=== PATIENT | female | born 1975 | race African-American/Black ===

== ENCOUNTER 2017-11-04 17:26 | Observation (INO) | payer MEDICAID ==
[~2017-11-04] VITALS: Ht 172.7 cm; Wt 113.8 kg
--- NOTE | ~2017-11-04 | HP ---
PATIENT: MARCI DUENAS MEDICAL RECORD: [id number] ACCOUNT: [id number] LOCATION:[address] : 77 ADMISSION DATE: 11/04/17 HISTORY AND PHYSICAL EXAMINATION DATE OF ADMISSION: 11/04/2017 CHIEF COMPLAINT: Dizzy, lightheaded, chest pain, and elevated blood pressure. 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 In the ER, blood pressure was elevated. EKG looked okay. Her troponin has bumped up a little. She is admitted for further evaluation. PAST MEDICAL AND SURGICAL HISTORY: Diabetes, hypertension and she states she had a cardiac workup about a year ago and she does remember the word was congestive heart failure. This was done at [facility]. PAST SURGICAL HISTORY: section times 3. ALLERGIES: None. HOME MEDICATIONS: Lisinopril 20 mg once a day, metformin 500 mg twice a day. She was on a statin drug, but stopped due to side effects. HABITS: No smoking, alcohol or drugs. SOCIAL HISTORY: She is single, lives with her 3 children. 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 FAMILY HISTORY: Father is alive. He has had 2 heart attacks and has hypertension. Mother is alive; she has diabetes and hypertension. REVIEW OF SYSTEMS: GENERAL: No major weight changes. HEENT: No particular sinus or allergy problems. RESPIRATORY: She has had pneumonia once. No diagnosis of asthma or emphysema. CARDIAC: Again, she had a heart workup at [facility] over a year ago and it was reportedly normal. GASTROINTESTINAL: Denies diarrhea, constipation, or reflux. GENITOURINARY: No significant problems there. MUSCULOSKELETAL: She has some aches and pains in her hands. NEUROLOGIC: No headaches or seizures. PSYCHIATRIC: Denies depression or melancholia. PHYSICAL EXAMINATION: VITAL SIGNS: Temperature 98.4, pulse 85, respirations 16, blood pressure 162/82, O2 sat 99%. GENERAL: She is awake and alert, does not appear to be in acute distress. HEENT: Unremarkable. NECK: Supple. HEART: Regular rate and rhythm. LUNGS: Fairly clear. ABDOMEN: Soft, flat, and nontender. HISTORY AND PHYSICAL [id number] MARCI DUENAS EXTREMITIES: No edema. NEUROLOGIC: Intact. IMAGING: Chest x-ray shows no acute cardiopulmonary process. LABORATORY DATA: CBC showed a white count of 6200, hemoglobin 10.9, hematocrit 33.8. Chemistry, basic metabolic panel is all normal except glucose is 399, calcium is 8.8. Liver functions are normal. Troponin is elevated at 0.229. ProBNP is 69. Urinalysis; trace blood, positive nitrite, trace leukocyte esterase, 10 to 25 white blood cells, many bacteria, 1000 mg per deciliter of glucose. ASSESSMENT: 1. Chest pain with elevated troponin. 2. Diabetes. 3. Hypertension. PLAN: We will admit. Consult cardiology. Other tests and procedures as warranted. TRANSINT:[id number] Voice Confirmation ID: [id number] DOCUMENT ID: [id number] AURORA MORE MD at 1012 CC: [id number] DICTATION DATE: 11/05/17 180 PLC TECHNICIAN: 11/05/17 191 ADM IN [facility] [address] [id number]
[2017-11-04 18:22] LABS: BASOPHILS 0.3 % (0-2); EOSINOPHILS 1.6 % (0-7); HEMATOCRIT 33.8 % (36.0-48.0); HEMOGLOBIN 10.9 g/dL (12-16); IMMATURE GRANULOCYTES 0.2 % (0-5); LYMPHOCYTES 39.1 % (15-50); MCH 27.3 pg (26.0-34.0); MCHC 32.2 g/dL (31.0-37.0); MCV 84.7 fL (80.0-100.0); MEAN PLATELET VOLUME 9.2 fL (7.4-10.4); MONOCYTES 7.4 % (2-11); NEUTROPHILS 51.4 % (40-80); PLATELET COUNT 367 10x3/uL (130-400); RBC 3.99 10x6/uL (4.00-5.40); RDW 12.7 % (11.5-14.5); WBC 6.2 10x3/uL (4.8-10.8)
[2017-11-04 18:39] LABS: ALBUMIN 3.3 g/dL (3.4-5.0); ANION GAP 9.2 mmol/L (8-16); BILIRUBIN - TOTAL 0.21 mg/dL (0.2-1.3); CALCIUM 8.8 mg/dL (8.5-10.1); CARBON DIOXIDE 30.7 mmol/L (21.0-32.0); POTASSIUM - SERUM 3.9 mmol/L (3.5-5.1); PROTEIN - SERUM 7.1 g/dL (6.4-8.2)
[2017-11-04 18:45] LABS: TROPONIN-I 0.235 ng/mL (0.000-0.060)
[2017-11-04 19:39] LABS: APPEARANCE SLT CLOUDY (CLEAR); COLOR YELLOW (YELLOW); GLUCOSE 1000 mg/dL (NEGATIVE); NITRITE POSITIVE (NEGATIVE); PROTEIN NEGATIVE (NEGATIVE); SPECIFIC GRAVITY 1.015 (1.005-1.020)
[2017-11-04 19:40] LABS: BILIRUBIN NEGATIVE (NEGATIVE); KETONE NEGATIVE (NEGATIVE); UROBILINOGEN NORMAL (NORMAL)
[2017-11-04 19:42] LABS: BACTERIA MANY /hpf (NONE SEEN); EPITHELIAL CELLS 0-5 /hpf (0-5)
[2017-11-05] VITALS (7 sets, daily range): BP systolic 145–174; BP diastolic 80–98; Ht 172.7 cm; Wt 113.8 kg
[2017-11-05 00:06] LABS: CKMB 1.1 U/L (0.0-3.6); CREATINE KINASE 103 UL (21-215)
[2017-11-05 00:07] LABS: TROPONIN-I 0.229 ng/mL (0.000-0.060)
[2017-11-05] MEDS ORDERED: PRINIVIL20 MG PO (02:47)
[2017-11-05] MEDS ORDERED: GLUCOPHAGE500 MG PO (02:49)
[2017-11-05 04:36] LABS: CKMB 0.9 U/L (0.0-3.6); CREATINE KINASE 105 UL (21-215)
[2017-11-05 04:43] LABS: TROPONIN-I 0.246 ng/mL (0.000-0.060)
[2017-11-05 10:05] LABS: CKMB 0.8 U/L (0.0-3.6); CREATINE KINASE 101 UL (21-215)
[2017-11-05 10:06] LABS: TROPONIN-I 0.251 ng/mL (0.000-0.060)
[2017-11-06 06:11] VITALS: BP 151/87
[2017-11-06 08:36] VITALS: BP 151/80
[2017-11-06 11:50] VITALS: BP 139/80
[2017-11-06] MEDS ORDERED: LEVAQUIN250 MG PO (13:48)
[2017-11-06] MEDS ORDERED: GLUCOPHAGE1000 MG PO (13:49)
[2017-11-06 15:12] VITALS: BP 158/80
== END 2017-11-06 15:44 | disposition home or self-care (01) ==
LOC: D.ER 17:26 → D.M2 21:05 → OBSVTIME 21:05 → D.M2 11-06 15:44
PROVIDERS: Emergency Medicine; Family Medicine; Physician Assistant
DX: N39.0 Urinary tract infection, site not specified (principal); B96.20 Unspecified Escherichia coli [E. coli] as the cause of diseases classified elsewhere; E11.65 Type 2 diabetes mellitus with hyperglycemia; I10 Essential (primary) hypertension; I24.8 Other forms of acute ischemic heart disease

== ENCOUNTER 2018-01-04 17:37 | Observation (INO) | payer MEDICAID ==
[~2018-01-04] VITALS: Ht 172.7 cm; Wt 109.3 kg
--- NOTE | ~2018-01-04 | HP ---
PATIENT: MARCI DUENAS MEDICAL RECORD: [id number] ACCOUNT: [id number] LOCATION:[address] : 77 ADMISSION DATE: 01/04/18 HISTORY AND PHYSICAL EXAMINATION DIAGNOSES: 1. Acute coronary syndrome. 2. Diabetes. 3. Family history of coronary artery disease. HISTORY OF PRESENT ILLNESS: Mrs. Duenas has no history of ischemic heart disease. She began having chest tightness yesterday. Her troponin is mildly elevated. She has continued to have episodes of chest tightness. REVIEW OF SYSTEMS: The patient reports easy bruising but reports no swollen glands. The patient reports no fever, no night sweats, no significant weight gain, no significant weight loss. No significant exercise tolerance. The patient reports no dry eyes, no irritation, no vision change. Patient reports no difficulty hearing and no ear pain. Patient reports no frequent nose bleeds or nose and sinus problems. Patient reports on arm pain on exertion. No shortness of breath while lying down. No history of heart murmur. Patient reports no cough, no wheezing or coughing up blood. Patient reports no abdominal pain, no vomiting. Normal appetite. No diarrhea and not vomiting blood. No nausea and no constipation. Patient reports no incontinence. No difficulty urinating. No hematuria. No increased frequency. Patient reports no muscle aches. No weakness, no arthralgias, no back pain. No swelling of the extremities. Patient reports no abnormal mole, no jaundice, no rashes. Reports no loss of consciousness. No weakness and no numbness. No seizures, dizziness, or headaches. The patient reports no depression, no sleep disturbance, feeling safe in a relationship and no alcohol abuse. Patient reports on fatigue. Reports no runny nose or sinus pressure. No itching, no hives, and no frequent sneezing. PHYSICAL EXAMINATION: GENERAL APPEARANCE: Well-nourished, well-developed, appears stated age. Level of distress, comfortable. PSYCHIATRIC: Mental status, alert, normal affect. Orientation, oriented to time, place and person. EYES: Lids and conjunctiva, noninjected. No discharge, no pallor. ENT: Lips, teeth, gums, normal dentition. Oropharynx, no cyanosis, no pallor. NECK: Carotid arteries, bilateral normal upstroke, no bruits, no thrills. JUGULAR VEINS: No jugular venous pressure or distention. CERVICAL LYMPH NODES: Nontender, nonenlarged. THYROID: Not enlarged. Nontender. No nodules. LUNGS: Respiratory effort, unlabored. CHEST: Normal curvature. No thoracic deformity. No chest wall tenderness. Percussion, resonant. Auscultation, clear. No wheezes, no rales, no rhonchi. CARDIOVASCULAR: Precordial exam, nondisplaced. No heaves or pericardial thrills. Rate and rhythm, regular. Heart sounds, normal S1, normal S2. No S3, no gallop, no rub. Systolic murmur, not heard. Diastolic murmur, not heard. EXTREMITIES: No cyanosis, no edema. Peripheral pulses, full and equal in all extremities, except as noted. No bruits appreciated. ABDOMEN: Soft, nondistended. Normal aorta. No bruit. Nontender. No masses. Liver, nontender, no hepatomegaly. Spleen, nontender, no splenomegaly. MUSCULOSKELETAL: No joint tenderness. No joint swelling. No erythema. HISTORY AND PHYSICAL [id number] MARCI DUENAS NEUROLOGICAL: Normal gait, normal strength, normal tone. SKIN: Warm and dry. OVERALL IMPRESSION: Acute coronary syndrome with mildly elevated troponin with continued chest pain. We will proceed with coronary angiography. Further care depends upon the findings of the angiography. TRANSINT:[id number] Voice Confirmation ID: [id number] DOCUMENT ID: [id number] MIRIAM HARMON MD at 1202 CC: [id number] DICTATION DATE: 01/05/18839 NATIONAL SALES REPRESENTATIVE: 01/05/18922 DIS IN 01/05/18 [place] [address]
--- NOTE | ~2018-01-04 | OP ---
PATIENT NAME: MARCI DUENAS MEDICAL RECORD: [id number] :77 LOCATION:D[address]M2 [address].2121 ADMISSION DATE:01/04/18 SURGEON: MIRIAM HARMON MD DATE OF OPERATION: 01/05/2018 PROCEDURES: 1. Left heart catheterization. 2. Selective coronary angiography. 3. Left ventriculogram. INDICATION: Elevated troponin, acute coronary syndrome, angina. PROCEDURE IN DETAIL: After informed consent was obtained and after detailed explanation of risks, benefits as well as alternative therapies, the patient elected to proceed with angiogram and heart catheterization. The right femoral area was prepped and draped in normal sterile fashion. Right femoral artery was cannulated via modified Seldinger technique with placement of 5-Iranian sheath. All catheters exchanged through this sheath. FINDINGS: The left ventriculogram was performed in standard 30-degree GARCIA view, reveals good cardiac wall motion throughout all segments. Overall ejection fraction estimated 60%. SELECTIVE CORONARY ANGIOGRAPHY: Left main, left anterior descending, left circumflex, right coronary all have minimal irregularities, but no discrete flow-limiting stenosis. OVERALL IMPRESSION: Minimal coronary artery disease is present. No flow-limiting stenosis. Her elevated troponin and chest pain are secondary to demand ischemia. Standard medical management on treatment of the heart rate and blood pressure. TRANSINT:[id number] Voice Confirmation ID: [id number] DOCUMENT ID: [id number] MIRIAM HARMON MD at 1202 CC: [id number] DICTATION DATE: 01/05/18 0920 DONOR RELATIONS MANAGER: 01/05/18 1121 DIS IN 01/05/18 [address] [place] [address]
--- NOTE | ~2018-01-04 | HEMODYNAMI ---
PATIENT:MARCI DUENAS MEDICAL RECORD: [id number] : 77 LOCATION:[address] [place] [facility] [id number] ADMISSION DATE: 01/04/18 Generatedon:01/05/20189:20 Patient name: MARCI DUENAS Patient #: [id number] SSN: : 1975 Date of study: 01/05/2018 Page: Of Hemodynamic Procedure Report Patient Data Patient Demographics Procedure consent was obtained First Name: MARCI Gender: Female Last Name: HENRIQUE : 1975 Middle Initial: E Age: 42 year(s) Patient #: [id number] Race: Black Additional ID: [id number] Contact details Address: [address] [place] [address] State: [place] City: [place] Zip code: [address] Past Medical History Allergies: No known allergies Admission Admission Data Admission Date: 01/04/2018 Admission Time: 21:36 Room #: 2121 Procedure Procedure Types Cath Procedure Diagnostic Procedure LHC LHC w/Coronaries Procedure Description Procedure Date Procedure Date: 01/05/2018 Procedure Start Time: 9:11 Procedure End Time: 9:20 Procedure Staff Name Function Basim Avalos MD Performing Physician Naila Reid RT Monitor Lm Yi RN Nurse Irma Hahn RT Scrub Procedure Data Cath Procedure Fluoroscopy Diagnostic fluoroscopy Total fluoroscopy Time: 0.8 time: 0.8 min min Diagnostic fluoroscopy Total fluoroscopy dose: 423 dose: 423 mGy mGy Contrast Material Contrast Material Type Amount (ml) Isovue 300 50 Entry Location Entry Primary Successful Side Size Upsize Upsize Entry Closure Succes sful Closure Location (Fr) 1 (Fr) 2 (Fr) Remarks Device Remarks Femoral Right 5 Fr Exoseal artery Estimated blood loss: 5 ml Diagnostic catheters Device Type Used For End Catheter Placement MULTIPACK Pigtail 5 Fr LV Angiography catheter MULTIPACK JL 4.0 5Fr Left Coronary catheter Angiography MULTIPACK 3DRC 5Fr Right Coronary catheter Angiography Procedure Complications No complications Procedure Medications Medication Administration Route Dosage 0.9% NaCl I.V. 100 ml/hr Oxygen NC 2 l/min Heparin Flush Bag added to field 2 bags (1000units/500ml NS) Lidocaine 2% added to field 20 Versed I.V. 1 mg Fentanyl I.V. 50 mcg Versed I.V. 1 mg Fentanyl I.V. 50 mcg Hemodynamics Rest Heart Rate: 104 (bpm) Snapshots Pre Cath Intra NCS Post Cath Vital Signs Time Heart Resp SPO2 etCO2 NIBP (mmHg) Rhythm Pain Sedation Rate (ipm) (%) (mmHg) Status Level (bpm) 9:07:01 89 19 100 28.4 167/101(133) NSR 0 (11) 10(A) , No pain 9:12:00 88 21 100 40.3 187/106(143) NSR 0 (11) 10(A) , No pain 9:17:03 93 16 100 42.6 181/97(146) NSR 0 (11) 10(A) , No pain Medications Time Medication Route Dose Verified Delivered Reason Notes Effec tiveness by by 9:06:53 0.9% NaCl I.V. 100 Lm Lm Per ml/hr Lorigan Lorigan physician RN RN 9:07:03 Oxygen NC 2 Lm Lm Per l/min Lorigan Lorigan physician RN RN 9:07:14 Heparin Flush added 2 Lm Lm used for Bag to bags Lorigan Lorigan procedure (1000units/500ml field RN RN NS) 9:07:30 Lidocaine 2% added 20ml Lm Ml for local to vial Lorigan Lorigan anesthetic field RN RN 9:11:01 Versed I.V. 1 mg Lm Lm for Lorigan Lorigan sedation RN RN 9:11:10 Fentanyl I.V. 50 Lm Lm for mcg Lorigan Lorigan sedation RN RN 9:15:16 Versed I.V. 1 mg Lm Lm for Lorigan Lorigan sedation RN RN 9:15:26 Fentanyl I.V. 50 Lm Lm for mcg Lorigan Lorigan sedation RN metallurgical engineering technician Log Time Note 8:47:01 Naila Counts RT(R) sent for patient. Start room use. 8:57:48 Time tracking: Call back 8:57:52 Plan of Care:Hemodynamics will remain stable., Cardiac rhythm will remain stable., Comfort level will be maintained., Respiratory function will remain adequate., Patient/ family verbilizes understanding of procedure., Procedure tolerated without complication., Recovers from procedure without complications.. 8:57:56 Patient received from PCU to CCL 1 Alert and oriented. Tansferred to table in Supine position. 8:57:57 Warm blankets applied, and daniela hugger turned on for patient comfort. 8:57:58 Correct patient and procedure confirmed by team. 8:57:59 Signed procedure consent form obtained from patient. 8:58:00 ECG and BP/O2 sat monitors applied to patient. 8:58:01 Full Disclosure recording started 9:05:51 Vital chart was started 9:05:54 Rhythm: sinus rhythm 9:06:03 H&P Date Dictated: 01/05/2018 ER History on chart., New H&P dictated by physician.. 9:06:04 Pre-procedure instructions explained to patient. 9:06:04 Pre-op teaching completed and patient verbalized understanding. 9:06:06 Family in waiting room. 9:06:07 Patient NPO since Midnight. 9:06:14 Patient allergic to No known allergies 9:06:16 Is the patient allergic to Iodine/contrast media? No. 9:06:19 Is patient on blood thinner?No 9:06:20 Patient diabetic? Yes. 9:06:21 If diabetic: On Metformin? Yes 9:06:23 If on Metformin: Last Dose? 01/04/2018 9:06:27 Previous problem with sedation/anesthesia? No ? 9:06:28 Snore? Yes 9:06:29 Sleep apnea? No 9:06:30 Deviated septum? No 9:06:31 Opens mouth fully? Yes 9:06:31 Sticks out tongue? Yes 9:06:33 Airway obstruction? No ? 9:06:34 Dentures? No ? 9:06:37 Pre procedure: right dorsailis pedis pulse 2+ Normal; easily identifiable; not easily obliterated 9:06:41 Modified Lloyd's test Ulnar > 7 seconds. 9:06:43 Patient pain scale 0/10 ?. 9:06:47 IV patent on arrival in left forearm with 0.9% NaCl at O. 9:06:51 Lab results completed and on chart. 9:06:53 0.9% NaCl 100 ml/hr I.V. was administered by Lm Lorigan RN; Per physician; 9:06:53 Right groin area was prepped with chlora-prep and draped in sterile fashion 9:06:54 Alarms reviewed by R. N. 9:06:54 Sharps counted by scrub and verified by R.N. 9:06:59 Use device set Femoral Dx 9:07:00 ACIST Syringe (15592) opened to sterile field. 9:07:00 Bag Decanter (2002S) opened to sterile field. 9:07:00 Medline Cath Pack ([id number]) opened to sterile field. 9:07:01 SHEATH 5FR Nebo (IQB324) opened to sterile field. 9:07:01 DIAGNOSTIC WIRE .035 260cm J wire (037813) opened to sterile field. 9:07:03 Oxygen 2 l/min NC was administered by Lm Yi RN; Per physician; 9:07:05 ACIST Hand Control (37179) opened to sterile field. 9:07:06 ACIST Manifold (18892) opened to sterile field. 9:07:06 DIAGNOSTIC Multipack 5Fr catheter set ([id number]) opened to sterile field. 9:07:07 Tegaderm 4 x 4 (1626W) opened to sterile field. 9:07:07 PERCUTANEOUS ENTRY 19GA needle opened to sterile field. 9:07:14 Heparin Flush Bag (1000units/500ml NS) 2 bags added to field was administered by Lm Yi RN; used for procedure; 9:07:30 Lidocaine 2% 20ml vial added to field was administered by Lm Yi RN; for local anesthetic; 9:09:11 Final Timeout: patient, procedure, and site verified with staff and physician. All members of the team are in agreement. 9:09:13 Right groin site verified by team. 9:09:15 Physical assessment completed. ASA score P 2 - A patient with mild systemic disease as per Basim Avalos MD. 9:09:18 Sedation plan: IV Moderate Sedation Medication:Versed, Fentanyl 9:11:01 Versed 1 mg I.V. was administered by Lm Yi RN; for sedation; 9:11:10 Fentanyl 50 mcg I.V. was administered by Lm Yi RN; for sedation; 9:11:23 Zero performed for pressure channel P1 9:11:28 Procedure started. 9:11:30 Local anesthetic to right femoral artery with Lidocaine 2% by Basim Avalos MD.INITIAL ACCESS ONLY 9:11:38 A 5 Fr sheath was inserted into the Right Femoral artery 9:11:45 Baseline sample Acquired. 9:12:35 A MULTIPACK Pigtail 5 Fr catheter was advanced over the wire and used for LV Angiography. 9:12:38 Zero performed for pressure channel P1 9:12:41 Zero performed for pressure channel P1 9:12:43 Zero performed for pressure channel P1 9:12:46 Zero performed for pressure channel P1 9:13:14 LV gram done using GARCIA 9:: Injector settings: Ml/sec: 5, Volume: 15, 9:13: EF : 60 % 9::28 Catheter removed. 9:14:01 A MULTIPACK JL 4.0 5Fr catheter was advanced over the wire and used for Left Coronary Angiography. 9:14:57 Catheter removed. 9:15:05 A MULTIPACK 3DRC 5Fr catheter was advanced over the wire and used for Right Coronary Angiography. 9:15:16 Versed 1 mg I.V. was administered by Lm Yi RN; for sedation; 9:15:26 Fentanyl 50 mcg I.V. was administered by Lm Yi RN; for sedation; 9:15:39 Catheter removed. 9:15:44 EXOSEAL 5Fr (EX500) opened to sterile field. 9:15:52 Sheath removed intact; hemostasis achieved with Exoseal to the Right Femoral artery. 9:15:54 Procedure ended.(Physican Out) 9:16:03 Fluoroscopy time 00.80 minutes. 9:16:06 Flurop Dose total: 423 9:16:06 Fluoroscopy dose: 423 mGy 9:16:15 Contrast amount:Isovue 300 50ml. 9:16:17 Sharps counted by scrub and verified by R.N. 9:16:18 Insertion/operative site no bleeding no hematoma. 9:16:21 Post-op/insertion site Right Femoral artery dressed using a 4 x 4 and Tegaderm. 9:16:25 Post right femoral artery:stable, clean and dry 9:16:26 Post Procedure Pulses reassessed and unchanged 9:16:39 Post-procedure physical assessment completed. ASA score P 2 - A patient with mild systemic disease as per Basim Avalos MD. 9:16:47 Post procedure rhythm: unchanged. 9:16:50 Estimated blood loss: 5 ml 9:16:51 Post procedure instruction explained to patient.Patient verbalizes understanding. 9:16:56 Patient needs reinforcement of post procedure teaching. 9:17:05 Procedure Complication : No complications 9:17:07 See physician's report for complete and final results. 9:17:20 Procedure and supply charges have been captured, reviewed, submitted and are correct. 9:20:24 Vital chart was stopped 9:20:26 Report given to PCU. 9:20:28 Patient transfered to PCU with Bed. 9:20:30 Procedure ended. 9:20:30 Full Disclosure recording stopped 9:20:38 End room use (Document Last) Device Usage Item Name Manufacture Quantity Catalog Hospital Part Current Minimal Lot# / Number Charge Number Stock Stock Serial# Code ACIST Acist 1 40704 [id number] 299569 280224 20 Syringe Medical (82034) Systems Inc Bag Decanter Microtek 1 2001S 154624 98140 409846 5 () Medical Inc. Medline Cath Cardinal 1 [id number] 698940 07163 177379 5 Pack Health ([id number]) SHEATH 5FR Terumo 1 CLS584 676740 440199 689184 40 Nebo (LNA284) DIAGNOSTIC St Evangelist 1 447212 142753 718532 387700 30 WIRE .035 260cm J wire (165135) ACIST Hand Acist 1 01096 371825 593832 733226 5 Control Medical (87720) Systems Inc ACIST Acist 1 68289 193628 852461 931630 5 Manifold Medical (27873) Systems Inc DIAGNOSTIC Cardinal 1 GH5198 474159 32229 401868 30 Multipack Health 5Fr catheter set (RK0002) Tegaderm 4 x 3M 1 1626W 811667 681148 398753 5 4 (1626W) PERCUTANEOUS Cook Medical 1 V21050 476012 836990 5 ENTRY 19GA needle MULTIPACK Cardinal 1 905208 5 Pigtail 5 Fr Health catheter MULTIPACK JL Cardinal 1 536883 5 4.0 5Fr Health catheter MULTIPACK Cardinal 1 644275 5 3DRC 5Fr Health catheter EXOSEAL 5Fr Cardinal 1 EX500 013864 550815 071096 10 (EX500) Health Signature Audit [place] Stage Time Signature Unsigned Intra-Procedure 01/05/2018 Naila 9:20:49 AM Counts RT(R) Signatures Monitor : Naila Signature : Counts RT Date : Time : [address] [place] [address]
--- NOTE | ~2018-01-04 | DS ---
PATIENT:MARCI DUENAS :77 MEDICAL RECORD: [id number] DISCHARGE SUMMARY ADMISSION DATE: 01/04/18 DISCHARGE DATE: 01/05/18 DISCHARGE DIAGNOSES: 1. Acute coronary syndrome, elevated troponin. 2. Minimal coronary artery disease. 3. Hypertension. 4. Tachycardia. 5. Diabetes. HOSPITAL COURSE: Mrs. Duenas presents with chest pain and angina with a minimally elevated troponin; however, cardiac catheterization showed minimal coronary disease. This is secondary to demand ischemia. She was placed on Lopressor 50 mg b.i.d. as well as aspirin 81 mg every day. Will follow up with [facility] in 1 month. TRANSINT:[id number] Voice Confirmation ID: [id number] DOCUMENT ID: [id number] MIRIAM HARMON MD at 1202 CC: [id number] DICTATION DATE: 01/05/18920 CLINICAL TRIAL COORDINATOR: 01/05/18 1142 DIS IN 01/05/18 [address] [place] [address]
[~2018-01-04 17:37] MED LIST: GLUCOPHAGE1000 MG PO; GLUCOPHAGE500 MG PO; LEVAQUIN250 MG PO; PRINIVIL20 MG PO
[2018-01-04 18:53] LABS: BASOPHILS 0.2 % (0-2); EOSINOPHILS 0.8 % (0-7); HEMATOCRIT 32.7 % (36.0-48.0); HEMOGLOBIN 10.6 g/dL (12-16); IMMATURE GRANULOCYTES 0.2 % (0-5); LYMPHOCYTES 26.4 % (15-50); MCHC 32.4 g/dL (31.0-37.0); MCV 83.4 fL (80.0-100.0); MEAN PLATELET VOLUME 8.9 fL (7.4-10.4); MONOCYTES 5.3 % (2-11); NEUTROPHILS 67.1 % (40-80); PLATELET COUNT 404 10x3/uL (130-400); RBC 3.92 10x6/uL (4.00-5.40); RDW 12.9 % (11.5-14.5); WBC 13.4 10x3/uL (4.8-10.8)
[2018-01-04 19:22] LABS: ALBUMIN 3.6 g/dL (3.4-5.0); ALKALINE PHOSPHATASE 88 U/L (46-116); ALT (SGPT) 20 U/L (10-68); BILIRUBIN - TOTAL 0.21 mg/dL (0.2-1.3); CALCIUM 9.4 mg/dL (8.5-10.1); CARBON DIOXIDE 32.4 mmol/L (21.0-32.0); CHLORIDE - SERUM 99 mmol/L (98-107); CKMB 1.3 U/L (0.0-3.6); CREATINE KINASE 125 UL (21-215); PROTEIN - SERUM 7.8 g/dL (6.4-8.2); SODIUM 137 mmol/L (136-145); UREA NITROGEN 17 mg/dL (7-18); eGFR NON AFRICAN AMERICAN 65 mL/min (90-120)
[2018-01-04 19:30] LABS: CALC OSMOLALITY 284 mosm/kg (275-300); GLUCOSE 258 mg/dL (74-106)
[2018-01-04 19:38] LABS: POTASSIUM - SERUM 2.8 mmol/L (3.5-5.1); TROPONIN-I 0.075 ng/mL (0.000-0.060)
[2018-01-04 20:19] LABS: LIPASE 396 U/L (73-393); PRO BNP 43 pg/mL (0-125)
[2018-01-04 20:23] LABS: APPEARANCE CLEAR (CLEAR); BILIRUBIN NEGATIVE (NEGATIVE); COLOR YELLOW (YELLOW); GLUCOSE 50 mg/dL (NEGATIVE); NITRITE NEGATIVE (NEGATIVE); PROTEIN 1+ mg/dL (NEGATIVE); UROBILINOGEN NORMAL (NORMAL)
[2018-01-04 20:24] LABS: BACTERIA FEW /hpf (NONE SEEN); EPITHELIAL CELLS 0-5 /hpf (0-5); RED CELLS - URINE 0-5 /hpf (0-5); WHITE CELLS - URINE 0-5 /hpf (0-5)
[2018-01-04 20:51] LABS: KETONE NEGATIVE (NEGATIVE)
[2018-01-04 23:02] LABS: CKMB 1.2 U/L (0.0-3.6); CREATINE KINASE 107 UL (21-215)
[2018-01-04 23:04] LABS: TROPONIN-I 0.075 ng/mL (0.000-0.060)
[2018-01-04] MEDS ORDERED: CHLORTHALIDONE25 MG PO (23:47)
[2018-01-04] MEDS ORDERED: COREG6.25 MG PO (23:47)
[2018-01-05] VITALS: BP 140/76
[2018-01-05 03:53] LABS: BASOPHILS 0.2 % (0-2); EOSINOPHILS 0.7 % (0-7); HEMATOCRIT 30.2 % (36.0-48.0); HEMOGLOBIN 9.6 g/dL (12-16); IMMATURE GRANULOCYTES 0.1 % (0-5); LYMPHOCYTES 32.8 % (15-50); MCH 26.4 pg (26.0-34.0); MCHC 31.8 g/dL (31.0-37.0); MEAN PLATELET VOLUME 9.1 fL (7.4-10.4); NEUTROPHILS 61.2 % (40-80); PLATELET COUNT 358 10x3/uL (130-400); RBC 3.64 10x6/uL (4.00-5.40); RDW 12.9 % (11.5-14.5)
[2018-01-05 04:00] VITALS: BP 125/70
[2018-01-05 04:10] LABS: ANION GAP 11.3 mmol/L (8-16); BILIRUBIN - TOTAL 0.2 mg/dL (0.2-1.3); CALCIUM 8.8 mg/dL (8.5-10.1); CARBON DIOXIDE 30.2 mmol/L (21.0-32.0); CREATININE - SERUM 0.9 mg/dL (0.6-1.3); PROTEIN - SERUM 6.4 g/dL (6.4-8.2)
[2018-01-05 04:22] LABS: CKMB 1.2 U/L (0.0-3.6); CREATINE KINASE 93 UL (21-215)
[2018-01-05 04:23] LABS: POTASSIUM - SERUM 3.5 mmol/L (3.5-5.1); TROPONIN-I 0.079 ng/mL (0.000-0.060)
[2018-01-05 05:46] VITALS: BP 140/76; Ht 172.7 cm; Wt 109.3 kg
[2018-01-05 08:10] VITALS: BP 150/80
[2018-01-05 10:05] LABS: CKMB 2.8 U/L (0.0-3.6); CREATINE KINASE 41 UL (21-215); TROPONIN-I 0.056 ng/mL (0.000-0.060)
[2018-01-05] MEDS ORDERED: METOPROLOL TART50 MG PO (11:23)
[2018-01-05] MEDS ORDERED: ASPIRIN81 MG PO (11:25)
== END 2018-01-05 14:18 | disposition home or self-care (01) ==
LOC: D.ER 17:37 → D.M2 21:36 → OBSVTIME 21:37 → D.M2 01-05 00:30
PROVIDERS: Emergency Medicine; Family Medicine; Internal Medicine Interventional Cardiology; Nurse Practitioner Family
DX: I24.8 Other forms of acute ischemic heart disease (principal); I25.10 Atherosclerotic heart disease of native coronary artery without angina pectoris; E11.9 Type 2 diabetes mellitus without complications; I10 Essential (primary) hypertension

== ENCOUNTER 2018-10-07 19:37 | Emergency (ER) | payer MEDICAID ==
[~2018-10-07] VITALS: Ht 172.7 cm; Wt 109.1 kg
[~2018-10-07 19:37] MED LIST changes: +ASPIRIN81 MG PO; +CHLORTHALIDONE25 MG PO; +COREG6.25 MG PO; +METOPROLOL TART50 MG PO
[2018-10-07 19:39] VITALS: BP 145/81; Ht 172.7 cm; Wt 109.1 kg
== END 2018-10-07 20:35 | disposition home or self-care (01) ==
LOC: D.ER 19:37
DX: S80.01XA Contusion of right knee, initial encounter (principal); W13.3XXA Fall through floor, initial encounter; Y93.89 Activity, other specified; Y92.89 Other specified places as the place of occurrence of the external cause; R60.0 Localized edema; E11.9 Type 2 diabetes mellitus without complications; I10 Essential (primary) hypertension

== ENCOUNTER 2019-02-27 16:59 | Emergency (ER) | payer MEDICAID ==
[~2019-02-27] VITALS: Ht 172.7 cm; Wt 113.6 kg
[2019-02-27 17:28] VITALS: Ht 172.7 cm; Wt 113.6 kg
[2019-02-27 18:20] LABS: BASOPHILS 0.2 % (0-2); EOSINOPHILS 1.4 % (0-7); HEMATOCRIT 31.6 % (36.0-48.0); HEMOGLOBIN 10.2 g/dL (12-16); IMMATURE GRANULOCYTES 0.3 % (0-5); LYMPHOCYTES 26.4 % (15-50); MCH 25.7 pg (26.0-34.0); MCHC 32.3 g/dL (31.0-37.0); MCV 79.6 fL (80.0-100.0); MONOCYTES 6.7 % (2-11); PLATELET COUNT 335 10x3/uL (130-400); RBC 3.97 10x6/uL (4.00-5.40); RDW 14.4 % (11.5-14.5); WBC 11.8 10x3/uL (4.8-10.8)
[2019-02-27 18:41] LABS: ALBUMIN 3.2 g/dL (3.4-5.0); ALKALINE PHOSPHATASE 106 U/L (46-116); ALT (SGPT) 16 U/L (10-68); BILIRUBIN - TOTAL 0.21 mg/dL (0.2-1.3); CALC OSMOLALITY 279 mosm/kg (275-300); CALCIUM 8.6 mg/dL (8.5-10.1); CARBON DIOXIDE 25.1 mmol/L (21.0-32.0); CHLORIDE - SERUM 102 mmol/L (98-107); CREATININE - SERUM 0.9 mg/dL (0.6-1.3); GLUCOSE 269 mg/dL (74-106); PROTEIN - SERUM 7.4 g/dL (6.4-8.2); SODIUM 135 mmol/L (136-145); UREA NITROGEN 14 mg/dL (7-18); eGFR NON AFRICAN AMERICAN 73 mL/min (90-120)
[2019-02-27 19:00] LABS: CKMB 0.8 U/L (0.0-3.6); CREATINE KINASE 126 UL (21-215); MAGNESIUM - SERUM 1.7 mg/dL (1.8-2.4); THYROID STIMULATING HORMONE 1.16 uIU/mL (0.36-3.74)
[2019-02-27 19:06] LABS: TROPONIN-I 0.081 ng/mL (0.000-0.060)
[2019-02-27] MEDS ORDERED: PREDNISONE20 MG PO (19:14)
[2019-02-27 19:18] LABS: INR 0.99 (0.85-1.17)
[2019-02-27 20:10] VITALS: BP 178/83
[2019-02-27 20:30] LABS: APTT 20.6 SECONDS (22.8-39.4)
== END 2019-02-27 20:10 | disposition home or self-care (01) ==
LOC: D.ER 16:59
PROVIDERS: Family Medicine
DX: G51.0 Bell's palsy (principal)

== ENCOUNTER 2019-08-18 13:49 | Inpatient (IN) | payer MEDICAID ==
[~2019-08-18] VITALS: Ht 172.7 cm; Wt 118.4 kg
--- NOTE | ~2019-08-18 | HEMODYNAMI ---
PATIENT:MARCI DUENAS MEDICAL RECORD: [id number] : 77 [facility]# [id number] ADMISSION DATE: 08/18/19 Generatedon:08/19/201910:45 Patient name: MARCI DUENAS Patient #: [id number] SSN: [id number] : 1975 Date of study: 08/19/2019 Page: Of Hemodynamic Procedure Report Patient Data Patient Demographics Procedure consent was obtained First Name: MARCI Gender: Female Last Name: HENRIQUE : 1975 [facility] Initial: E Age: 43 year(s) Patient #: [id number] Race: Black SSN: [id number] Additional ID: [id number] Contact details Address: [address] [place] [address] State: [place] City: [place] Zip code: [address] Past Medical History Allergies: No known allergies Admission Admission Data Admission Date: 08/18/2019 Admission Time: 13:49 Arrival Date: 08/19/2019 Arrival Time: 0:00 Admit Source: Other Insurance Payor: Medicaid Room #: D.2116 [facility] #: [id number] Height (in.): 68.11 BSA: 2.27 (m2) Height (cm.): 173 BMI: 38.76 (kg/m2) Weight (lbs.): 255.74 Weight (kg.): 116 Lab Results Lab Result Date: 08/19/2019 Lab Result Time: 0:00 Biochemistry Name Units Result Min Max BUN mg/dl 12 --(-*--)-- 7 18 Creatinine mg/dl 0.9 --(-*--)-- 0.6 1.3 eGFR ml/min 88.41045 -*(----)-- 90 120 AM CBC Name Units Result Min Max Hematocrit % 34.5 *-(----)-- 42 54 Hemoglobin g/dl 10.7 *-(----)-- 13.5 17.5 Procedure Procedure Types Cath Procedure Diagnostic Procedure [facility] w/Coronaries Procedure Description Procedure Date Procedure Date: 08/19/2019 Procedure Start Time: 10:32 Procedure End Time: 10:43 Procedure Staff Name Function Basim Avalos MD Performing Physician Virgie Suarez RT Monitor Jennifer Ackerman RT Monitor Nancy Perez RT Scrub Lm Yi RN Nurse Procedure Data Cath Procedure Fluoroscopy Diagnostic fluoroscopy Total fluoroscopy Time: 2.2 time: 2.2 min min Diagnostic fluoroscopy Total fluoroscopy dose: 564 dose: 564 mGy mGy Contrast Material Contrast Material Type Amount (ml) Isovue 300 59 Entry Location Entry Primary Successful Side Size Upsize Upsize Entry Closure Levy ccessful Closure Location (Fr) 1 (Fr) 2 (Fr) Remarks Device Remarks Radial Right 6 Fr Mechanical artery Short Compression Estimated blood loss: 5 ml Diagnostic catheters Device Type Used For End Catheter Placement DIAGNOSTIC [place] 110cm 5 Procedure Fr catheter ([id number]) Procedure Complications No complications Procedure Medications Medication Administration Route Dosage 0.9% NaCl I.V. 100 ml/hr Oxygen etCO2 Nasal cannula 2 l/min Heparin Flush Bag added to field 2 bags (1000units/500ml NS) Lidocaine 2% added to field 20 Radial Cocktail added to field 1 syringe (Verapamil 2mg/Nitro 400mcg/Heparin 1500units) Versed I.V. 2 mg Fentanyl I.V. 100 mcg Radial Cocktail I.A. 1 syringe (Verapamil 2mg/Nitro 400mcg/Heparin 1500units) Hemodynamics Rest BSA: 2.27 (m2) HGB: 10.7 (g/dl) O2 Consumption: Estimated: 263.42 (ml/min) O2 Co nsumption indexed: Estimated:116.04 (ml/min/m) Heart Rate: 110 (bpm) Snapshots Pre Cath Intra NCS Post Cath Vital Signs Time Heart Resp SPO2 etCO2 NIBP (mmHg) Rhythm Pain Sedation Rate (ipm) (%) (mmHg) Status Level (bpm) 10:18:54 109 24 98 0 131/95(114) NSR 0 (11) 10(A) , No pain 10:23:14 107 27 97 29.3 135/74(93) NSR 0 (11) 10(A) , No pain 10:27:32 102 25 100 32.3 117/69(88) NSR 0 (11) 10(A) , No pain 10:31:48 101 23 99 32.3 118/72(91) NSR 0 (11) 10(A) , No pain 10:36:08 108 26 97 30 107/62(85) NSR 0 (11) 9(A) , No pain 10:40:22 106 23 98 32.3 114/66(87) NSR 0 (11) 9(A) , No pain Medications Time Medication Route Dose Verified Delivered Reason Notes Effectiveness by by 10:25:13 0.9% NaCl I.V. 100 Lm Lm Per ml/hr Kassidy Yi physician RN RN 10:25:23 Oxygen etCO2 2 l/min Ml Lm for low 02 Nasal Lorigan Kassidy sats cannula RN RN 10:25:35 Heparin Flush added 2 bags Lm Lm used for Bag to Kassidy Yi procedure (1000units/500ml field RN RN NS) 10:25:47 Lidocaine 2% added 20ml Lm Lm for local to vial Lorigan Kinseyigan anesthetic field HOWARD RN 10:25:58 Radial Cocktail added 1 Lm Lm used for (Verapamil to syringe Lorigan Kinseyigan procedure 2mg/Nitro field HOWARD RN 400mcg/Heparin 1500units) 10:32:09 Versed I.V. 2 mg Lm Lm for sedation Kassidy Yi RN RN 10:32:19 Fentanyl I.V. 100 mcg Lm Lm for sedation Kassidy Yi RN RN 10:33:48 Radial Cocktail I.A. 1 Lm Basim for (Verapamil syringe Kassidy Avalos MD vasodilation 2mg/Nitro RN 400mcg/Heparin 1500units) Procedure Log Time Note 9:57:05 Informed consent obtained and on chart 9:57:31 Lm Yi RN sent for patient. Start room use. 9:57:33 Procedure Status Urgent Heart Cath (IP). 9:57:34 Time tracking: Regular hours (M-F 7:00 - 5:00) 9:57:41 Plan of Care:Hemodynamics will remain stable., Cardiac rhythm will remain stable., Comfort level will be maintained., Respiratory function will remain adequate., Patient/ family verbilizes understanding of procedure., Procedure tolerated without complication., Recovers from procedure without complications.. 9:57:47 H&P Date Dictated: 08/19/2019 New H&P dictated by physician.. 9:57:54 Patient allergic to No known allergies 9:58:27 Lab Result : BUN 12 mg/dl 9:58: Lab Result : Creatinine 0.9 mg/dl 9:58: Lab Result : eGFR AM 88.62849 ml/min 9:58:27 Lab Result : Hemoglobin 10.7 g/dl 9:58: Lab Result : Hematocrit 34.5 % 10:02:52 Arrival Date: 08/19/2019 12:00:00 AM 10:03:33 Insurance Payor : Medicaid 10:03:41 Patient Height : 68.11 inches 10:03:47 Patient Weight : 255.74 lbs 10:03:51 Admit Source: Other 10:08:10 Risk of Mortality: 2.3 10:08:16 Risk of blood transfusion: 5.4 10:08:20 Risk of QUANG: 3.2 10:08:27 Lab results completed and on chart. 10:09:32 ACC Patient presents with Stable Angina CCS Anginal Class 2--Slight limitation of ordinary activity. 10:10:44 ACCPatient has been prescribed/administered the following anti-anginal medication within the last 2 weeks: Beta Susy 10:12:08 Patient received from Med II to CCL 1 Alert and oriented. Tansferred to table in Supine position. 10:12:09 Warm blankets applied, and daniela hugger turned on for patient comfort. 10:12:09 Correct patient and procedure confirmed by team. 10:12:10 ECG and BP/O2 sat monitors applied to patient. 10:17:36 Baseline sample Acquired. 10:17:38 Baseline sample Acquired. 10:17:40 Vital chart was started 10:17:49 Rhythm: sinus tachycardia 10:17:50 Full Disclosure recording started 10:17:51 Pre-procedure instructions explained to patient. 10:17:51 Pre-op teaching completed and patient verbalized understanding. 10:17:52 Family in patients room. 10:17:53 Patient NPO since Midnight. 10:17:55 Is the patient allergic to Iodine/contrast media? No. 10:17:58 Patient diabetic? Yes. 10:17:59 If diabetic: On Metformin? No 10:18:00 Patient not . Patient has had tubal. 10:18:29 Previous problem with sedation/anesthesia? No ? 10:18:31 Snore? Yes 10:18:32 Sleep apnea? No 10:18:33 Deviated septum? No 10:20:10 Opens mouth fully? Yes 10:20:11 Sticks out tongue? Yes 10:20:13 Airway obstruction? No ? 10:20:17 Dentures? Yes OUT 10:20:20 Pre procedure: right dorsailis pedis pulse 2+ Normal; easily identifiable; not easily obliterated 10:20:23 Patient pain scale 0/10 ?. 10:20:29 IV patent on arrival in left antecubital with 0.9% NaCl at [facility]. 10:20:40 Right Radial & Right Groin area was prepped with chlora-prep and draped in sterile fashion 10:20:41 Alarms reviewed by R. N. 10:20:41 Sharps counted by scrub and verified by R.N. 10:20:44 Use device set Radial Dx or PCI 10:20:46 ACIST Syringe (30349) opened to sterile field. 10:20:47 Bag Decanter (2002S) opened to sterile field. 10:20:48 ACIST Hand Control (97952) opened to sterile field. 10:20:48 ACIST Manifold (74916) opened to sterile field. 10:20:49 Tegaderm 4 x 4 (1626W) opened to sterile field. 10:20:51 Medline Cath Pack ([id number]) opened to sterile field. 10:20:51 MBrace Wrist Support (019184076) opened to sterile field. 10:20:53 EMERALD Guide Wire (748-198) opened to sterile field. 10:20:54 SHEATH 6FR RAIN (0131322) opened to sterile field. 10:24:28 PT WAS PRELOADED ON PLAVIX YESTERDAY 10:25:13 0.9% NaCl 100 ml/hr I.V. was administered by Lm Yi RN; Per physician; Verbal order read back and verified. 10:25:23 Oxygen 2 l/min etCO2 Nasal cannula was administered by Lm Yi RN; for low 02 sats; Verbal order read back and verified. 10:25:35 Heparin Flush Bag (1000units/500ml NS) 2 bags added to field was administered by Lm Lorigan RN; used for procedure; Verbal order read back and verified. 10:25:47 Lidocaine 2% 20ml vial added to field was administered by Lm Yi RN; for local anesthetic; Verbal order read back and verified. 10::58 Radial Cocktail (Verapamil 2mg/Nitro 400mcg/Heparin 1500units) 1 syringe added to field was administered by Lm Yi RN; used for procedure; Verbal order read back and verified. 10:29:20 Stress Test: no; N/A NSTEMI 10::24 Physician arrived :: --------ALL STOP TIME OUT------ 10:: Final Timeout: patient, procedure, and site verified with staff and physician. All members of the team are in agreement. 10::28 Right Radial & Right Groin site verified by team. 10:29:39 Fire Safety Assessment: A--An alcohol-based skin anteseptic being used preoperatively., C--Open oxygen or nitrous oxide is being used., D--An ESU, laser, or fiber-optic light is being used. 10:29:46 Physical assessment completed. ASA score P 2 - A patient with mild systemic disease as per Basim Avalos MD. 10:29:52 2) 60-89 Mildly reduced kidney function, and other findings (as for stage 1) point to kidney disease. 10::58 Maximum allowable contrast dose (3.7 X eGFR X 0.75)244 ml. 10:30:04 Sedation plan: IV Moderate Sedation Medication:Versed, Fentanyl 10:30:38 Zero performed for pressure channel P1 10:31:02 Zero performed for pressure channel P1 10:32:09 Versed 2 mg I.V. was administered by Lm Yi RN; for sedation; Verbal order read back and verified. 10:32:10 Procedure started. 10:32:19 Fentanyl 100 mcg I.V. was administered by Lm Yi RN; for sedation; Verbal order read back and verified. 10:32:25 Local anesthetic to right radial artery with Lidocaine 2% by Basim Avalos MD.INITIAL ACCESS ONLY 10:33:21 A 6 Fr Short sheath was inserted into the Right Radial artery 10:33:39 A DIAGNOSTIC [place] 110cm 5 Fr catheter ([id number]) was advanced over the wire and used for Procedure. 10:33:48 Radial Cocktail (Verapamil 2mg/Nitro 400mcg/Heparin 1500units) 1 syringe I.A. was administered by Basim Avalos MD; for vasodilation; Verbal order read back and verified. 10:34:30 LV gram done using GARCIA 10:35:12 EF : 60 % 10:35:21 Injector settings: Ml/sec: 5, Volume: 15, 10:35:45 RCA angiography performed. 10:36:23 Catheter removed. 10:36:34 GUIDE 6FR XBLAD 3.5 catheter ([id number]) opened to sterile field. 10:36:54 6 Fr XBLAD3.5 guide catheter was inserted over the wire 10:37:26 LCA angiography performed. 10:37:33 Injector settings: Ml/sec: 3, Volume: 5, 10:38:20 Catheter removed. 10:38:27 TR BAND Standard ([id number]) opened to sterile field. 10:38:50 Sheath removed intact; hemostasis achieved with Mechanical Compression to the Right Radial artery. 10:38:53 Procedure ended.(Physican Out) 10:39:22 Contrast amount:Isovue 300 59ml. 10:39:26 Maximum allowable dose exceeded? No. 10:39:38 Fluoroscopy time 02.20 minutes. 10:39:57 Fluoroscopy dose: 564 mGy 10:39:57 Flurop Dose total: 564 10:40:08 Dose Area Product 62753 mGy/cm. 10:40:12 Sharps counted by scrub and verified by R.N. 10:40:18 [place] band inflated with 5cc of air. 10:40:20 Insertion/operative site no bleeding no hematoma. 10:40:31 Post right radial artery:stable 10:40:35 Post Procedure Pulses reassessed and unchanged 10:40:41 Post-procedure physical assessment completed. ASA score P 2 - A patient with mild systemic disease as per Basim Avalos MD. 10:40:45 Post procedure rhythm: unchanged. 10:40:50 Estimated blood loss: 5 ml 10:40:52 Post procedure instruction explained to patient.Patient verbalizes understanding. 10:40:54 Patient needs reinforcement of post procedure teaching. 10:41:21 Procedure and supply charges have been captured, reviewed, submitted and are correct. 10:42:23 Procedure Complication : No complications 10:42:27 Vital chart was stopped 10:42:30 [facility] Findings: mild to moderate CAD (<70%) 10:42:35 Operative report dictated upon procedure completion. 10:42:36 See physician's report for complete and final results. 10:43:07 Report given to [facility] II. 10:43:13 Patient transfered to [facility] with Bed. 10:43:31 Procedure ended. 10:43:31 Full Disclosure recording stopped 10:43:34 End room use (Document Last) Device Usage Item Name Manufacture Quantity Catalog Hospital Part Current Minima l Lot# / Number Charge Number Stock Stock Serial# Code ACIST Acist 1 38105 344653 847455 205605 20 Syringe Medical (90336) Systems Inc Bag Microtek 1 2001S 945305 55490 895617 5 Decanter Medical Inc. (2001S) ACIST Hand Acist 1 17910 368267 503948 013049 5 Control Medical (22651) Systems Inc ACIST Acist 1 34337 226173 165855 500285 5 Manifold Medical (09328) Systems Inc Tegaderm 4 3M 1 1626W 356744 742176 033356 5 x 4 (1626W) Medline Medline 1 [id number] 362044 32300 754652 5 Cath Pack ([id number]) MBrace Advanced 1 140-0250-00 693918 89655 229070 5 Wrist Vascular Support Dynamics ([id number]) EMERALD Cardinal 1 502-455 219545 977811 051162 5 Guide Wire Health (502-455) SHEATH 6FR Cardinal 1 0616053 439780 2408809 853684 5 Invisible Connect (5943199) DIAGNOSTIC Terumo 1 40-5013 882845 963624 152507 5 [place] 110cm 5 Fr catheter (638035) GUIDE 6FR Cardinal 1 [id number] 675389 399104 079487 10 XBLAD 3.5 Health catheter (23056051) TR BAND Terumo 1 [id number] 783386 115547 482262 40 Standard ([id number]) Signature Audit [place] Stage Time Signature Unsigned Intra-Procedure 08/19/2019 Jennifer 10:43:56 AM Tyron RT(R) (CV) Intra-Procedure 08/19/2019 Lm 10:44:25 AM Kassidy HOWARD Intra-Procedure 08/19/2019 Basim Avalos 10:44:58 AM [facility] [address] [place] [address]
[~2019-08-18 13:49] MED LIST changes: +PREDNISONE20 MG PO
--- NOTE | 2019-08-18 14:26 | NUR ---
PT LEAVING ED VIA STRETCHER FOR ORDERED CT SCAN.
[2019-08-18 14:44] LABS: BASOPHILS 0.2 % (0-2); EOSINOPHILS 0.9 % (0-7); HEMATOCRIT 34.5 % (36.0-48.0); HEMOGLOBIN 10.7 g/dL (12-16); IMMATURE GRANULOCYTES 0.3 % (0-5); MCH 25.2 pg (26.0-34.0); MCV 81.4 fL (80.0-100.0); MEAN PLATELET VOLUME 8.4 fL (7.4-10.4); MONOCYTES 6.6 % (2-11); PLATELET COUNT 372 10x3/uL (130-400); RBC 4.24 10x6/uL (4.00-5.40); RDW 14.7 % (11.5-14.5); WBC 11.8 10x3/uL (4.8-10.8)
[2019-08-18 14:53] LABS: INR 1.01 (0.85-1.17); PROTIME 12.8 SECONDS (11.6-15.0)
[2019-08-18 14:54] LABS: CALC OSMOLALITY 282 mosm/kg (275-300); CALCIUM 9.1 mg/dL (8.5-10.1); CARBON DIOXIDE 26.4 mmol/L (21.0-32.0); CHLORIDE - SERUM 102 mmol/L (98-107); CREATININE - SERUM 0.9 mg/dL (0.6-1.3); GLUCOSE 298 mg/dL (74-106); POTASSIUM - SERUM 3.8 mmol/L (3.5-5.1); SODIUM 136 mmol/L (136-145); UREA NITROGEN 12 mg/dL (7-18); eGFR NON AFRICAN AMERICAN 73 mL/min (90-120)
[2019-08-18 15:14] LABS: ALBUMIN 3.3 g/dL (3.4-5.0); ALKALINE PHOSPHATASE 114 U/L (46-116); ALT (SGPT) 16 U/L (10-68); BILIRUBIN - TOTAL 0.22 mg/dL (0.2-1.3); CKMB 0.4 U/L (0.0-3.6); CREATINE KINASE 61 UL (21-215); MAGNESIUM - SERUM 1.9 mg/dL (1.8-2.4); PROTEIN - SERUM 7.9 g/dL (6.4-8.2); THYROID STIMULATING HORMONE 1.81 uIU/mL (0.36-3.74)
[2019-08-18 15:16] LABS: TROPONIN-I 0.078 ng/mL (0.000-0.060)
--- NOTE | 2019-08-18 15:18 | NUR ---
TROPONIN 0.078 AND JASBIR AWARE.
--- NOTE | 2019-08-18 15:35 | NUR ---
URINE SAMPLE SENT TO LAB AT THIS TIME.
[2019-08-18 15:39] VITALS: BP 149/88
[2019-08-18 15:51] LABS: APPEARANCE CLEAR (CLEAR); COLOR YELLOW (YELLOW); NITRITE POSITIVE (NEGATIVE)
[2019-08-18 15:52] LABS: BILIRUBIN NEGATIVE (NEGATIVE); GLUCOSE 500 mg/dL (NEGATIVE); KETONE NEGATIVE (NEGATIVE); PROTEIN NEGATIVE (NEGATIVE); UROBILINOGEN NORMAL (NORMAL)
[2019-08-18 15:53] LABS: BACTERIA MANY /hpf (NEGATIVE); EPITHELIAL CELLS 0-5 /hpf (0-5); RED CELLS - URINE OCC /hpf (0-5)
[2019-08-18 16:36] LABS: HCG SERUM NEGATIVE (NEGATIVE)
--- NOTE | 2019-08-18 16:57 | NUR ---
PT CONTINUES TO DENY ANY CP, RESPIRATIONS EVEN AND UNLABORED. DR. HARMON AT THE BEDSIDE APPROX. 45MIN AGO TO SPEAK WITH PT. PT AWARE THAT SHE IS BEING ADMITTED TO [facility], AWAITING BED ASSIGNMENT. PT GIVEN AHA MEAL TRAY AT THIS TIME, PERMITTED TO HAVE PO INTAKE PER TREATING PROVIDER. PT AWARE THAT SHE IS TO BE NPO AT MIDNIGHT.
--- NOTE | 2019-08-18 17:27 | NUR ---
ROOM [id number] ASSIGNED AT 1710. ATTEMPTED TO CALL REPORT, NURSE NOT AVAILABLE. WILL CALL AGAIN SHORTLY.
[2019-08-18 17:36] LABS: CKMB 0.2 U/L (0.0-3.6); CREATINE KINASE 76 UL (21-215)
[2019-08-18] MEDS ORDERED: GLIPIZIDE10 MG PO (18:30)
--- NOTE | 2019-08-18 19:29 | NUR ---
RECIEVED BEDSIDE SHIFT REPORT. ALERT AND ORIENTED X4. UP AD DILLAN TO B/R. IV TO LEFT FA WITH ROCEPHIN INFUSING AT 100CC/HR. NO REDNESS OR SWELLING TO SITE. TELEMETRY IN PLACE. EDUCATED ON NPO STATUS AT NM. WILL COMPLETE ASSESSMENT.
[2019-08-18 20:48] VITALS: BP 130/73
[2019-08-18 20:49] VITALS: BP 136/79
[2019-08-18 23:29] LABS: CKMB 0.1 U/L (0.0-3.6); CREATINE KINASE 65 UL (21-215)
[2019-08-18 23:36] LABS: TROPONIN-I 0.066 ng/mL (0.000-0.060)
[2019-08-19 00:02] VITALS: BP 130/85
[2019-08-19 04:30] VITALS: BP 135/78
[2019-08-19 06:53] LABS: CKMB 0.2 U/L (0.0-3.6); CREATINE KINASE 58 UL (21-215)
[2019-08-19 06:55] LABS: TROPONIN-I 0.083 ng/mL (0.000-0.060)
--- NOTE | 2019-08-19 07:20 | NUR ---
PT ASKING FOR PAIN MEDICATION, INFORMED PT THAT SHE DOES NOT HAVE ANYTHING ORDERED FOR PAIN AT THIS TIME. WILL CALL DOCTOR AND GET SOMETHING ORDERED FOR PAIN. CALL LIGHT IN REACH, NAD NOTED, WILL CONTINUE PLAN OF CARE.
[2019-08-19 08:00] VITALS: BP 150/84
--- NOTE | 2019-08-19 08:36 | NUR ---
PAGED DR. HARMON, WAITING JANITOR BACK.
--- NOTE | 2019-08-19 09:10 | NUR ---
4MG OF MORPHINE GIVEN FOR PAIN LEVEL OF 10/10, ALSO GAVE AM MEDS WITH A SIP OF WATER. PT NPO FOR HEART CATH TODAY. PT DENIES ANY OTHER NEEDS AT THIS TIME. CALL LIGHT IN REACH, FAMILY AT BEDSIDE, NAD NOTED, WILL CONITNUE PLAN OF CARE.
--- NOTE | 2019-08-19 09:28 | NUR ---
PRE-OP MEDICATIONS GIVEN AT THIS TIME.
--- NOTE | 2019-08-19 10:18 | NUR ---
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
--- NOTE | 2019-08-19 11:04 | NUR ---
RECEIVED PT BACK TO ROOM 2115. PT STILL DROWSY BUT EASILY AROUSES TO VOICE. VITAL SIGNS STABLE, PLACED PT ON FREQUENT VITAL SIGNS. ZEPHYR BAND NOTED TO RT WRIST, NO SIGNS OF BLEEDING OR HEMATOMA. PT DENIES ANY NEEDS AT THIS TIME. STILL NPO FOR CTA. CALL LIGHT IN REACH, NAD NOTED, WILL CONTINUE TO MONITOR.
--- NOTE | 2019-08-19 11:22 | NUR ---
NO CHANGES TO RT WRIST FROM PREVIOUS ASSESSMENT. PT RESTING COMFORTABLY, ASKING ABOUT LUNCH, INFORMED PT THAT DR. HARMON HAS ORDERED A CTA OF CHEST AND SHE WILL HAVE TO REMAIN NPO UNTIL CTA IS DONE.
--- NOTE | 2019-08-19 11:41 | HP ---
PATIENT: MARCI DUENAS MEDICAL RECORD: [id number] ACCOUNT: [id number] LOCATION:[facility] D.2116 : 77 ADMISSION DATE: 08/18/19 PCP: JORDIN Jara HISTORY AND PHYSICAL EXAMINATION DIAGNOSES: 1. Non-Q-wave myocardial infarction. 2. Diabetes. 3. Family history of coronary artery disease. 4. Shortness of breath, dyspnea on exertion. 5. Hypertension. 6. Tachycardia. HISTORY OF PRESENT ILLNESS: Mrs. Duenas had the onset of chest pain last night. It radiates to her jaw down her arm associated with shortness of breath. She continues to have episodes of chest pain today. Her troponin is elevated. Her EKG is with nonspecific ST-T abnormalities. She is tachycardic with heart rates over 100. She is hypertensive with systolic blood pressures in the 140-180 range. She is on a blood pressure medication. She does not know the name of this. She has not had a history of ischemic heart disease or workup. She has a very strong family history for heart disease. PHYSICAL EXAMINATION: CONSTITUTIONAL/GENERAL APPEARANCE: Well nourished, well developed, appears stated age. EYES: Lids and conjunctivae noninjected. No discharge. No pallor. ENT: Lips within normal limit. No cyanosis. No pallor. NECK: Carotid arteries, bilateral normal upstroke. No bruits. No thrills. No jugular venous pressure or distention. CERVICAL LYMPH NODES: Nontender. Nonenlarged. THYROID: Not enlarged. No nodules. CARDIOVASCULAR: Precordial exam, nondisplaced. No heaves or pericardial thrills. Rate and rhythm, regular. Heart sounds, normal S1, normal S2. No S3, no gallop, no rub. Systolic murmur, not heard. Diastolic murmur, not heard. RESPIRATORY: Respiratory effort, unlabored. Normal curvature. No thoracic deformity. No chest wall tenderness. Percussion, resonant. Auscultation, clear. No wheezes, no rales, no rhonchi. ABDOMEN: Soft, nondistended, nontender. No abdominal pain, no vomiting and normal appetite. MUSCULOSKELETAL: No joint tenderness, normal gait, normal tone. SKIN: Warm and dry. OVERALL IMPRESSION: Non-Q-wave myocardial infarction. At this time, we will start her on a beta-anjelica, calcium channel anjelica, antiplatelet medications and proceed with coronary angiography in the a.m. if she still has symptomatology. TRANSINT:[id number] Voice Confirmation ID: [id number] DOCUMENT ID: [id number] HISTORY AND PHYSICAL [id number] MARCI DUENAS JEFFREY MD at 1141 CC: [id number] DICTATION DATE: 08/18/19 1601 SWATCH CHECKER: 08/18/19 [address] [place] [address]
--- NOTE | 2019-08-19 11:41 | OP ---
PATIENT NAME: MARCI DUENAS MEDICAL RECORD: [id number] :77 LOCATION:D.M2 D.2116 ADMISSION DATE: SURGEON: MIRIAM HARMON MD DATE OF OPERATION: 08/19/2019 PROCEDURES: 1. Left heart catheterization. 2. Selective coronary angiography. 3. Left ventriculogram. INDICATION: Elevated troponin, non-Q-wave myocardial infarction. DESCRIPTION OF PROCEDURE: After informed consent was obtained and after a detailed description of the risks, benefits as well as alternative therapies, the patient elected to proceed with angiogram and heart catheterization. The right radial area was prepped and draped in normal sterile fashion. Right radial artery was cannulated via modified Seldinger technique with placement of 6-[place] sheath. All catheters exchanged through this sheath. FINDINGS: Left ventriculogram was performed in standard 30-degree GARCIA view, reveals good cardiac wall motion, ejection fraction is 60%. SELECTIVE CORONARY ANGIOGRAPHY: Left main, less anterior descending, left circumflex, right coronary artery are all smooth-walled vessels with no angiographic evidence of coronary artery disease. OVERALL IMPRESSION: No angiographic evidence of coronary artery disease, normal left heart pressures, normal left ventricular systolic function. Elevated troponin is not secondary to myocardial infarction. Evaluate for possible pulmonary embolus. TRANSINT:[id number] Voice Confirmation ID: [id number] DOCUMENT ID: [id number] MIRIAM HARMON MD at 1141 CC: [id number] DICTATION DATE: 08/19/19 1041 SENIOR SECURITY ENGINEER: 08/19/19 [id number] [place] [address]
--- NOTE | 2019-08-19 11:41 | NUR ---
PT TO CT AT THIS TIME. VIA WHEELCHAIR.
[2019-08-19 12:00] VITALS: BP 121/72
[2019-08-19 14:05] VITALS: Ht 172.7 cm; Wt 118.4 kg
--- NOTE | 2019-08-19 14:43 | NUR ---
WENT TO GIVE PT SOME TYLENOL FOR HEADACHE, PT RESTING COMFORTABLY IN BED WITH EYES CLOSED, WILL CHECK BACK WITH PT.
[2019-08-19 16:00] VITALS: BP 124/62
--- NOTE | 2019-08-19 17:36 | NUR ---
ZEPHYR BAND COMPLETELY REMOVED, NO SIGNS OF BLEEDING OR HEMATOMA. PLACED 2X2 AND BANDADE OVER SITE. PT DENIES ANY NEEDS AT THIS TIME. CALL LIGHT IN REACH, NAD NOTED.
--- NOTE | 2019-08-19 19:13 | NUR ---
RECEIVED BEDSIDE REPORT. PATIENT IS ALERT AND ORIENTED, RESTING COMFORTABLY IN BED. RESPIRATIONS ARE EVEN AND UNLABORED. NO S/S OF DISTRESS. NO C/O PAIN. NEEDS MET. CALL LIGHT WITHIN REACH. WILL CPOC.
[2019-08-19 21:04] VITALS: BP 133/56
[2019-08-20 00:24] VITALS: BP 118/71
[2019-08-20 04:30] VITALS: BP 128/60
--- NOTE | 2019-08-20 08:33 | NUR ---
AM MEDS GIVEN AT THIS TIME. PT RESTING COMFORTABLY IN BED, DENIES ANY NEEDS AT THIS TIME. CALL LIGHT IN REACH, NAD NOTED, WILL CONTINUE TO MONITOR.
[2019-08-20] MEDS ORDERED: METOPROLOL TART50 MG PO (09:27)
--- NOTE | 2019-08-20 09:36 | NUR ---
UPON ADMIT, PATIENT HAS NOT HAD A FLU SHOT THIS YEAR. WHEN QUESTIONED, SHE STATES,"I DON'T TAKE THEM THEY MAKE ME SICK".
--- NOTE | 2019-08-20 09:42 | NUR ---
PATIENT REQUESTING NOTE TO RETURN TO WORK. I TALKED TO LEVON ELY APN AND SHE CAN RETURN ON SUNDAY TO WORK. COPY OF NOTE PLACED IN CHART.
--- NOTE | 2019-08-20 10:04 | NUR ---
PROVIDED VERBAL AND WRITTEN DISCHARGE TEACHING TO PT WHO VERBALIZED UNDERSTANDING REGARDING TEACHING. D/C RT FA IV WITH CATHETER TIP INTACT. HEART MONITOR REMOVED AND TAKEN TO [employer] BI ARCHITECT. PT WILL NOTIFY NURSE WHEN READY FOR WHEELCHAIR.
--- NOTE | 2019-08-20 10:58 | NUR ---
PT LEFT UNIT VIA WHEELCHAIR, WITH ALL BELONGINGS, NAD NOTED.
--- NOTE | 2019-08-20 11:43 | MORECARE ---
CASE MANAGEMENT DISCHARGE SUMMARY PATIENT: MARCI DUENAS UNIT: [id number] ADM DATE: 08/19/19 AGE: 43 : [birth year] SEX: F ROOM/BED: D.2116 AUTHOR: MARYAM EDUARDO PHYSICIAN: REFERRING PHYSICIAN: MIRIAM HARMON MD DATE OF SERVICE: 08/20/19 Discharge Plan Patient Name: MARCI DUENAS Facility: [facility]:[place] : 1975 Planned Disposition: Home Anticipated Discharge Date: 08/20/19 Discharge Date: 08/20/2019 Expected LOS: 1 Initial Reviewer: [email or web address] Initial Review Date: 08/20/2019 Generated: 08/20/19 12:43 pm Patient Name: MARCI DUENAS Page [phone] at 1143 All edits/amendments must be made on the electronic document DICTATION DATE: 08/20/19 1143 SACK REPAIRER: JARRET 08/20/19 1143 RPT#: [id number] DC DATE:08/20/19 STATUS: DIS IN [facility] [address] [place] [address] END OF REPORT
--- NOTE | 2019-08-20 11:51 | MORECARE ---
CASE MANAGEMENT DISCHARGE SUMMARY PATIENT: MARCI DUENAS UNIT: [id number] ADM DATE: 08/19/19 AGE: 43 : 77 SEX: F ROOM/BED: D.[facility] AUTHOR: MARYAM EDUARDO PHYSICIAN: REFERRING PHYSICIAN: MIRIAM HARMON MD DATE OF SERVICE: 08/20/19 Discharge Plan Patient Name: MARCI DUENAS Facility: [facility]:[place] : 1975 Planned Disposition: Home Anticipated Discharge Date: 08/20/19 Discharge Date: 08/20/2019 Expected LOS: 1 Initial Reviewer: [email or web address] Initial Review Date: 08/20/2019 Generated: 08/20/19 12:50 pm DCPIA - Discharge Planning Initial Assessment Updated by [email or web address]: Alfonso Landry on 08/20/19 11:46 am * Is the patient Alert and Oriented? Yes * How many steps to enter\exit or inside your home? * PCP [facility]ER, [facility] * Pharmacy [facility] IN [place] * Preadmission Environment Home with Family * ADLs Independent * Equipment None * Other Equipment NO MEDICAL EQUIPMENT PROVIDER PREFERENCE * List name and contact numbers for known caregivers / representatives who currently or will assist patient after discharge: DIANE ROBLEDO, FRIEND, * Verbal permission to speak to the caregivers and representatives has been obtained from the patient. N/A * Community resources currently utilized None * Please name any agencies selected above. NONE * Additional services required to return to the preadmission environment? No * Can the patient safely return to the preadmission environment? Yes * Has this patient been hospitalized within the prior 30 days at any hospital? No Last DP export: 08/20/19 10:43 Patient Name: MARCI DUENAS Page [id number] at 1151 All edits/amendments must be made on the electronic document DICTATION DATE: 08/20/19 1150 MARKETING PROJECT LEAD: JARRET 08/20/19 1150 RPT#: [id number] DC DATE:08/20/19 STATUS: DIS IN [address] [place] [address] END OF REPORT
--- NOTE | 2019-08-20 11:57 | MORECARE ---
CASE MANAGEMENT DISCHARGE SUMMARY PATIENT: MARCI DUENAS UNIT: [id number] ADM DATE: 08/19/19 AGE: 43 : 77 SEX: F ROOM/BED: D.0376 AUTHOR: ALESHA,DOC PHYSICIAN: REFERRING PHYSICIAN: MIRIAM HARMON MD DATE OF SERVICE: 08/20/19 Discharge Plan Patient Name: MARCI DUENAS Facility: [facility]:[place] : 1975 Planned Disposition: Home Anticipated Discharge Date: 08/20/19 Discharge Date: 08/20/2019 Expected LOS: 1 Initial Reviewer: [email or web address] Initial Review Date: 08/20/2019 Generated: 08/20/19 12:57 pm Comments DCP- Discharge Planning Updated by [email or web address]: Alfonso Landry on 08/20/19 10:[address] Patient Name: MARCI DUENAS Admission Status: ER Accout number: [id number] Admission Date: 08-19-2019 : 1975 Admission Diagnosis: Attending: EMPERATRIZ HARMON Current LOS: 1 Anticipated DC Date: 08-20-2019 Planned Disposition: Home Primary Insurance: MEDICAID [place] Discharge Planning Comments: CM MET WITH PT IN ROOM TO DISCUSS DISCHARGE PLANNING AND NEEDS. PT REPORTS LIVING AT HOME INDEPENDENTLY WITH HER THREE JUVENILE DAUGHTERS. PT HAS NO MEDICAL EQUIPMENT AND NO OUTSIDE SERVICES ASSISTING IN THE HOME. CM DISCUSSED AVAILABILITY OF HOME HEALTH, REHAB SERVICES AND MEDICAL EQUIPMENT. PT DENIES DISCHARGE NEEDS, REPORTS HER FRIEND DIANE WILL PICK HER UP FOR DISCHARGE HOME. MUSIC ORCHESTRATOR NURSE NOTIFIED. Warehouse Technician: Alfonso Landry DCPIA - Discharge Planning Initial Assessment Updated by [email or web address]: Alfonso Landry on 08/20/19 11:46 am * Is the patient Alert and Oriented? Yes * How many steps to enter\exit or inside your home? * PCP [facility] GREER, [facility] * Pharmacy [facility] IN [place] * Preadmission Environment Home with Family * ADLs Independent * Equipment None * Other Equipment NO MEDICAL EQUIPMENT PROVIDER PREFERENCE * List name and contact numbers for known caregivers / representatives who currently or will assist patient after discharge: DIANE ROBLEDO, FRIEND, * Verbal permission to speak to the caregivers and representatives has been obtained from the patient. N/A * Community resources currently utilized None * Please name any agencies selected above. NONE * Additional services required to return to the preadmission environment? No * Can the patient safely return to the preadmission environment? Yes * Has this patient been hospitalized within the prior 30 days at any hospital? No Last DP export: 08/20/19 10:51 Patient Name: MARCI DUENAS Page 75248 at 1157 All edits/amendments must be made on the electronic document DICTATION DATE: 08/20/19 1157 SWEET PICKLED FRUIT MAKER: JARRET 08/20/197 RPT#: [id number] DC DATE:08/20/19 STATUS: DIS IN [facility] [address] [place] [address] END OF REPORT
--- NOTE | 2019-08-27 14:07 | DS ---
PATIENT:MARCI DUENAS :[birth year] MEDICAL RECORD: [id number] DISCHARGE SUMMARY ADMISSION DATE: 08/19/19 DISCHARGE DATE: 08/20/19 DIAGNOSES: 1. Non-Q-wave myocardial infarction due to hypertension and tachycardia from demand ischemia. 2. Hypertension. HOSPITAL COURSE: Mrs. Duenas presents with chest pain, chest discomfort, rules in for a non-Q-wave myocardial infarction; however, cardiac catheterization reveals no significant coronary artery disease. CTA reveals no pulmonary embolus. This is all from her uncontrolled hypertension and tachycardia. She was started on Lopressor 100 mg b.i.d. symptomatology resolved. We will follow up with [facility] in 1 month. TRANSINT:[id number] Voice Confirmation ID: [id number] DOCUMENT ID: [id number] MIRIAM HARMON MD at 1407 CC: [id number] DICTATION DATE: 08/20/19 0846 ELECTRIC METER INSTALLER: 08/21/19 0109 DIS IN 08/20/19 [facility] [address] [place] [address]
== END 2019-08-20 11:12 | disposition home or self-care (01) | DRG 282 ==
LOC: D.M2 13:49 → D.ER 13:49 → D.M2 17:13 → D.ER 17:13 → EDSTATUS 17:34 → D.M2 08-19 15:36
PROVIDERS: Family Medicine; ADMIT Internal Medicine Interventional Cardiology; ATTEND Internal Medicine Interventional Cardiology
PROC: B2151ZZ Fluoroscopy of Left Heart using Low Osmolar Contrast (ICD-10-PCS; 2019-08-19)
PROC: 4A023N7 Measurement of Cardiac Sampling and Pressure, Left Heart, Percutaneous Approach (ICD-10-PCS; 2019-08-19)
PROC: B2111ZZ Fluoroscopy of Multiple Coronary Arteries using Low Osmolar Contrast (ICD-10-PCS; principal; 2019-08-19 12:00)
DX: I21.A1 Myocardial infarction type 2 (principal); E11.9 Type 2 diabetes mellitus without complications; I10 Essential (primary) hypertension; R00.0 Tachycardia, unspecified

== ENCOUNTER 2019-08-22 03:17 | Inpatient (IN) | payer MEDICAID ==
[~2019-08-22] VITALS: Ht 172.7 cm; Wt 116.1 kg
[~2019-08-22 03:17] MED LIST changes: +GLIPIZIDE10 MG PO
[2019-08-22 03:30] VITALS: BP 136/85
[2019-08-22] MEDS ORDERED: CYCLOBENZAPRINE10 MG PO (03:31)
[2019-08-22 04:03] LABS: APPEARANCE CLEAR (CLEAR); BILIRUBIN NEGATIVE (NEGATIVE); COLOR YELLOW (YELLOW); GLUCOSE 1000 mg/dL (NEGATIVE); KETONE NEGATIVE (NEGATIVE); NITRITE NEGATIVE (NEGATIVE); PROTEIN 2+ mg/dL (NEGATIVE); UROBILINOGEN NORMAL (NORMAL)
--- NOTE | 2019-08-22 04:10 | NUR ---
PT OBSERVED AMBULATING IN ROOM, NO ABNORMALITY IN GAIT NOTED. PT TOLERATED WELL. PT DENIES DIZZINESS AT THIS TIME. RESPIRATIONS APPEAR EVEN AND UNLABORED AT 16/MIN WITH NO SIGNS DISTRESS. DENIES FURTHER NEEDS AT THIS TIME. WILL CONTINUE TO MONITOR.
[2019-08-22 04:31] LABS: BASOPHILS 0.2 % (0-2); EOSINOPHILS 1.1 % (0-7); HEMATOCRIT 34.5 % (36.0-48.0); HEMOGLOBIN 10.8 g/dL (12-16); IMMATURE GRANULOCYTES 0.4 % (0-5); LYMPHOCYTES 20.3 % (15-50); MCH 25.5 pg (26.0-34.0); MCHC 31.3 g/dL (31.0-37.0); MCV 81.6 fL (80.0-100.0); MEAN PLATELET VOLUME 8.6 fL (7.4-10.4); MONOCYTES 5.6 % (2-11); NEUTROPHILS 72.4 % (40-80); PLATELET COUNT 404 10x3/uL (130-400); RBC 4.23 10x6/uL (4.00-5.40); RDW 14.9 % (11.5-14.5); WBC 13.3 10x3/uL (4.8-10.8)
[2019-08-22 04:46] LABS: CALC OSMOLALITY 281 mosm/kg (275-300); CARBON DIOXIDE 26.7 mmol/L (21.0-32.0); CHLORIDE - SERUM 97 mmol/L (98-107); GLUCOSE 342 mg/dL (74-106); POTASSIUM - SERUM 4.2 mmol/L (3.5-5.1); SODIUM 134 mmol/L (136-145); UREA NITROGEN 13 mg/dL (7-18); eGFR NON AFRICAN AMERICAN 64 mL/min (90-120)
[2019-08-22 04:56] LABS: KETONE - SERUM NEGATIVE (NEGATIVE)
[2019-08-22 05:07] LABS: ALBUMIN 3.4 g/dL (3.4-5.0); ALKALINE PHOSPHATASE 115 U/L (46-116); ALT (SGPT) 19 U/L (10-68); CKMB 0.6 U/L (0.0-3.6); CREATINE KINASE 78 UL (21-215); PROTEIN - SERUM 8.4 g/dL (6.4-8.2); THYROID STIMULATING HORMONE 1.47 uIU/mL (0.36-3.74)
[2019-08-22 05:11] LABS: TROPONIN-I 0.088 ng/mL (0.000-0.060)
--- NOTE | 2019-08-22 05:40 | NUR ---
PT RESTING WITH EYES CLOSED. EASY TO ARROUSE. SUPERVISOR ELECTRON TUBE PROCESSING AT BEDSIDE. NO SIGNS DISTRESS NOTED. PT DENIES NEEDS. WILL CONTINUE TO MONITOR.
[2019-08-22 06:36] VITALS: BP 143/80; BMI 39.0
[2019-08-22 08:47] VITALS: BP 156/77
[2019-08-22 09:24] LABS: ERYTHROCYTE SEDIMENTATION RATE 41 mm/hr (0-20)
[2019-08-22 12:06] VITALS: BP 139/80
--- NOTE | 2019-08-22 14:18 | NUR ---
I have reviewed this patient and I concur with the Shift Assessment completed by the Licensed Practical Nurse today this shift.
[2019-08-22 14:43] VITALS: Ht 172.7 cm; Wt 116.1 kg
--- NOTE | 2019-08-22 15:32 | NUR ---
DECLINES USE OF SCDS
[2019-08-22 16:05] VITALS: BP 129/72
[2019-08-22 18:55] LABS: INR 1.02 (0.85-1.17); PROTIME 12.9 SECONDS (11.6-15.0)
[2019-08-22 18:56] LABS: D-DIMER-QUANTITATIVE 0.65 ug/mLFEU (0.20-0.54)
--- NOTE | 2019-08-22 19:00 | NUR ---
REPORT RECEIVED, WILL CONTINUE POC. PATIENT IS AAOX4, UP AD DILLAN. FAMILY AT BEDSIDE. NO S/S OF DISTRESS OBSERVED, RR EVEN AND UNLABORED ON ROOM AIR. PATIENT DENIES NEEDS AT THIS TIME. CL IN REACH, BED LOCKED AND LOWERED. WILL CTM.
[2019-08-22 20:00] VITALS: BP 158/78
[2019-08-23] VITALS (7 sets, daily range): BP systolic 101–168; BP diastolic 52–92
--- NOTE | 2019-08-23 03:08 | NUR ---
I have reviewed this patient and I concur with the Shift Assessment completed by the Licensed Practical Nurse today this shift.
[2019-08-23 04:48] LABS: BASOPHILS 0.2 % (0-2); EOSINOPHILS 1.5 % (0-7); HEMATOCRIT 33.6 % (36.0-48.0); HEMOGLOBIN 10.4 g/dL (12-16); IMMATURE GRANULOCYTES 0.3 % (0-5); MCH 25.5 pg (26.0-34.0); MCV 82.4 fL (80.0-100.0); MEAN PLATELET VOLUME 8.5 fL (7.4-10.4); PLATELET COUNT 408 10x3/uL (130-400); RBC 4.08 10x6/uL (4.00-5.40); RDW 15.1 % (11.5-14.5); WBC 15.1 10x3/uL (4.8-10.8)
[2019-08-23 05:07] LABS: ANION GAP 12.7 mmol/L (8-16); BILIRUBIN - TOTAL 0.17 mg/dL (0.2-1.3); CALCIUM 8.8 mg/dL (8.5-10.1); CARBON DIOXIDE 26.3 mmol/L (21.0-32.0); CHOL - HDL RATIO 4.6 ratio (2.3-4.1); CREATININE - SERUM 0.9 mg/dL (0.6-1.3); LDL-HDL RATIO 3.2 ratio (1.5-3.5); MAGNESIUM - SERUM 1.8 mg/dL (1.8-2.4); PROTEIN - SERUM 7.2 g/dL (6.4-8.2)
--- NOTE | 2019-08-23 06:48 | NUR ---
REPORT RECEIVED. SHE IS ALERT AND AWAKE. IV OF NS AT 75CC/HR WITH SITE CLEAR. RESP EVEN WITHOUT LABOR. SHE DENIES ANY CURRENT NEEDS OR PAIN. CL IN REACH BED IN LOWEST POSITION AND LOCKED. SHE IS ENCOURAGED TO CALL FOR ASSIST BEFORE GETTING OUT OF BED. CAREPLAN REVIEW DONE WITH SAFETY PRECAUTIONS IN PLACE.
[2019-08-24 04:00] VITALS: BP 98/49
[2019-08-24 06:10] LABS: BASOPHILS 0.1 % (0-2); EOSINOPHILS 1.6 % (0-7); HEMATOCRIT 32.3 % (36.0-48.0); HEMOGLOBIN 9.8 g/dL (12-16); IMMATURE GRANULOCYTES 0.3 % (0-5); LYMPHOCYTES 25.2 % (15-50); MCH 25.2 pg (26.0-34.0); MCHC 30.3 g/dL (31.0-37.0); MEAN PLATELET VOLUME 8.9 fL (7.4-10.4); MONOCYTES 5.4 % (2-11); NEUTROPHILS 67.4 % (40-80); RBC 3.89 10x6/uL (4.00-5.40); RDW 15.4 % (11.5-14.5); WBC 13.5 10x3/uL (4.8-10.8)
[2019-08-24 06:11] LABS: PLATELET COUNT 497 10x3/uL (130-400)
[2019-08-24 06:17] LABS: ALBUMIN 2.9 g/dL (3.4-5.0); ANION GAP 14.7 mmol/L (8-16); BILIRUBIN - TOTAL 0.25 mg/dL (0.2-1.3); CALCIUM 9.1 mg/dL (8.5-10.1); CARBON DIOXIDE 23.7 mmol/L (21.0-32.0); CREATININE - SERUM 1.1 mg/dL (0.6-1.3); MAGNESIUM - SERUM 1.7 mg/dL (1.8-2.4); POTASSIUM - SERUM 4.4 mmol/L (3.5-5.1); PROTEIN - SERUM 7.2 g/dL (6.4-8.2)
[2019-08-24 08:00] VITALS: BP 88/52
[2019-08-24 12:00] VITALS: BP 119/75
[2019-08-24 13:08] LABS: ACLA - IGG AB <9 GPL U/mL (0-14); ACLA - IGM AB <9 MPL U/mL (0-12)
--- NOTE | 2019-08-24 14:38 | MORECARE ---
CASE MANAGEMENT DISCHARGE SUMMARY PATIENT: MARCI DUENAS UNIT: [id number] ADM DATE: 08/22/19 AGE: 43 : 77 SEX: F ROOM/BED: D.2134 AUTHOR: MARYAM EDUARDO PHYSICIAN: REFERRING PHYSICIAN: JUNE BEDOLLA MD DATE OF SERVICE: 08/24/19 Discharge Plan Patient Name: MARCI DUENAS Facility: [facility]:[place] : 1975 Planned Disposition: Home Anticipated Discharge Date: Discharge Date: Expected LOS: Initial Reviewer: [email or web address] Initial Review Date: 08/24/2019 Generated: 08/24/19 3:38 pm DCPIA - Discharge Planning Initial Assessment Updated by [email or web address]: Tamica Umana on 08/24/19 2:36 pm * Is the patient Alert and Oriented? Yes * PCP [facility] * Pharmacy [facility] IN [place] * Preadmission Environment Home with Family * ADLs Independent * Equipment None * List name and contact numbers for known caregivers / representatives who currently or will assist patient after discharge: SUSAN ZAPATA, * Community resources currently utilized None * Additional services required to return to the preadmission environment? No * Can the patient safely return to the preadmission environment? Yes * Has this patient been hospitalized within the prior 30 days at any hospital? Yes Patient Name: MARCI DUENAS Page 33426 at 1438 All edits/amendments must be made on the electronic document DICTATION DATE: 08/24/191437 AIRCRAFT MANAGER: JARRET 08/24/191437 RPT#: [id number] DC DATE: STATUS: ADM IN [place] [address] [place] [address] END OF REPORT
--- NOTE | 2019-08-24 14:49 | MORECARE ---
CASE MANAGEMENT DISCHARGE SUMMARY PATIENT: MARCI DUENAS UNIT: [id number] ADM DATE: 08/22/19 AGE: 43 : 77 SEX: F ROOM/BED: D.1756 AUTHOR: ALESHADOC PHYSICIAN: REFERRING PHYSICIAN: JUNE BEDOLLA MD DATE OF SERVICE: 08/24/19 Discharge Plan Patient Name: MARCI DUENAS Facility: [facility]:[place] : 1975 Planned Disposition: Home Anticipated Discharge Date: Discharge Date: Expected LOS: Initial Reviewer: [email or web address] Initial Review Date: 08/24/2019 Generated: 08/24/19 3:49 pm Comments DCP- Discharge Planning Updated by [id number]: Tamica Umana on 08/24/19 1:[address] Patient Name: MARCI DUENAS Admission Status: ER Accout number: [id number] Admission Date: 08-22-2019 : 1975 Admission Diagnosis: Attending: GRAEME, Current LOS: 2 Anticipated DC Date: Planned Disposition: Home Primary Insurance: MEDICAID [place] Discharge Planning Comments: CM met with patient at bedside after explaining CM role and obtaining verbal consent. CM discussed availability / needs of home health, REHAB and medical equipment. STATES IF QUALIFIES FOR HH WOULD LIKE [facility] FOR DIABETIC TEACHING. JENNIFER SIGNED. STATES NEEDS ANOTHER GLUCOMETER. CM WILL FOLLOW AND ASSIST. Accountant Systems: Tamica Umana DCPIA - Discharge Planning Initial Assessment Updated by [id number]: Tamica Umana on 08/24/19 2:36 pm * Is the patient Alert and Oriented? Yes * [facility] * Pharmacy [facility] IN [place] * Preadmission Environment Home with Family * ADLs Independent * Equipment None * List name and contact numbers for known caregivers / representatives who currently or will assist patient after discharge: BENNY, SUSAN, * Community resources currently utilized None * Additional services required to return to the preadmission environment? No * Can the patient safely return to the preadmission environment? Yes * Has this patient been hospitalized within the prior 30 days at any hospital? Yes Coverage Notice Reviewer: [id number] - Tamica Umana Notice Issued Date-Time: 08/24/2019 14:40 Notice Type: Patient Choice Letter Notice Delivered To: Patient Relationship to Patient: Machine Puller And Laster Name: Delivery Method: HAND - Hand Delivered Pao Days: Prior Verbal Notification: Recipient Understood Notice: Yes Recipient Signature: Yes Med Rec Note Co-signed by Attending: Coverage Notice Comment: JENNIFER ALANIZ Last DP export: 08/24/19 1:38 p Patient Name: MARCI DUENAS Page 34140 at 1449 All edits/amendments must be made on the electronic document DICTATION DATE: 08/24/19 144 CHART COMPUTER: JARRET 08/24/19 1449 RPT#: [id number] DC DATE: STATUS: ADM IN [facility] [address] [place] [address] END OF REPORT
[2019-08-24 16:00] VITALS: BP 123/74
[2019-08-24 20:00] VITALS: BP 146/89
[2019-08-25 00:23] VITALS: BP 126/77
[2019-08-25 04:00] VITALS: BP 104/64
[2019-08-25 06:34] LABS: BASOPHILS 0.3 % (0-2); EOSINOPHILS 1.5 % (0-7); HEMATOCRIT 32.8 % (36.0-48.0); HEMOGLOBIN 9.9 g/dL (12-16); IMMATURE GRANULOCYTES 0.3 % (0-5); LYMPHOCYTES 28.1 % (15-50); MCH 24.9 pg (26.0-34.0); MCHC 30.2 g/dL (31.0-37.0); MCV 82.6 fL (80.0-100.0); MEAN PLATELET VOLUME 8.7 fL (7.4-10.4); MONOCYTES 5.6 % (2-11); NEUTROPHILS 64.2 % (40-80); PLATELET COUNT 419 10x3/uL (130-400); RBC 3.97 10x6/uL (4.00-5.40); WBC 11.8 10x3/uL (4.8-10.8)
[2019-08-25 06:45] LABS: ALBUMIN 2.9 g/dL (3.4-5.0); ANION GAP 10.9 mmol/L (8-16); BILIRUBIN - TOTAL 0.24 mg/dL (0.2-1.3); CALCIUM 8.8 mg/dL (8.5-10.1); CARBON DIOXIDE 28.4 mmol/L (21.0-32.0); CREATININE - SERUM 0.9 mg/dL (0.6-1.3); MAGNESIUM - SERUM 1.7 mg/dL (1.8-2.4); POTASSIUM - SERUM 4.3 mmol/L (3.5-5.1); PROTEIN - SERUM 7.4 g/dL (6.4-8.2)
--- NOTE | 2019-08-25 07:00 | NUR ---
PT AWAKE, AXO. RR EVEN AND UNLABORED. REQUESTED SHOWER. WILL RECIEVE. DENIES FURTHER NEEDS OR PAIN AT THIS TIME. BED IN LOWEST POSITION. CALL LIGHT WITHIN REACH. WILL CONTINUE TO MONITOR.
[2019-08-25 09:32] VITALS: BP 128/73
[2019-08-25 13:09] VITALS: BP 121/76
--- NOTE | 2019-08-25 13:24 | NUR ---
I have reviewed this patient and I concur with the Shift Assessment completed by the Licensed Practical Nurse today this shift.
[2019-08-25 16:45] VITALS: BP 127/67
[2019-08-25 20:00] VITALS: BP 97/55
[2019-08-26] VITALS: BP 102/60
[2019-08-26 04:00] VITALS: BP 102/57
[2019-08-26 07:03] LABS: BASOPHILS 0.1 % (0-2); EOSINOPHILS 2.5 % (0-7); HEMOGLOBIN 9.6 g/dL (12-16); IMMATURE GRANULOCYTES 0.5 % (0-5); MCH 24.7 pg (26.0-34.0); MCV 82.3 fL (80.0-100.0); MEAN PLATELET VOLUME 8.8 fL (7.4-10.4); MONOCYTES 6.1 % (2-11); NEUTROPHILS 71.8 % (40-80); PLATELET COUNT 431 10x3/uL (130-400); RBC 3.89 10x6/uL (4.00-5.40); RDW 14.9 % (11.5-14.5); WBC 13.9 10x3/uL (4.8-10.8)
[2019-08-26 07:20] LABS: ANION GAP 13.6 mmol/L (8-16); BILIRUBIN - TOTAL 0.24 mg/dL (0.2-1.3); CALCIUM 8.9 mg/dL (8.5-10.1); CARBON DIOXIDE 25.6 mmol/L (21.0-32.0); CREATININE - SERUM 1.1 mg/dL (0.6-1.3); MAGNESIUM - SERUM 1.7 mg/dL (1.8-2.4); POTASSIUM - SERUM 4.2 mmol/L (3.5-5.1); PROTEIN - SERUM 7.5 g/dL (6.4-8.2)
--- NOTE | 2019-08-26 07:36 | NUR ---
PT RESTING. EYES CLOSED. RR EVEN AND UNLBAORED. NO DISTRESS NOTED. BED IN LOWEST POSITION. CALL LIGHT WITHIN REACH. WILL CONTINUE TO MONITOR.
[2019-08-26 08:41] VITALS: BP 101/60
--- NOTE | 2019-08-26 09:25 | NUR ---
PT C/O IV SITE HURTING. SITE TENDER AND SWOLLEN. IV D/C WITH CATHETER TIP INTACT. 20G IV RESITED TO RIGHT AC. DRESSING, CDI.
[2019-08-26 10:10] LABS: ANA REFLEX - DIRECT Negative (Negative)
[2019-08-26] MEDS ORDERED: ELIQUIS5 MG PO ×2 (11:02→11:03)
[2019-08-26] MEDS ORDERED: PROTONIX40 MG PO (11:03)
[2019-08-26] MEDS ORDERED: LIPITOR20 MG PO (11:04)
[2019-08-26] MEDS ORDERED: LISINOPRIL10 MG PO (11:04)
--- NOTE | 2019-08-26 11:05 | NUR ---
I have reviewed this patient and I concur with the Shift Assessment completed by the Licensed Practical Nurse today this shift.
[2019-08-26] MEDS ORDERED: LEVOFLOXACIN500 MG PO (11:06)
[2019-08-26 12:09] LABS: PROTEIN S - FREE 110 % (57-157); PROTEIN S - FUNCTIONAL 79 % (63-140); PROTEIN S - TOTAL 120 % (60-150)
[2019-08-26 13:00] VITALS: BP 106/60
--- NOTE | 2019-08-26 13:01 | NUR ---
UPON ADMIT PATIENT HAS NOT HAD A FLU SHOT. SHE IS GOING HOME ON [place], NO FLU SHOT GIVEN AT THIS TIME.
--- NOTE | 2019-08-26 13:03 | NUR ---
SCRIPT FOR GLUCOMETER MACHINE IS GIVEN TO PATIENT AND COPY PLACED IN CHART.
--- NOTE | 2019-08-26 13:40 | NUR ---
D/C INSTRUCTIONS REVIEWED WITH PT. VERBALIZED UNDERSTANDING AND NO FURTHER QUESTIONS AT THIS TIME. MONITOR REMOVED AND RETURNED TO CLINICAL STAFF ANESTHESIOLOGIST. IV D/C WITH CATHETER TIP INTACT. DRESSING PLACED OVER SITE, CDI.
--- NOTE | 2019-08-26 13:51 | MORECARE ---
CASE MANAGEMENT DISCHARGE SUMMARY PATIENT: MARCI DUENAS UNIT: [id number] ADM DATE: 08/22/19 AGE: 43 : 77 SEX: F ROOM/BED: D.5946 AUTHOR: ALESHADOC PHYSICIAN: REFERRING PHYSICIAN: JUNE BEDOLLA MD DATE OF SERVICE: 08/26/19 Discharge Plan Patient Name: MARCI DUENAS Facility: [facility]:[place] : 1975 Planned Disposition: Home Anticipated Discharge Date: 08/26/19 Discharge Date: Expected LOS: 4 Initial Reviewer: [email or web address] Initial Review Date: 08/24/2019 Generated: 08/26/19 2:51 pm Comments DCP- Discharge Planning Updated by [id number]: Tamica Umana on 08/24/19 1:[address] Patient Name: MARCI DUENAS Admission Status: ER Accout number: [id number] Admission Date: 08-22-2019 : 1975 Admission Diagnosis: Attending: GRAEME, Current LOS: 2 Anticipated DC Date: Planned Disposition: Home Primary Insurance: MEDICAID [place] Discharge Planning Comments: CM met with patient at bedside after explaining CM role and obtaining verbal consent. CM discussed availability / needs of home health, REHAB and medical equipment. STATES IF QUALIFIES FOR HH WOULD LIKE [facility] FOR DIABETIC TEACHING. JENNIFER SIGNED. STATES NEEDS ANOTHER GLUCOMETER. CM WILL FOLLOW AND ASSIST. Furnace Installer: Tamica Umana DCPIA - Discharge Planning Initial Assessment Updated by [id number]: Tamica Umana on 08/24/19 2:36 pm * Is the patient Alert and Oriented? Yes * PCP [facility] * Pharmacy [facility] IN [place] * Preadmission Environment Home with Family * ADLs Independent * Equipment None * List name and contact numbers for known caregivers / representatives who currently or will assist patient after discharge: SUSAN ZAPATA, * Community resources currently utilized None * Additional services required to return to the preadmission environment? No * Can the patient safely return to the preadmission environment? Yes * Has this patient been hospitalized within the prior 30 days at any hospital? Yes Coverage Notice Reviewer: [id number] - Tamica Umana Notice Issued Date-Time: 08/24/2019 14:40 Notice Type: Patient Choice Letter Notice Delivered To: Patient Relationship to Patient: Jewel Bearing Maker Name: Delivery Method: HAND - Hand Delivered Pao Days: Prior Verbal Notification: Recipient Understood Notice: Yes Recipient Signature: Yes Med Rec Note Co-signed by Attending: Coverage Notice Comment: JENNIFER ALANIZ Last DP export: 08/24/19 1:49 p Patient Name: MARCI DUENAS Page 02770 at 1351 All edits/amendments must be made on the electronic document DICTATION DATE: 08/26/19 1351 CRAFT MANAGER: JARRET 08/26/19 1351 RPT#: [id number] DC DATE: STATUS: ADM IN [facility] [address] [place] [address] END OF REPORT
--- NOTE | 2019-08-26 13:59 | MORECARE ---
CASE MANAGEMENT DISCHARGE SUMMARY PATIENT: MARCI DUENAS UNIT: [id number] ADM DATE: 08/22/19 AGE: 43 : 77 SEX: F ROOM/BED: D.1234 AUTHOR: ALESHADOC PHYSICIAN: REFERRING PHYSICIAN: JUNE BEDOLLA MD DATE OF SERVICE: 08/26/19 Discharge Plan Patient Name: MARCI DUENAS Facility: [facility]:[place] : 1975 Planned Disposition: Home Anticipated Discharge Date: 08/26/19 Discharge Date: Expected LOS: 4 Initial Reviewer: [email or web address] Initial Review Date: 08/24/2019 Generated: 08/26/19 2:58 pm Comments DCP- Discharge Planning Updated by [email or web address]: Alfonso Landry on 08/26/19 12:[address] Patient Name: MARCI DUENAS Encounter No: [id number] : 1975 Primary Insurance: MEDICAID [place] Anticipated DC Date: 08-26-2019 Planned Disposition: Home DCP follow-up note: CM MET WITH PT IN ROOM TO DISCUSS DISCHARGE NEEDS AND PLANNING. CM DISCUSSED AVAILABILITY OF HOME HEALTH, REHAB SERVICES AND MEDICAL EQUIPMENT. PT DENIES DISCHARGE NEEDS. PT STATES SHE WILL TALK TO HER PRIMARY CARE DOCTOR AT FOLLOW UP APPOINTMENT AND IF HER PRIMARY CARE THINKS SHE NEEDS HOME HEALTH FOR DIABETIC TEACHING, SHE WILL ARRANGE THEN. PT DENIES NEEDS FOR DISCHARGE HOME TODAY. NEW PRESCRIPTION FOR GLUCOMETER ON CHART TO PROVIDE TO PT FOR DISCHARGE HOME. FAMILY TO TRANSPORT HOME AT DISCHARGE. DOUGIE Mota DCP- Discharge Planning Updated by [id number]: Tamica Umana on 08/24/19 1:[address] Patient Name: MARCI DUENAS Admission Status: ER Accout number: [id number] Admission Date: 08-22-2019 : 1975 Admission Diagnosis: Attending: GRAEME, Current LOS: 2 Anticipated DC Date: Planned Disposition: Home Primary Insurance: MEDICAID [place] Discharge Planning Comments: CM met with patient at bedside after explaining CM role and obtaining verbal consent. CM discussed availability / needs of home health, REHAB and medical equipment. STATES IF QUALIFIES FOR HH WOULD LIKE [facility] FOR DIABETIC TEACHING. JENNIFER SIGNED. STATES NEEDS ANOTHER GLUCOMETER. CM WILL FOLLOW AND ASSIST. Solid Waste Analyst: Tamica Umana DCPIA - Discharge Planning Initial Assessment Updated by [id number]: Tamica Umana on 08/24/19 2:36 pm * Is the patient Alert and Oriented? Yes * [facility]CP [facility] * Pharmacy [facility] IN [place] * Preadmission Environment Home with Family * ADLs Independent * Equipment None * List name and contact numbers for known caregivers / representatives who currently or will assist patient after discharge: SUSAN ZAPATA, * Community resources currently utilized None * Additional services required to return to the preadmission environment? No * Can the patient safely return to the preadmission environment? Yes * Has this patient been hospitalized within the prior 30 days at any hospital? Yes Coverage Notice Reviewer: [id number] - Tamica Umana Notice Issued Date-Time: 08/24/2019 14:40 Notice Type: Patient Choice Letter Notice Delivered To: Patient Relationship to Patient: Shaft Tender Name: Delivery Method: HAND - Hand Delivered Pao Days: Prior Verbal Notification: Recipient Understood Notice: Yes Recipient Signature: Yes Med Rec Note Co-signed by Attending: Coverage Notice Comment: JENNIFER ALANIZ HH Last DP export: 08/26/19 12:51 p Patient Name: MARCI DUENAS Page 74694 at 1359 All edits/amendments must be made on the electronic document DICTATION DATE: 08/26/19 1358 DIGITAL RECRUITER: DM 08/26/19 1358 RPT#: [id number] DC DATE: STATUS: ADM IN [facility] [address] [place] [address] END OF REPORT
--- NOTE | 2019-08-26 14:38 | NUR ---
PT LEFT VIA WHEELCHAIR TO PERSONAL VEHICLE WITH ALL BELONGINGS.
--- NOTE | 2019-08-27 14:07 | EC ---
PATIENT:MARCI DUENAS DATE OF SERVICE: 08/22/19 SEX: F MEDICAL RECORD: [id number] DATE OF : [birth year] LOCATION:D.M2 D.213 AGE OF PATIENT: 43 ADMISSION DATE: 08/22/19 REFERRING PHYSICIAN: INTERPRETING PHYSICIAN: MIRIAM AVALOS MD ECHOCARDIOGRAM REPORT ECHO CHARGES 4 ECHO COMPLETE Date: 08/23/19 CLINICAL DIAGNOSIS: CVA/IA ECHOCARDIOGRAPHIC MEASUREMENTS (adult normal given) AC root (d.<3.7cm) 3.3 cm LV Septum d (<1.2 cm> 1.8 cm Valve Excursion 1.6 cm LV Septum (systole) 2.0 cm Left Atria (s.<4.0cm> 4.4 cm LVPW d(<1.2cm) 2.0 cm RV (d.<2.3cm) 3.2 cm LVPW (sytole) 2.2 cm LV diastole(<5.6CM) 3.8 cm MV E-F(>70mm/sec) cm LV systole 2.5 cm LVOT Diameter 2.1 cm MV exc.(>10mm) 2.0 cm Est.ejection fraction (50-75%) % DOPPLER: LVIT cm/sec A 53.0 cm/sec E 60.0 cm/sec LA cm/sec RVSP 27 mmHg LVOT 86 cm/sec AOP1/2T m/s Asc. Ao 102 cm/sec RVOT 74 cm/sec RA cm/sec PA 96 cm/sec AV Gradient Peak 4.13 mmHg AV Mean 2.08 mmHg AV Area 2.7 cm MV Gradient Peak 2.99 mmHg MV Mean 1.61 mmHg MV Area cm COMMENTS: Food Preparer: Koffi CALHOUN Lining Stitcher: 1 Dr. Avalos TAPE# PACS Pericardial Effusion N DATE OF SERVICE: 08/23/2019 Echocardiogram FINDINGS: 1. Left ventricular chamber size is within normal limits. Left ventricular systolic function is normal. Overall ejection fraction estimated 60%. Left ventricular hypertrophy is present, concentric with no evidence of outflow tract hypertrophy, but there is diastolic dysfunction from this degree of left ventricular hypertrophy. ECHOCARDIOGRAM REPORT [id number] MARCI DUENAS 2. Left atrium is enlarged at 4.4 cm. Right atrium and right ventricular chamber sizes are within normal limits. 3. Valvular structures have normal structure and motion. 4. Doppler interrogation reveals no significant valvular insufficiency or stenosis. Pulmonary systolic pressure is normal at 27 mmHg. 5. No evidence of pericardial effusion or left ventricular thrombus. TRANSINT:[id number] Voice Confirmation ID: [id number] DOCUMENT ID: [id number] MIRIAM AVALOS MD at 1407 CC: [id number] DICTATION DATE: 08/23/191749 WOOL BUYER: 08/23/192111 DIS IN 08/26/19 [place] [id number] [place] [id number]
--- NOTE | 2019-08-27 14:07 | CN ---
PATIENT NAME:MARCI DUENAS MEDICAL RECORD: [id number] : [birth year] LOCATION:D. D.2134 ADMIT DATE: 08/22/19 ACCOUNT: [id number] CONSULTING PHYSICIAN: MIRIAM HARMON MD REFERRING PHYSICIAN: JUNE BEDOLLA MD DATE OF CONSULTATION: 08/23/2019 CARDIOLOGY CONSULTATION DIAGNOSES: 1. Elevated troponin. 2. Chest pain. 3. Hypertension. 4. Tachycardia. 5. Cerebrovascular accident. HISTORY OF PRESENT ILLNESS: Mrs. Duenas was recently in the hospital with chest pain with a mildly elevated troponin. Cardiac catheterization was normal. CTA was normal. She was markedly hypertensive and tachycardic. She was started on Lopressor 100 mg b.i.d. She has had no further episodes of chest pain. Her tachycardia has resolved. Her blood pressure is under decent control. She presents after a fall, was found to have a mild CVA on MRI. Troponin has continued to be elevated. EKG is with no ST-T changes. PHYSICAL EXAMINATION: CONSTITUTIONAL/GENERAL APPEARANCE: Well nourished, well developed, appears stated age. EYES: Lids and conjunctivae noninjected. No discharge. No pallor. ENT: Lips within normal limit. No cyanosis. No pallor. NECK: Carotid arteries, bilateral normal upstroke. No bruits. No thrills. No jugular venous pressure or distention. CERVICAL LYMPH NODES: Nontender. Nonenlarged. THYROID: Not enlarged. No nodules. CARDIOVASCULAR: Precordial exam, nondisplaced. No heaves or pericardial thrills. Rate and rhythm, regular. Heart sounds, normal S1, normal S2. No S3, no gallop, no rub. Systolic murmur, not heard. Diastolic murmur, not heard. RESPIRATORY: Respiratory effort, unlabored. Normal curvature. No thoracic deformity. No chest wall tenderness. Percussion, resonant. Auscultation, clear. No wheezes, no rales, no rhonchi. ABDOMEN: Soft, nondistended, nontender. No abdominal pain, no vomiting and normal appetite. MUSCULOSKELETAL: No joint tenderness, normal gait, normal tone. SKIN: Warm and dry. OVERALL IMPRESSION: Elevated troponin despite good heart rate and blood pressure control. The troponin can be elevated in acute cerebrovascular accident, this is most likely the etiology of the continued elevation of troponin. At this time, no other cardiac workup or treatment is necessary. TRANSINT:[id number] Voice Confirmation ID: [id number] DOCUMENT ID: [id number] CONSULT REPORT [id number] MARCI DUENAS JEFFREY MD at 1407 CC: [id number] DICTATION DATE: 08/23/19900 DUST COLLECTOR ATTENDANT: 08/23/19928 DIS IN 08/26/19 [place] [id number]
--- NOTE | 2019-08-27 14:08 | EC ---
PATIENT:MARCI DUENAS DATE OF SERVICE: 08/22/19 SEX: F MEDICAL RECORD: [id number] DATE OF : [birth year] LOCATION:D.M2 D.213 AGE OF PATIENT: 43 ADMISSION DATE: 08/22/19 REFERRING PHYSICIAN: INTERPRETING PHYSICIAN: MIRIAM AVALOS MD ECHOCARDIOGRAM REPORT ECHO CHARGES 5 ECHO LIMITED Date: 08/25/19 CLINICAL DIAGNOSIS: EMBOLIC CVA ECHOCARDIOGRAPHIC MEASUREMENTS (adult normal given) AC root (d.<3.7cm) 0 cm LV Septum d (<1.2 cm> 0 cm Valve Excursion 0 cm LV Septum (systole) 0 cm Left Atria (s.<4.0cm> 0 cm LVPW d(<1.2cm) 0 cm RV (d.<2.3cm) 0 cm LVPW (sytole) 0 cm LV diastole(<5.6CM) 0 cm MV E-F(>70mm/sec) 0 cm LV systole 0 cm LVOT Diameter 0 cm MV exc.(>10mm) 0 cm Est.ejection fraction (50-75%) 0 % DOPPLER: LVIT 0 cm/sec A 0 cm/sec E 0 cm/sec LA 0 cm/sec RVSP 0 mmHg LVOT 0 cm/sec AOP1/2T 0 m/s Asc. Ao 0 cm/sec RVOT 0 cm/sec RA 0 cm/sec PA 0 cm/sec AV Gradient Peak 0 mmHg AV Mean 0 mmHg AV Area 0 cm MV Gradient Peak 0 mmHg MV Mean 0 mmHg MV Area 0 cm COMMENTS: LIMITED STUDY (2-D ONLY) WITH BUBBLE STUDY COMPLETE ECHO DONE ON 08/23/19 Hot Blast Worker: 1 PHIL KNOWLESOE Mill Beam Fitter: 1 Dr. Avalos TAPE# PACS Pericardial Effusion N DATE OF SERVICE: PROCEDURE: Limited echo with bubble study. FINDINGS: Left ventricular chamber size is within normal limits. Left ventricular systolic function is normal. Overall ejection fraction estimated at 55%. There is no evidence of ASD, VSD. Bubble study was normal with no wyos-bx-nfdoj or djumd-wz-xjgm shunt. ECHOCARDIOGRAM REPORT [id number] MARCI DUENAS TRANSINT:[id number] Voice Confirmation ID: [id number] DOCUMENT ID: [id number] MIRIAM AVALOS MD at 1408 CC: [id number] DICTATION DATE: 08/25/19 1523 COLORER: 08/26/19 0031 DIS IN 08/26/19 [facility] [address] [facility] [place] [address]
[2019-08-27 15:10] LABS: MITOCHONDRIAL ANTIBODY <20.0 Units (0.0-20.0)
[2019-08-28 03:07] LABS: ANTITHROMBIN III ACTIVITY 97 % (75-135); PLASMINOGEN ACTIVITY 127 % (70-150)
[2019-09-02 03:07] LABS: FACTOR II DNA ANALYSIS Negative (())
== END 2019-08-26 14:40 | disposition home or self-care (01) | DRG 64 ==
LOC: D.ER 03:17 → D.M2 05:51
PROVIDERS: Emergency Medicine; Internal Medicine Hematology & Oncology; ADMIT Family Medicine; ATTEND Family Medicine
DX: I63.40 Cerebral infarction due to embolism of unspecified cerebral artery (principal); I21.4 Non-ST elevation (NSTEMI) myocardial infarction; E11.65 Type 2 diabetes mellitus with hyperglycemia; W19.XXXA Unspecified fall, initial encounter; I11.0 Hypertensive heart disease with heart failure; I50.9 Heart failure, unspecified; D50.9 Iron deficiency anemia, unspecified; S00.83XA Contusion of other part of head, initial encounter; E66.01 Morbid (severe) obesity due to excess calories; Z68.39 Body mass index [BMI] 39.0-39.9, adult; S80.01XA Contusion of right knee, initial encounter; E78.5 Hyperlipidemia, unspecified

== ENCOUNTER 2019-08-28 00:28 | Observation (INO) | payer MEDICAID ==
[~2019-08-28] VITALS: Ht 172.7 cm; Wt 116.4 kg
[~2019-08-28 00:28] MED LIST changes: +CYCLOBENZAPRINE10 MG PO; +ELIQUIS5 MG PO; +LEVOFLOXACIN500 MG PO; +LIPITOR20 MG PO; +LISINOPRIL10 MG PO; +PROTONIX40 MG PO
[2019-08-28 01:08] LABS: BASOPHILS 0.2 % (0-2); EOSINOPHILS 1.8 % (0-7); HEMATOCRIT 30.8 % (36.0-48.0); HEMOGLOBIN 9.5 g/dL (12-16); IMMATURE GRANULOCYTES 0.4 % (0-5); LYMPHOCYTES 26.6 % (15-50); MCH 25.1 pg (26.0-34.0); MCHC 30.8 g/dL (31.0-37.0); MCV 81.5 fL (80.0-100.0); MEAN PLATELET VOLUME 8.7 fL (7.4-10.4); MONOCYTES 6.2 % (2-11); NEUTROPHILS 64.8 % (40-80); PLATELET COUNT 479 10x3/uL (130-400); RBC 3.78 10x6/uL (4.00-5.40); RDW 14.4 % (11.5-14.5); WBC 13.4 10x3/uL (4.8-10.8)
[2019-08-28 01:11] LABS: APTT 25.6 SECONDS (22.8-39.4); INR 1.33 (0.85-1.17); PROTIME 15.9 SECONDS (11.6-15.0)
[2019-08-28 01:14] LABS: CALC OSMOLALITY 275 mosm/kg (275-300); CALCIUM 8.5 mg/dL (8.5-10.1); CARBON DIOXIDE 29.2 mmol/L (21.0-32.0); CHLORIDE - SERUM 97 mmol/L (98-107); CREATININE - SERUM 1.1 mg/dL (0.6-1.3); GLUCOSE 265 mg/dL (74-106); POTASSIUM - SERUM 3.8 mmol/L (3.5-5.1); SODIUM 132 mmol/L (136-145); UREA NITROGEN 18 mg/dL (7-18); eGFR NON AFRICAN AMERICAN 58 mL/min (90-120)
[2019-08-28 01:20] VITALS: BP 84/55
[2019-08-28 01:34] LABS: ALBUMIN 3.1 g/dL (3.4-5.0); ALKALINE PHOSPHATASE 111 U/L (46-116); ALT (SGPT) 19 U/L (10-68); BILIRUBIN - TOTAL 0.16 mg/dL (0.2-1.3); CKMB 0.2 U/L (0.0-3.6); CREATINE KINASE 75 UL (21-215); MAGNESIUM - SERUM 1.7 mg/dL (1.8-2.4); PROTEIN - SERUM 7.9 g/dL (6.4-8.2); TROPONIN-I 0.041 ng/mL (0.000-0.060)
[2019-08-28 02:20] VITALS: BP 102/57
[2019-08-28 03:10] VITALS: BP 104/57; BMI 39.0
--- NOTE | 2019-08-28 03:27 | NUR ---
PT ARRIVED BY WHEELCHAIR TO FLOOR. NO SIGNS OF DISTRESS. ASSESSMENT COMPLETE. PT DENIES ANY PAIN OR NEEDS AT THIS TIME. CL IN REACH, BED IN LOWEST POSITION. FAMILY AT BEDSIDE.
--- NOTE | 2019-08-28 05:31 | NUR ---
I have reviewed this patient and I concur with the Shift Assessment completed by the Licensed Practical Nurse today this shift.
--- NOTE | 2019-08-28 07:12 | NUR ---
ALERT AND ORIENTED. TELEMERTY SHOWS SR. RIGHT AC SL, PATENT.UP AB DILLAN. DENIES ANY NEEDS.WEAKNESS TO LEFT SIDE. RIGHT AC SL. WILL MONITOR. CALL LIGHT IN REACH WITH SR UP
[2019-08-28 08:00] VITALS: BP 112/64
[2019-08-28 08:29] VITALS: Ht 172.7 cm; Wt 116.4 kg
[2019-08-28] MEDS ORDERED: METOPROLOL TART50 MG PO ×2 (08:43→08:44)
--- NOTE | 2019-08-28 08:51 | NUR ---
UPON ADMIT PATIENT HAS NOT HAD A FLU SHOT. WHEN ASKED, SHE REFUSED. STATES,"IT MAKES ME SICK".
--- NOTE | 2019-08-28 09:26 | NUR ---
I have reviewed this patient and I concur with the Shift Assessment completed by the Licensed Practical Nurse today this shift.
[2019-08-28 10:17] LABS: APPEARANCE SL CLDY (CLEAR); BILIRUBIN NEGATIVE (NEGATIVE); COLOR YELLOW (YELLOW); GLUCOSE 250 mg/dL (NEGATIVE); KETONE NEGATIVE (NEGATIVE); NITRITE NEGATIVE (NEGATIVE); PROTEIN 1+ mg/dL (NEGATIVE); SPECIFIC GRAVITY 1.025 (1.005-1.020); UROBILINOGEN NORMAL (NORMAL)
[2019-08-28 10:19] LABS: BACTERIA FEW /hpf (NEGATIVE); EPITHELIAL CELLS 0-5 /hpf (0-5); RED CELLS - URINE 25-50 /hpf (0-5); WHITE CELLS - URINE 0-5 /hpf (NEGATIVE); YEAST <1+ /hpf (NONE SEEN)
--- NOTE | 2019-08-28 11:17 | NUR ---
D DIMER IS WNL 0.47. PAGE INTO CLAIRE THOMAS APN TO LET HER KNOW. AWAITING NEW ORDERS.
--- NOTE | 2019-08-28 11:18 | NUR ---
CLAIRE THOMAS APN TO STATE SHE WILL DISCHARGE PATIENT SOON.
[2019-08-28 12:00] VITALS: BP 99/54
--- NOTE | 2019-08-28 12:49 | CN ---
PATIENT NAME:MARCI MCKINLEY MEDICAL RECORD: [id number] : 77 LOCATION:D. D.2121 ADMIT DATE: 08/28/19 ACCOUNT: [id number] CONSULTING PHYSICIAN: MIRIAM HARMON MD REFERRING PHYSICIAN: PEEWEE WILDE MD DATE OF CONSULTATION: 08/28/2019 DIAGNOSES: 1. Chest pain. 2. Anxiety. 3. Hypertension. 4. Hyperlipidemia. 5. Obesity. 6. Tachycardia. 7. Palpitations. 8. GERD. 9. Noninsulin-dependent diabetes. HISTORY OF PRESENT ILLNESS: Mrs. Mckinley presents with chest pain. She had a recent presentation with chest pain where she had an increased troponin. Cardiac catheterization was absolutely normal with smooth-walled vessels. She had a CT angio of her chest. This was as well normal. She then was discharged. Treatment of her high blood pressure with metoprolol and lisinopril. She continued to have tachycardia with heart rates over 100. She does feel palpitations. She has a history of GERD. She is not sure if her chest pain that she is having is from her acid reflux and anxiety disorder or from a cardiac nature. She was admitted a second time after the initial admission with the cardiac catheterization. At that time, she was told she had a CVA. This was after a fall. CVA was diagnosed on MRI and she was placed on Eliquis. She is quite anxious about her medical condition and thinks that her chest pain last night was in relation to a panic/anxiety attack she had. Her troponin is normal. Her EKG is with no changes. She is still quite tachycardic with heart rates in the 100 range and over, systolic blood pressures in the 120 range. PHYSICAL EXAMINATION: CONSTITUTIONAL/GENERAL APPEARANCE: Well nourished, well developed, appears stated age. EYES: Lids and conjunctivae noninjected. No discharge. No pallor. ENT: Lips within normal limit. No cyanosis. No pallor. NECK: Carotid arteries, bilateral normal upstroke. No bruits. No thrills. No jugular venous pressure or distention. CERVICAL LYMPH NODES: Nontender. Nonenlarged. THYROID: Not enlarged. No nodules. CARDIOVASCULAR: Precordial exam, nondisplaced. No heaves or pericardial thrills. Rate and rhythm, regular. Heart sounds, normal S1, normal S2. No S3, no gallop, no rub. Systolic murmur, not heard. Diastolic murmur, not heard. RESPIRATORY: Respiratory effort, unlabored. Normal curvature. No thoracic deformity. No chest wall tenderness. Percussion, resonant. Auscultation, clear. No wheezes, no rales, no rhonchi. ABDOMEN: Soft, nondistended, nontender. No abdominal pain, no vomiting and normal appetite. MUSCULOSKELETAL: No joint tenderness, normal gait, normal tone. SKIN: Warm and dry. OVERALL IMPRESSION: Chest pain. At this time with a normal cardiac CONSULT REPORT [id number] MARCI MCKINLEY catheterization, normal troponin, and normal echocardiogram. No other cardiac workup or treatment is necessary. I would like to control her tachycardia and palpitations more. We will discontinue the lisinopril. Increase the Lopressor to 150 mg b.i.d. Hopefully, this will give better heart rate and blood pressure control. At this time, no other cardiac workup or treatment will be necessary. TRANSINT:[id number] Voice Confirmation ID: [id number] DOCUMENT ID: [id number] MIRIAM HARMON MD at 1249 CC: [id number] DICTATION DATE: 08/28/19 0843 SAW SETTER: 08/28/19 1014 ADM IN [place] [address] [place] [address]
--- NOTE | 2019-08-28 14:13 | NUR ---
TO PRIVATE CAR PER WHEELCHAIR.
--- NOTE | 2019-08-29 08:13 | MORECARE ---
CASE MANAGEMENT DISCHARGE SUMMARY PATIENT: MARCI DUENAS UNIT: [id number] ADM DATE: 08/28/19 AGE: 43 : [birth year] SEX: F ROOM/BED: D.[facility] [place] AUTHOR: MARYAM EDUARDO PHYSICIAN: REFERRING PHYSICIAN: PEEWEE WILDE MD DATE OF SERVICE: 08/29/19 Discharge Plan Patient Name: MARCI DUENAS Facility: [facility]:[place] : 1975 Planned Disposition: Home Anticipated Discharge Date: 08/28/19 Discharge Date: 08/28/2019 Expected LOS: 1 Initial Reviewer: [email or web address] Initial Review Date: 08/29/2019 Generated: 08/29/19 9:12 am Patient Name: MARCI DUENAS Page [phone] at 0813 All edits/amendments must be made on the electronic document DICTATION DATE: 08/29/19811 GAMING MANAGER: JARRET 08/29/19811 RPT#: [id number] DC DATE:08/28/19 STATUS: DIS IN [facility] [address] [place] [address] END OF REPORT
[2019-08-31 11:10] LABS: LUPUS - INTERPRETATION Comment: (()); LUPUS - THROMBIN TIME 15.7 sec (0.0-23.0); LUPUS - dRVVT 51.5 sec (0.0-47.0); PTT-LA 28.7 sec (0.0-51.9)
== END 2019-08-28 14:14 | disposition home or self-care (01) ==
LOC: D.ER 00:28 → D.M2 01:51 → OBSVTIME 01:51 → D.M2 01:51
PROVIDERS: Family Medicine; ADMIT Internal Medicine Nephrology; ATTEND Internal Medicine Nephrology
DX: F41.9 Anxiety disorder, unspecified (principal); D50.9 Iron deficiency anemia, unspecified; E87.1 Hypo-osmolality and hyponatremia; E11.9 Type 2 diabetes mellitus without complications; I10 Essential (primary) hypertension

== ENCOUNTER 2019-10-05 21:53 | Inpatient (IN) | payer MEDICAID ==
[~2019-10-05] VITALS: Ht 172.7 cm; Wt 116.1 kg
[2019-10-05 22:40] LABS: BASOPHILS 0.2 % (0-2); EOSINOPHILS 0.5 % (0-7); HEMATOCRIT 35.7 % (36.0-48.0); HEMOGLOBIN 11.1 g/dL (12-16); IMMATURE GRANULOCYTES 0.3 % (0-5); LYMPHOCYTES 34.4 % (15-50); MCH 24.3 pg (26.0-34.0); MCHC 31.1 g/dL (31.0-37.0); MCV 78.3 fL (80.0-100.0); MEAN PLATELET VOLUME 8.7 fL (7.4-10.4); MONOCYTES 5.3 % (2-11); NEUTROPHILS 59.3 % (40-80); PLATELET COUNT 569 10x3/uL (130-400); RBC 4.56 10x6/uL (4.00-5.40); RDW 14.4 % (11.5-14.5); WBC 10.5 10x3/uL (4.8-10.8)
[2019-10-05 22:46] LABS: CALC OSMOLALITY 282 mosm/kg (275-300); CALCIUM 9.3 mg/dL (8.5-10.1); CARBON DIOXIDE 25.9 mmol/L (21.0-32.0); CHLORIDE - SERUM 100 mmol/L (98-107); CREATININE - SERUM 1.1 mg/dL (0.6-1.3); GLUCOSE 350 mg/dL (74-106); POTASSIUM - SERUM 3.8 mmol/L (3.5-5.1); SODIUM 135 mmol/L (136-145); UREA NITROGEN 9 mg/dL (7-18); eGFR NON AFRICAN AMERICAN 58 mL/min (90-120)
[2019-10-05 22:50] LABS: INR 1.09 (0.85-1.17); PROTIME 13.6 SECONDS (11.6-15.0)
[2019-10-05 23:08] LABS: ALBUMIN 3.5 g/dL (3.4-5.0); ALKALINE PHOSPHATASE 147 U/L (46-116); ALT (SGPT) 29 U/L (10-68); BILIRUBIN - TOTAL 0.36 mg/dL (0.2-1.3); CKMB 0.6 U/L (0.0-3.6); CREATINE KINASE 96 UL (21-215); PRO BNP 121 pg/mL (0-125); PROTEIN - SERUM 8.4 g/dL (6.4-8.2)
[2019-10-05 23:10] LABS: TROPONIN-I 0.103 ng/mL (0.000-0.060)
[2019-10-05] MEDS ORDERED: CYCLOBENZAPRINE10 MG PO (23:49)
[2019-10-05] MEDS ORDERED: ELIQUIS5 MG PO (23:51)
--- NOTE | 2019-10-05 23:55 | NUR ---
RECEIVED FROM ER, PT IS A&O X4, HISTORY AND MEDS COMPLETE, 20G.IV-LAC-NS@125, DENIES ANY NEEDS, BED IS LOW, SRX2, CALL LIGHT IN REACH, WILL CONTINUE PLAN OF CARE
[2019-10-06 01:24] VITALS: BMI 39.0
--- NOTE | 2019-10-06 01:35 | NUR ---
ADMISSION ASSESSMENT AND HISTORY COMPLETED. HOME MEDS REVIEWED. TELEMETRY IN PLACE. PLAN OF CARE INITIATED. WILL BE NPO UNTIL SEEN BY RADIOLOGIC TECH IN AM.
[2019-10-06 04:30] VITALS: BP 134/70
[2019-10-06 05:35] LABS: BASOPHILS 0.2 % (0-2); EOSINOPHILS 0.9 % (0-7); HEMATOCRIT 33.2 % (36.0-48.0); HEMOGLOBIN 10.5 g/dL (12-16); IMMATURE GRANULOCYTES 0.2 % (0-5); LYMPHOCYTES 31.3 % (15-50); MCH 24.6 pg (26.0-34.0); MCHC 31.6 g/dL (31.0-37.0); MCV 77.9 fL (80.0-100.0); MEAN PLATELET VOLUME 8.8 fL (7.4-10.4); MONOCYTES 4.4 % (2-11); PLATELET COUNT 532 10x3/uL (130-400); RBC 4.26 10x6/uL (4.00-5.40); RDW 14.4 % (11.5-14.5); WBC 12.8 10x3/uL (4.8-10.8)
[2019-10-06 06:31] LABS: ALKALINE PHOSPHATASE 128 U/L (46-116); ALT (SGPT) 24 U/L (10-68); BILIRUBIN - TOTAL 0.29 mg/dL (0.2-1.3); CALC OSMOLALITY 284 mosm/kg (275-300); CALCIUM 8.9 mg/dL (8.5-10.1); CARBON DIOXIDE 26.8 mmol/L (21.0-32.0); CHLORIDE - SERUM 102 mmol/L (98-107); CKMB 0.4 U/L (0.0-3.6); CREATINE KINASE 71 UL (21-215); CREATININE - SERUM 0.9 mg/dL (0.6-1.3); GLUCOSE 314 mg/dL (74-106); POTASSIUM - SERUM 3.6 mmol/L (3.5-5.1); PROTEIN - SERUM 7.2 g/dL (6.4-8.2); SODIUM 137 mmol/L (136-145); UREA NITROGEN 11 mg/dL (7-18); eGFR NON AFRICAN AMERICAN 73 mL/min (90-120)
[2019-10-06 06:45] LABS: TROPONIN-I 0.106 ng/mL (0.000-0.060)
[2019-10-06 09:20] VITALS: BP 154/76
--- NOTE | 2019-10-06 10:00 | NUR ---
URINE SPECIMEN COLLECTED AND TAKEN TO LAB. WILL MONITOR.
[2019-10-06 10:39] LABS: UDS - AMPHET NEGATIVE QUAL (NEGATIVE); UDS - BARB NEGATIVE QUAL (NEGATIVE); UDS - BENZO NEGATIVE QUAL (NEGATIVE); UDS - COCAINE NEGATIVE QUAL (NEGATIVE); UDS - OPIATE NEGATIVE QUAL (NEGATIVE); UDS - PCP NEGATIVE QUAL (NEGATIVE); UDS - THC NEGATIVE QUAL (NEGATIVE)
[2019-10-06 10:51] LABS: APPEARANCE TURBID (CLEAR); BILIRUBIN NEGATIVE (NEGATIVE); COLOR RED (YELLOW); GLUCOSE 1000 mg/dL (NEGATIVE); KETONE NEGATIVE (NEGATIVE); NITRITE NEGATIVE (NEGATIVE); PROTEIN 2+ mg/dL (NEGATIVE); RED CELLS - URINE >50 /hpf (0-5); UROBILINOGEN NORMAL (NORMAL); WHITE CELLS - URINE OCC /hpf (NEGATIVE)
[2019-10-06 10:52] LABS: BACTERIA MANY /hpf (NEGATIVE); EPITHELIAL CELLS 0-5 /hpf (0-5); MUCUS <1+ /lpf (NONE SEEN)
[2019-10-06 11:29] LABS: CKMB 0.4 U/L (0.0-3.6); CREATINE KINASE 69 UL (21-215)
[2019-10-06 11:30] LABS: GLUCOSE 364 mg/dL (74-106)
[2019-10-06 11:31] LABS: TROPONIN-I 0.107 ng/mL (0.000-0.060)
[2019-10-06 13:01] VITALS: BP 171/101
[2019-10-06 13:41] VITALS: BP 171/101
[2019-10-06 15:02] LABS: % SATURATION 9 % (15-55); IRON 30 ug/dl (35-150); TOTAL IRON BIND CAPACITY 330 ug/dl (260-445); UNSAT IRON BIND CAPACITY 300 ug/dl (150-375)
[2019-10-06 15:11] VITALS: Ht 172.7 cm; Wt 116.1 kg
[2019-10-06 16:46] LABS: CKMB 0.4 U/L (0.0-3.6); CREATINE KINASE 76 UL (21-215)
[2019-10-06 16:47] LABS: TROPONIN-I 0.105 ng/mL (0.000-0.060)
[2019-10-06 17:20] VITALS: BP 147/76
--- NOTE | 2019-10-06 20:00 | NUR ---
RECEIVED BEDSIDE REPORT. PATIENT IS ALERT AND ORIENTED, TALKING ON PHONE. RESPIRATIONS ARE EVEN AND UNLABORED. NO S/S OF DISTRESS. NO C/OPAION. CALL LIGHT WITHIN REACH. DENIES NEEDS. WILL CPOC.
[2019-10-06 20:30] VITALS: BP 157/91
[2019-10-07] VITALS: BP 137/82
[2019-10-07 06:13] LABS: BASOPHILS 0.2 % (0-2); HEMATOCRIT 31.8 % (36.0-48.0); HEMOGLOBIN 9.6 g/dL (12-16); IMMATURE GRANULOCYTES 0.3 % (0-5); LYMPHOCYTES 32.7 % (15-50); MCH 23.7 pg (26.0-34.0); MCHC 30.2 g/dL (31.0-37.0); MCV 78.5 fL (80.0-100.0); MEAN PLATELET VOLUME 8.6 fL (7.4-10.4); MONOCYTES 6.4 % (2-11); NEUTROPHILS 59.4 % (40-80); PLATELET COUNT 512 10x3/uL (130-400); RBC 4.05 10x6/uL (4.00-5.40); RDW 14.5 % (11.5-14.5); WBC 13.3 10x3/uL (4.8-10.8)
[2019-10-07 06:29] LABS: CALCIUM 9.1 mg/dL (8.5-10.1); CARBON DIOXIDE 25.2 mmol/L (21.0-32.0); CREATININE - SERUM 0.9 mg/dL (0.6-1.3)
[2019-10-07 06:45] LABS: POTASSIUM - SERUM 4.2 mmol/L (3.5-5.1)
[2019-10-07] MEDS ORDERED: PLAVIX75 MG PO (09:43)
[2019-10-07 10:09] VITALS: BP 174/81
--- NOTE | 2019-10-07 11:44 | NUR ---
IV AND TELEMETRY DCD. DC PLANS GIVEN.. UNDERSTANDING VOICED. ESCORTED TO CAR BY W/C.
--- NOTE | 2019-10-07 13:07 | CN ---
PATIENT NAME:MARCI DUENAS MEDICAL RECORD: [id number] : [birth year] LOCATION:[facility] D.2118 ADMIT DATE: 10/06/19 ACCOUNT: [id number] CONSULTING PHYSICIAN: EDMAR BUTLER MD REFERRING PHYSICIAN: PEEWEE WILDE MD DATE OF CONSULTATION: 10/06/2019 HISTORY OF PRESENT ILLNESS: A 43-year-old female with a history of coronary artery disease. She underwent angiography after a non-ST elevation myocardial infarction and found to have normal coronaries. In the interim, had a cerebrovascular accident confirmed via MRI, admitted with chest pain and pressure, subsequently had elevated cardiac enzymes. I reviewed films from previous, these are entirely normal. From a atherosclerotic standpoint, we are asked to see her concerning her cardiovascular status. PAST MEDICAL HISTORY: Includes: 1. History of hypertension. 2. Hyperlipidemia. 3. Diabetes mellitus. 4. Cerebrovascular disease. ALLERGIES: None known. MEDICATIONS: Flexeril 10 p.o. t.i.d., Eliquis 5 mg p.o. b.i.d., Lipitor 20 every day, metoprolol 100 b.i.d., aspirin 81 every day, Protonix 40 every day, Glucotrol 10 b.i.d. SOCIAL HISTORY: Nonsmoker, nondrinker. No set exercise program. Easily able to take care of her ADLs. REVIEW OF SYSTEMS: The patient reports easy bruising but reports no swollen glands. The patient reports no fever, no night sweats, no significant weight gain, no significant weight loss. No significant exercise tolerance. The patient reports no dry eyes, no irritation, no vision change. Patient reports no difficulty hearing and no ear pain. Patient reports no frequent nose bleeds or nose and sinus problems. Patient reports on arm pain on exertion. No shortness of breath while lying down. No history of heart murmur. Patient reports no cough, no wheezing or coughing up blood. Patient reports no abdominal pain, no vomiting. Normal appetite. No diarrhea and not vomiting blood. No nausea and no constipation. Patient reports no incontinence. No difficulty urinating. No hematuria. No increased frequency. Patient reports no muscle aches. No weakness, no arthralgias, no back pain. No swelling of the extremities. Patient reports no abnormal mole, no jaundice, no rashes. Reports no loss of consciousness. No weakness and no numbness. No seizures, dizziness, or headaches. The patient reports no depression, no sleep disturbance, feeling safe in a relationship and no alcohol abuse. Patient reports on fatigue. Reports no runny nose or sinus pressure. No itching, no hives, and no frequent sneezing. PHYSICAL EXAMINATION: GENERAL: No acute distress, appears stated age. VITAL SIGNS: Blood pressure 134/76, pulse 86 and regular. HEENT: Normocephalic, atraumatic. NECK: No bruits noted. HEART: Regular, S4 gallop is noted. I-II/ systolic ejection murmur. CONSULT REPORT [id number] MARCI DUENAS LUNGS: Good air excursion. ABDOMEN: Soft, nontender. EXTREMITIES: Pulses 2+ with no edema. NEUROLOGIC: Grossly intact. DIAGNOSTIC DATA: EKG is normal. IMPRESSION: At this point, given a history of nausea, myocardial infarction, and CVA at this point in time, we will plan on dual antiplatelet as well as DOAC. Add Plavix to her medical regime. Further recommendations based on clinical course. TRANSINT:[id number] Voice Confirmation ID: [id number] DOCUMENT ID: [id number] EDMAR BUTLER MD at 1307 CC: [id number] DICTATION DATE: 10/06/19932 INSTALLER TECHNICIAN: 10/06/19 1244 DIS IN 10/07/19 [place] [address] [place] [address]
--- NOTE | 2019-10-07 16:57 | MORECARE ---
CASE MANAGEMENT DISCHARGE SUMMARY PATIENT: MARCI DUENAS UNIT: [id number] ADM DATE: 10/06/19 AGE: 43 : 77 SEX: F ROOM/BED: D.1756 AUTHOR: ALESHA,DOC PHYSICIAN: REFERRING PHYSICIAN: PEEWEE WILDE MD DATE OF SERVICE: 10/07/19 Discharge Plan Patient Name: MARCI DUENAS Facility: [facility]:[place] : 1975 Planned Disposition: Home Anticipated Discharge Date: 10/07/19 Discharge Date: 10/07/2019 Expected LOS: 1 Initial Reviewer: [email or web address] Initial Review Date: 10/07/2019 Generated: 10/07/19 5:56 pm Comments DCP- Discharge Planning Updated by [email or web address]: Alfonso Landry on 10/07/19 3:[address] Patient Name: MARCI DUENAS Admission Status: ER Accout number: [id number] Admission Date: 10-06-2019 : 1975 Admission Diagnosis: Attending: PEEWEE WILDE Current LOS: 1 Anticipated DC Date: 10-07-2019 Planned Disposition: Home Primary Insurance: MEDICAID [place] Discharge Planning Comments: CM MET WITH PT IN ROOM TO DISCUSS DISCHARGE PLANNING AND NEEDS. PT REPORTS LIVING AT HOME INDEPENDENTLY WITH HER FAMILY. PT HAS GLUCOMETER WITH NO MEDICAL EQUIPMENT PROVIDER PREFERENCE AND NO OUTSIDE SERVICES ASSISTING IN THE HOME. CM DISCUSSED AVAILABILITY OF HOME HEALTH, REHAB SERVICES AND MEDICAL EQUIPMENT. PT DENIES DISCHARGE NEEDS, REPORTS FAMILY WILL PICK HER UP FOR DISCHARGE HOME. FINAL ARMATURE TESTER NURSE NOTIFIED. Garment Turner: Alfonso Landry DCPIA - Discharge Planning Initial Assessment Updated by [email or web address]: Alfonso Landry on 10/07/19 4:53 pm * Is the patient Alert and Oriented? Yes * How many steps to enter\exit or inside your home? NONE * PCP [facility] [place] * Pharmacy [facility] IN [place] * Preadmission Environment Home with Family * ADLs Independent * Equipment None * Other Equipment NO MEDICAL EQUIPMENT PROVIDER PREFERENCE * List name and contact numbers for known caregivers / representatives who currently or will assist patient after discharge: BENNY, SUSAN, [phone] * Verbal permission to speak to the caregivers and representatives has been obtained from the patient. N/A * Community resources currently utilized None * Please name any agencies selected above. NONE * Additional services required to return to the preadmission environment? No * Can the patient safely return to the preadmission environment? Yes * Has this patient been hospitalized within the prior 30 days at any hospital? No Patient Name: MARCI DUENAS Page [phone] at 1657 All edits/amendments must be made on the electronic document DICTATION DATE: 10/07/191655 MENTAL HEALTH PROFESSIONAL: JARRET 10/07/191655 RPT#: [id number] DC DATE:10/07/19 STATUS: DIS IN [facility] [address] [place] [address] END OF REPORT
== END 2019-10-07 11:44 | disposition home or self-care (01) | DRG 313 ==
LOC: D.ER 21:53 → OBSVTIME 22:38 → D.M2 22:38
PROVIDERS: Family Medicine; ADMIT Internal Medicine Nephrology; ATTEND Internal Medicine Nephrology
DX: R07.9 Chest pain, unspecified (principal); E11.9 Type 2 diabetes mellitus without complications; I10 Essential (primary) hypertension; F41.9 Anxiety disorder, unspecified; E66.9 Obesity, unspecified; I20.9 Angina pectoris, unspecified; Z68.39 Body mass index [BMI] 39.0-39.9, adult; I25.2 Old myocardial infarction; Z86.73 Personal history of transient ischemic attack (TIA), and cerebral infarction without residual deficits

== ENCOUNTER 2019-11-20 12:42 | Inpatient (IN) | payer MEDICAID ==
[~2019-11-20] VITALS: Ht 172.7 cm; Wt 118.7 kg
--- NOTE | ~2019-11-20 | CN ---
PATIENT NAME:MARCI MCKINLEY MEDICAL RECORD: [id number] : 77 LOCATION:D.M2 D.2117 ADMIT DATE: 11/20/19 ACCOUNT: [id number] CONSULTING PHYSICIAN: MIRIAM HARMON MD REFERRING PHYSICIAN: PEEWEE WILDE MD DATE OF CONSULTATION: 11/20/2019 DIAGNOSES: 1. Non-Q-wave myocardial infarction. 2. Hypertension. 3. Family history of coronary artery disease. 4. Diabetes. 5. Obesity. 6. Anemia. HISTORY OF PRESENT ILLNESS: Mrs. Mckinley presents with chest pressure, shortness of breath and generalized fatigue, found to have a hemoglobin of 6.6, unknown etiology of the anemia. Troponin is also elevated. She has been having episodes of chest pain, chest pressure, chest tightness for the past 2 weeks as well as significant shortness of breath. She has no history of ischemic heart disease. She is a longstanding diabetic as well has hypertension and a family history of coronary artery disease. She is a nonsmoker. PHYSICAL EXAMINATION: CONSTITUTIONAL/GENERAL APPEARANCE: Well nourished, well developed, appears stated age. EYES: Lids and conjunctivae noninjected. No discharge. No pallor. ENT: Lips within normal limit. No cyanosis. No pallor. NECK: Carotid arteries, bilateral normal upstroke. No bruits. No thrills. No jugular venous pressure or distention. CERVICAL LYMPH NODES: Nontender. Nonenlarged. THYROID: Not enlarged. No nodules. CARDIOVASCULAR: Precordial exam, nondisplaced. No heaves or pericardial thrills. Rate and rhythm, regular. Heart sounds, normal S1, normal S2. No S3, no gallop, no rub. Systolic murmur, not heard. Diastolic murmur, not heard. RESPIRATORY: Respiratory effort, unlabored. Normal curvature. No thoracic deformity. No chest wall tenderness. Percussion, resonant. Auscultation, clear. No wheezes, no rales, no rhonchi. ABDOMEN: Soft, nondistended, nontender. No abdominal pain, no vomiting and normal appetite. MUSCULOSKELETAL: No joint tenderness, normal gait, normal tone. SKIN: Warm and dry. OVERALL IMPRESSION: Non-Q-wave myocardial infarction. Her EKG is with no acute ST-T abnormalities. We will get an echocardiogram, transfused 2 units of blood, proceed with coronary angiography. Further care depends upon the findings of the angiography. TRANSINT:[id number] Voice Confirmation ID: [id number] DOCUMENT ID: [id number] CONSULT REPORT [id number] MARCI MCKINLEY JEFFREY MD CC: [id number] DICTATION DATE: 11/21/19835 AUDIO VISUAL MANAGER: 11/21/19 1146 ADM IN [facility] [address] [place] [address]
--- NOTE | ~2019-11-20 | OP ---
PATIENT NAME: MARCI DUENAS MEDICAL RECORD: [id number] :77 LOCATION:D.M2 D.2116 ADMISSION DATE:11/20/19 SURGEON: MIRIAM HARMON MD DATE OF OPERATION: 11/21/2019 DESCRIPTION OF THE PROCEDURE: After informed consent was obtained and after detailed explanation of risks, benefits as well as alternative therapies, the patient elected to proceed with angiogram and heart catheterization. The right radial area was prepped and draped in normal sterile fashion. Right radial artery was cannulated via modified Seldinger technique with placement of 5-Martiniquais sheath. All catheters exchanged through this sheath. FINDINGS: The left ventriculogram was performed in standard 30-degree GARCIA view, reveals good cardiac wall motion, ejection fraction estimated 60%. SELECTIVE CORONARY ANGIOGRAPHY: Left main, left anterior descending, left circumflex, right coronary are all smooth-walled vessels with no angiographic evidence of coronary artery disease. OVERALL IMPRESSION: 1. No angiographic evidence of coronary artery disease. 2. Normal left heart pressures. 3. Normal left ventricular systolic function. Myocardial infarction is secondary to the anemia. Treat underlying cause of anemia. TRANSINT:[id number] Voice Confirmation ID: [id number] DOCUMENT ID: [id number] MIRIAM HARMON MD CC: [id number] DICTATION DATE: 11/21/19 1441 COMMUNICATIONS ASSISTANT: 11/21/192156 ADM IN [place] [address] [place] [address]
--- NOTE | ~2019-11-20 | HEMODYNAMI ---
PATIENT:MARCI DUENAS MEDICAL RECORD: [id number] : 77 [facility]# [id number] ADMISSION DATE: 11/20/19 Generatedon:11/21/201914:43 Patient name: MARCI DUENAS Patient #: [id number] SSN: [id number] : 1975 Date of study: 11/21/2019 Page: Of Hemodynamic Procedure Report Patient Data Patient Demographics Procedure consent was obtained First Name: MARCI Gender: Female Last Name: HENRIQUE : 1975 [facility] Initial: E Age: 43 year(s) Patient #: [id number] Race: Black SSN: [id number] Additional ID: [id number] Contact details [address]: [address] [place] [address] State: [place] [facility] Zip code: [address] Past Medical History Allergies: No known allergies Admission Admission Data Admission Date: 11/20/2019 Admission Time: 16:12 Arrival Date: 11/21/2019 Arrival Time: 0:00 Admit Source: Other Insurance Payor: Medicaid Room #: D.2117 Height (in.): 68 BSA: 2.22 (m2) Height (cm.): 172.72 BMI: 37.02 (kg/m2) Weight (lbs.): 243.5 Weight (kg.): 110.45 Lab Results Lab Result Date: 11/21/2019 Lab Result Time: 0:00 Biochemistry Name Units Result Min Max BUN mg/dl 12 --(-*--)-- 7 18 Creatinine mg/dl 1 --(--*-)-- 0.6 1.3 eGFR ml/min 64.04267 *-(----)-- 90 120 NONAFRICAN CBC Name Units Result Min Max Hematocrit % 24.4 *-(----)-- 42 54 Hemoglobin g/dl 7.3 *-(----)-- 13.5 17.5 Procedure Procedure Types Cath Procedure Diagnostic Procedure [facility] w/Coronaries Procedure Description Procedure Date Procedure Date: 11/21/2019 Procedure Start Time: 14:32 Procedure End Time: 14:39 Procedure Staff Name Function Basim Avalos MD Performing Physician Lázaro Moise RT Monitor Nancy Perez RT Scrub Lm Yi RN Nurse Procedure Data Cath Procedure Fluoroscopy Diagnostic fluoroscopy Total fluoroscopy Time: 1 time: 1 min min Diagnostic fluoroscopy Total fluoroscopy dose: dose: 162.88 mGy 162.88 mGy Contrast Material Contrast Material Type Amount (ml) Isovue 370 0 Isovue 300 45 Entry Location Entry Primary Successful Side Size Upsize Upsize Entry Closure Succes sful Closure Location (Fr) 1 (Fr) 2 (Fr) Remarks Device Remarks Femoral Right 5 Fr Exoseal artery Diagnostic catheters Device Type Used For End Catheter Placement MULTIPACK Pigtail 5 Fr LV Angiography catheter MULTIPACK JL 4.0 5Fr Left Coronary catheter Angiography MULTIPACK 3DRC 5Fr Right Coronary catheter Angiography Procedure Complications No complications Procedure Medications Medication Administration Route Dosage 0.9% NaCl I.V. 100 ml/hr Oxygen etCO2 Nasal cannula 2 l/min Heparin Flush Bag added to field 2 bags (1000units/500ml NS) Lidocaine 2% added to field 20 Versed I.V. 2 mg Fentanyl I.V. 100 mcg Versed I.V. 2 mg Hemodynamics Rest BSA: 2.22 (m2) HGB: 7.3 (g/dl) O2 Consumption: Estimated: 231.72 (ml/min) O2 Con sumption indexed: Estimated:104.38 (ml/min/m) Heart Rate: 79 (bpm) Snapshots Pre Cath Intra NCS Post Cath Vital Signs Time Heart Resp SPO2 etCO2 NIBP (mmHg) Rhythm Pain Sedation Rate (ipm) (%) (mmHg) Status Level (bpm) 14:18:01 76 17 100 34.5 152/92(111) NSR 0 (11) 10(A) , No pain 14:22:15 79 21 100 30.8 141/91(117) NSR 0 (11) 10(A) , No pain 14:27:26 80 24 100 36 150/88(115) NSR 0 (11) 10(A) , No pain 14:31:46 79 16 100 34.6 158/86(124) NSR 0 (11) 10(A) , No pain 14:36:00 84 21 98 36 149/85(104) NSR 0 (11) 9(A) , No pain 14:40:23 86 24 99 35.3 147/83(106) NSR 0 (11) 9(A) , No pain Medications Time Medication Route Dose Verified Delivered Reason Notes Eff ectiveness by by 14:16:15 0.9% NaCl I.V. 100 Lm Lm Per ml/hr Kassidy Yi physician RN RN 14:16:25 Oxygen etCO2 2 Lm Lm for low 02 Nasal l/min Lorigan Lorigan sats cannula RN RN 14:16:36 Heparin Flush added 2 Lm Lm used for Bag to bags Lorigan Lorigan procedure (1000units/500ml field RN RN NS) 14:16:51 Lidocaine 2% added 20ml Lm Lm for local to vial Lorigan Lorigan anesthetic field RN RN 14:31:11 Versed I.V. 2 mg Lm Lm for Lorigan Lorigan sedation RN RN 14:32:14 Fentanyl I.V. 100 Lm Lm for mcg Lorigan Lorigan sedation RN RN 14:33:16 Versed I.V. 2 mg Lm Lm for Lorigan Lorigan sedation RN photograph finisher Log Time Note 13:51:05 Diagnostic Cath Status : Urgent 13:51:11 Procedure Status Urgent Heart Cath (IP). 13:51:14 Lázaro Levyit RT(R) sent for patient. Start room use. 13:51:15 Time tracking: Regular hours (M-F 7:00 - 5:00) 13:51:20 Plan of Care:Hemodynamics will remain stable., Cardiac rhythm will remain stable., Comfort level will be maintained., Respiratory function will remain adequate., Patient/ family verbilizes understanding of procedure., Procedure tolerated without complication., Recovers from procedure without complications.. 13:51:30 Lab results completed and on chart. 13:52:04 Lab Result : BUN 12 mg/dl 13:52:04 Lab Result : eGFR NONAFRICAN 64.74338 ml/min 13:52:04 Lab Result : Creatinine 1 mg/dl 13:52:04 Lab Result : Hemoglobin 7.3 g/dl 13:52:04 Lab Result : Hematocrit 24.4 % 13:52:48 2) 60-89 Mildly reduced kidney function, and other findings (as for stage 1) point to kidney disease. 13:52:51 Maximum allowable contrast dose (3.7 X eGFR X 0.75)178 ml. 13:52:59 Admit Source: Other 13:53:42 Informed consent obtained and on chart 13:53:59 Arrival Date: 11/21/2019 12:00:00 AM 13:54:03 Patient Height : 68 inches 13:54:07 Patient Weight : 243.5 lbs 13:54:16 Insurance Payor : Medicaid 13:56:39 H&P Date Dictated: 11/20/2019 Within 30 days and on chart.. 13:56:40 Pre-procedure instructions explained to patient. 13:56:41 Pre-op teaching completed and patient verbalized understanding. 13:56:47 ----Pre-sedation anethsthesia assessment.---- 13:56:52 Previous problem with sedation/anesthesia? No ? 13:56:54 Snore? Yes 13:57:36 Sleep apnea? No 13:57:38 Deviated septum? No 13:57:39 Opens mouth fully? Yes 13:57:41 Sticks out tongue? Yes 13:57:58 Airway obstruction? No ? 13:58:03 Patient not . Patient has had tubal. 13:58:07 If diabetic: On Metformin? Yes 13:58:12 If diabetic: On Metformin? No 13:58:14 Patient diabetic? Yes. 13:58:17 Is the patient allergic to Iodine/contrast media? No. 13:58:19 Was the patient premedicated? Yes 13:58:45 Patient allergic to No known allergies 14:02:12 Risk of Mortality: 0.5 14:02:16 Risk of blood transfusion: 43.3 14:02:20 Risk of QUANG: 5.0 14:02:22 Alarms reviewed by R. N. 14:02:22 Sharps counted by scrub and verified by R.N. 14:16:15 0.9% NaCl 100 ml/hr I.V. was administered by Lm Yi RN; Per physician; Verbal order read back and verified. 14:16:25 Oxygen 2 l/min etCO2 Nasal cannula was administered by Lm Yi RN; for low 02 sats; Verbal order read back and verified. 14:16:36 Heparin Flush Bag (1000units/500ml NS) 2 bags added to field was administered by Lm Yi RN; used for procedure; Verbal order read back and verified. 14:16:51 Lidocaine 2% 20ml vial added to field was administered by Lm Yi RN; for local anesthetic; Verbal order read back and verified. 14:16:55 Vital chart was started 14:17:52 Patient received from PCU to CCL 3 Alert and oriented. Tansferred to table in Supine position. 14:17:54 Warm blankets applied, and daniela hugger turned on for patient comfort. 14:17:54 Correct patient and procedure confirmed by team. 14:17:54 ECG and BP/O2 sat monitors applied to patient. 14:17:55 Baseline sample Acquired. 14:17:57 Rhythm: sinus rhythm 14:17:59 Full Disclosure recording started 14:18:02 Family unavailable. 14:18:12 Pre procedure: right dorsailis pedis pulse 1+ Palpable, but thready & weak; easily obliterated 14:18:19 Modified Lloyd's test Ulnar > 7 seconds. 14:18:22 Patient pain scale 0/10 ?. 14:18:31 IV patent on arrival in left forearm with 0.9% NaCl at [facility]. 14:18:40 Right groin area was prepped with chlora-prep and draped in sterile fashion 14:30:56 Physician arrived 14:30:57 --------ALL STOP TIME OUT------ 14:30:57 Final Timeout: patient, procedure, and site verified with staff and physician. All members of the team are in agreement. 14:30:59 Right groin site verified by team. 14:31:04 Fire Safety Assessment: A--An alcohol-based skin anteseptic being used preoperatively., C--Open oxygen or nitrous oxide is being used., D--An ESU, laser, or fiber-optic light is being used. 14:31:07 Physical assessment completed. ASA score P 2 - A patient with mild systemic disease as per Basim Avalos MD. 14:31:10 Sedation plan: IV Moderate Sedation Medication:Versed, Fentanyl 14:31:11 Versed 2 mg I.V. was administered by Lm Yi RN; for sedation; Verbal order read back and verified. 14:31:17 Use device set Femoral Dx 14:31:18 ACIST Syringe (72936) opened to sterile field. 14:31:18 Bag Decanter (2002S) opened to sterile field. 14:31:19 Medline Cath Pack ([id number]) opened to sterile field. 14:31:20 ACIST Hand Control (08677) opened to sterile field. 14:31:21 ACIST Manifold (82258) opened to sterile field. 14:31:21 DIAGNOSTIC Multipack 5Fr catheter set (VY7022) opened to sterile field. 14:31:22 Tegaderm 4 x 4 (1626W) opened to sterile field. 14:31:23 SHEATH 5FR Neon (HNV225) opened to sterile field. 14:31:24 EMERV2contact Guide Wire (471-309) opened to sterile field. 14:31:27 Procedure started. 14:32:07 Local anesthetic to right femoral artery with Lidocaine 2% by Basim Avalos MD.INITIAL ACCESS ONLY 14:32:14 Fentanyl 100 mcg I.V. was administered by Lm Yi RN; for sedation; Verbal order read back and verified. 14:33:16 Versed 2 mg I.V. was administered by Lm Yi RN; for sedation; Verbal order read back and verified. 14:33:40 A 5 Fr sheath was inserted into the Right Femoral artery 14:34:28 A MULTIPACK Pigtail 5 Fr catheter was advanced over the wire and used for LV Angiography. 14:34:32 Zero performed for pressure channel P1 14:34:38 Zero performed for pressure channel P1 14:34:45 Zero performed for pressure channel P1 14:35:02 LV gram done using GARCIA 14:35:07 Injector settings: Ml/sec: 10, Volume: 20, 14:35:10 LV angiography performed. 14:35:25 EF : 60 % 14:35:27 Catheter removed. 14:35:33 A MULTIPACK JL 4.0 5Fr catheter was advanced over the wire and used for Left Coronary Angiography. 14:36:43 LCA angiography performed. 14:36:44 Catheter removed. 14:36:50 A MULTIPACK 3DRC 5Fr catheter was advanced over the wire and used for Right Coronary Angiography. 14:36:54 RCA angiography performed. 14:36:55 Catheter removed. 14:37:48 EXOSEAL 5Fr (EX500) opened to sterile field. 14:37:58 Sheath removed intact; hemostasis achieved with Exoseal to the Right Femoral artery. 14:38:00 Procedure ended.(Physican Out) 14:38:03 Fluoroscopy time 01.00 minutes. 14:38:10 Flurop Dose total: 162.88 14:38:10 Fluoroscopy dose: 162.88 mGy 14:38:17 Dose Area Product 1133.85 mGy/cm. 14:38:23 Contrast amount:Isovue 370 0ml. 14:38:25 Contrast amount:Isovue 300 45ml. 14:38:28 Maximum allowable dose exceeded? No. 14:38:33 Sharps counted by scrub and verified by R.N. 14:38:35 Insertion/operative site no bleeding no hematoma. 14:38:37 Post-op/insertion site Right Femoral artery dressed using a 4 x 4 and Tegaderm. 14:38:40 Post right femoral artery:stable 14:38:41 Post Procedure Pulses reassessed and unchanged 14:38:44 Post procedure: right dorsailis pedis pulse 2+ Normal; easily identifiable; not easily obliterated. 14:38:47 Post-procedure physical assessment completed. ASA score P 2 - A patient with mild systemic disease as per Basim Avalos MD. 14:38:49 Post procedure rhythm: unchanged. 14:38:50 Post procedure instruction explained to patient.Patient verbalizes understanding. 14:38:52 Procedure and supply charges have been captured, reviewed, submitted and are correct. 14:39:27 Procedure Complication : No complications 14:39:29 Vital chart was stopped 14:39:32 Operative report dictated upon procedure completion. 14:39:33 See physician's report for complete and final results. 14:39:35 Report given to PCU. 14:39:39 Patient transfered to PCU with Bed. 14:39:40 Procedure ended. 14:39:40 Full Disclosure recording stopped 14:39:43 End room use (Document Last) 14:43:00 End room use (Document Last) 14:43:23 End room use (Document Last) Device Usage Item Name Manufacture Quantity Catalog Hospital Part Current Minimal L ot# / Number Charge Number Stock Stock Serial# Code [place] [address] 05253 322847 026913 332263 20 Syringe Medical (92462) Systems Inc Bag Microtek 1 2001S 559774 85742 583053 5 Decanter Medical Inc. (2001S) Medline Medline 1 [id number] 235364 41713 429272 5 Cath Pack ([id number]) ACIST Hand Acist 1 45690 041932 701083 291238 5 Control Medical (62190) Systems Inc ACIST Acist 1 62927 497100 272444 142325 5 Manifold Medical (32376) Systems Inc DIAGNOSTIC Cardinal 1 YE6665 059893 83130 232820 30 Multipack PaperV 5Fr catheter set (IB3308) Tegaderm 4 3M 1 1626W 874961 193290 569932 5 x 4 (1626W) SHEATH 5FR Terumo 1 CUU599 971421 580349 929407 5 Neon (XYL458) EMERALD Cardinal 1 502455 783100 882871 102003 5 Guide Wire [facility] (502-719) MULTIPACK Cardinal 1 932699 5 Pigtail 5 Health Fr catheter MULTIPACK Cardinal 1 728625 5 JL 4.0 5Fr Health catheter MULTIPACK Cardinal 1 693864 5 3DRC 5Fr Health catheter EXOSEAL 5Fr Cardinal 1 EX500 606665 411245 374922 10 (EX500) Health Signature Audit Jerome Stage Time Signature Unsigned Intra-Procedure 11/21/2019 Lm 2:43:00 PM Kassidy HOWARD Intra-Procedure 11/21/2019 Lázaro Moise RT(R) 2:43:23 PM Intra-Procedure 11/21/2019 Basim Avalos 2:43:47 PM [place] [id number] [place] [address]
--- NOTE | ~2019-11-20 | EC ---
PATIENT:MARCI DUENAS DATE OF SERVICE: 11/20/19 SEX: F MEDICAL RECORD: [id number] DATE OF : [birth year] LOCATION:D. D.211 AGE OF PATIENT: 43 ADMISSION DATE: 11/20/19 REFERRING PHYSICIAN: INTERPRETING PHYSICIAN: MIRIAM AVALOS MD ECHOCARDIOGRAM REPORT ECHO CHARGES 5 ECHO LIMITED Date: 11/21/19 CLINICAL DIAGNOSIS: NV ECHOCARDIOGRAPHIC MEASUREMENTS (adult normal given) AC root (d.<3.7cm) 0 cm LV Septum d (<1.2 cm> 0 cm Valve Excursion 0 cm LV Septum (systole) 0 cm Left Atria (s.<4.0cm> 0 cm LVPW d(<1.2cm) 0 cm RV (d.<2.3cm) cm LVPW (sytole) 0 cm LV diastole(<5.6CM) 0 cm MV E-F(>70mm/sec) 0 cm LV systole 00 cm LVOT Diameter 0 cm MV exc.(>10mm) 00 cm Est.ejection fraction (50-75%) % DOPPLER: LVIT cm/sec A 0 cm/sec E 0 cm/sec LA 0 cm/sec RVSP 0 mmHg LVOT 0 cm/sec AOP1/2T 0 m/s Asc. Ao cm/sec RVOT 0 cm/sec RA 0 cm/sec PA 0 cm/sec AV Gradient Peak 0 mmHg AV Mean 0 mmHg AV Area cm MV Gradient Peak 0 mmHg MV Mean 0 mmHg MV Area 0 cm COMMENTS: 0 Shot Dropper: Serjio CARBALLO Vault Worker: 1 Dr. Avalos TAPE# PACS Pericardial Effusion N DATE OF SERVICE: Limited echocardiogram for ejection fraction Left ventricular chamber size is within normal limits. Left ventricular systolic function is normal at 55%. TRANSINT:[id number] Voice Confirmation ID: [id number] DOCUMENT ID: [id number] ECHOCARDIOGRAM REPORT [id number] MADELIN DUENASBERLY Lisandro MIRIAM AVALOS MD CC: [id number] DICTATION DATE: 11/21/19 1605 PAPER STRIPPER: 11/21/19 2308 ADM IN [facility] [address] [place] [address]
[~2019-11-20 12:42] MED LIST changes: +PLAVIX75 MG PO
[2019-11-20 13:21] LABS: BASOPHILS 0.2 % (0-2); CALC OSMOLALITY 280 mosm/kg (275-300); CALCIUM 8.6 mg/dL (8.5-10.1); CARBON DIOXIDE 26.6 mmol/L (21.0-32.0); CHLORIDE - SERUM 98 mmol/L (98-107); EOSINOPHILS 0.9 % (0-7); GLUCOSE 341 mg/dL (74-106); HEMATOCRIT 23.7 % (36.0-48.0); IMMATURE GRANULOCYTES 0.2 % (0-5); MCH 22.2 pg (26.0-34.0); MCHC 29.5 g/dL (31.0-37.0); MEAN PLATELET VOLUME 7.8 fL (7.4-10.4); MONOCYTES 4.9 % (2-11); NEUTROPHILS 74.8 % (40-80); POTASSIUM - SERUM 4.2 mmol/L (3.5-5.1); RBC 3.16 10x6/uL (4.00-5.40); RDW 15.7 % (11.5-14.5); SODIUM 134 mmol/L (136-145); UREA NITROGEN 12 mg/dL (7-18); eGFR NON AFRICAN AMERICAN 64 mL/min (90-120)
[2019-11-20 13:23] LABS: PLATELET COUNT 705 10x3/uL (130-400)
[2019-11-20 13:26] LABS: APTT 21.8 SECONDS (22.8-39.4); INR 0.98 (0.85-1.17); PROTIME 12.9 SECONDS (11.6-15.0)
[2019-11-20 13:45] LABS: ALBUMIN 3.1 g/dL (3.4-5.0); ALKALINE PHOSPHATASE 113 U/L (30-120); ALT (SGPT) 20 U/L (10-68); BILIRUBIN - TOTAL 0.18 mg/dL (0.2-1.3); CKMB 0.7 U/L (0.0-3.6); CREATINE KINASE 49 UL (21-215); MAGNESIUM - SERUM 1.7 mg/dL (1.8-2.4); PROTEIN - SERUM 7.4 g/dL (6.4-8.2)
[2019-11-20 13:52] LABS: TROPONIN-I 0.126 ng/mL (0.000-0.060)
--- NOTE | 2019-11-20 13:52 | NUR ---
CRITICAL LAB" [facility] 0.[address] DR WALTER NOTIFIED
[2019-11-20 13:59] LABS: % SATURATION 2 % (15-55); IRON 11 ug/dl (35-150); TOTAL IRON BIND CAPACITY 391 ug/dl (260-445); UNSAT IRON BIND CAPACITY 380 ug/dl (150-375)
[2019-11-20 14:00] VITALS: BP 142/73
[2019-11-20 14:07] VITALS: BP 142/73
--- NOTE | 2019-11-20 14:48 | NUR ---
REPORT CALLED TO ANITA MILTON
--- NOTE | 2019-11-20 14:53 | NUR ---
RECEIVED REPORT FROM JAMAR IN THE ED. STATES THAT CRISTÓBAL NEEDS SOME BLOOD AND A "NEW IRON MEDICATION I HAVE NEVER HEARD OF".
[2019-11-20 15:08] VITALS: BP 148/69
--- NOTE | 2019-11-20 15:09 | NUR ---
GUAIC STOOL= NEGATIVE
--- NOTE | 2019-11-20 15:10 | NUR ---
I CALLED CLAIRE THOMAS APN TO CLARIFY BLOOD TRANSFUSION ORDER THEY IS NO ORDER TO TRANSFUSE PER NURSING. SHE STATES TO GIVE 1 UNIT AND GET STOOL FOR OCCULT. DONE.
[2019-11-20 15:19] LABS: PATH REVIEW PERIPHERAL SMEAR REVIEWED
--- NOTE | 2019-11-20 15:20 | NUR ---
FERRLICIT INFUSING UPON TX TO ROOM
--- NOTE | 2019-11-20 15:20 | NUR ---
TRANSPORTED TO ROOM #2117, CONDITION STABLE
--- NOTE | 2019-11-20 15:20 | NUR ---
RECEIVED TO ROOM VIA WHEELCHAIR WITH IV IRON INFUSING TO RIGHT AC AT 125 CC/HR PIV. DENIES NEEDS AT THIS TIME.
[2019-11-20 16:07] VITALS: BP 142/70; BMI 37.0
[2019-11-20 20:10] LABS: HEMATOCRIT 22.7 % (36.0-48.0)
[2019-11-20 20:12] LABS: HEMOGLOBIN 6.6 g/dL (12-16)
--- NOTE | 2019-11-20 20:20 | NUR ---
NOTIFIED DAKSHA WATSON APN OF CRITICAL HEMOGLOBIN 6.6. NO NEW ORDERS GIVEN.
[2019-11-20 20:30] VITALS: BP 141/70
[2019-11-20 20:43] LABS: CKMB 0.4 U/L (0.0-3.6); CREATINE KINASE 47 UL (21-215)
[2019-11-20 20:48] LABS: TROPONIN-I 0.121 ng/mL (0.000-0.060)
--- NOTE | 2019-11-20 20:54 | NUR ---
1 UNIT OF PRBC INITIATED. PATIENT IS ALERT AND ORIENTED, RESTING COMFORTABLY IN BED. NO S/S OF DISTRESS. NO C/O PAIN OF PAIN. VITALS SIGNS: BP 141/70 HR: 95 R: 19 O2: 100% ON RA T: 98.0
--- NOTE | 2019-11-21 00:21 | NUR ---
INFUSION OF PRBC COMPLETE.
[2019-11-21 01:47] LABS: BASOPHILS 0.2 % (0-2); EOSINOPHILS 1.1 % (0-7); HEMATOCRIT 24.4 % (36.0-48.0); IMMATURE GRANULOCYTES 0.3 % (0-5); LYMPHOCYTES 26.1 % (15-50); MCH 22.8 pg (26.0-34.0); MCHC 29.9 g/dL (31.0-37.0); MCV 76.3 fL (80.0-100.0); MEAN PLATELET VOLUME 7.8 fL (7.4-10.4); MONOCYTES 6.4 % (2-11); NEUTROPHILS 65.9 % (40-80); PLATELET COUNT 606 10x3/uL (130-400); RDW 15.9 % (11.5-14.5)
[2019-11-21 02:20] LABS: WBC 15.1 10x3/uL (4.8-10.8)
[2019-11-21 02:21] LABS: HEMOGLOBIN 7.3 g/dL (12-16)
[2019-11-21 02:36] LABS: % SATURATION 96 % (15-55); CALC OSMOLALITY 283 mosm/kg (275-300); CALCIUM 8.3 mg/dL (8.5-10.1); CARBON DIOXIDE 29.1 mmol/L (21.0-32.0); CHLORIDE - SERUM 105 mmol/L (98-107); CKMB 0.6 U/L (0.0-3.6); CREATINE KINASE 46 UL (21-215); FERRITIN 21 ng/mL (3-244); GLUCOSE 236 mg/dL (74-106); IRON 336 ug/dl (35-150); MAGNESIUM - SERUM 1.9 mg/dL (1.8-2.4); PHOSPHOROUS 3.1 mg/dL (2.5-4.9); POTASSIUM - SERUM 3.9 mmol/L (3.5-5.1); SODIUM 138 mmol/L (136-145); TOTAL IRON BIND CAPACITY 348 ug/dl (260-445); TROPONIN-I 0.134 ng/mL (0.000-0.060); UNSAT IRON BIND CAPACITY 12 ug/dl (150-375); UREA NITROGEN 12 mg/dL (7-18); eGFR NON AFRICAN AMERICAN 64 mL/min (90-120)
--- NOTE | 2019-11-21 02:45 | NUR ---
CRITICAL LAB CALLED TO DAKSHA WATSON APN. HGB 7.3, HCT 24.4. NO NEW ORDERS GIVEN.
[2019-11-21 04:48] VITALS: BP 136/70
--- NOTE | 2019-11-21 07:36 | NUR ---
ALERT AND ORIENTED. DENIES ANY NEEDS. TELEMERTY SHOWS SR 80. RIGHT AC IV OF NS AT 75. UP AB DILLAN. NPO UNTILL SEES HER. SR UP WITH CALL LIGHT IN REACH
[2019-11-21 07:57] LABS: HEMATOCRIT 24.8 % (36.0-48.0)
[2019-11-21 08:23] LABS: CKMB 0.7 U/L (0.0-3.6); CREATINE KINASE 43 UL (21-215)
[2019-11-21 08:49] LABS: HEMOGLOBIN 7.5 g/dL (12-16)
[2019-11-21 09:18] VITALS: BP 110/54
--- NOTE | 2019-11-21 09:45 | NUR ---
1ST UNIT OF BLOOD STARTED PER Chadd JORGE RN. VS STABLE. WILL MONITOR
--- NOTE | 2019-11-21 10:14 | NUR ---
BLOOD INFUSING WELL WITH NO ADVERSE REACTION. V/S STABLE
[2019-11-21 12:28] VITALS: Ht 172.7 cm; Wt 118.7 kg
[2019-11-21 13:18] VITALS: BP 133/76
--- NOTE | 2019-11-21 15:24 | NUR ---
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 TELEMERTY SHOWS SR80. RIGHT GROIN SOFT WIYH DRSG DRY AND INTACK. V/S STABLE. WILL MONITOR
[2019-11-21 16:25] LABS: APPEARANCE HAZY (CLEAR); COLOR YELLOW (YELLOW); SPECIFIC GRAVITY 1.015 (1.005-1.020)
[2019-11-21 16:26] LABS: BILIRUBIN NEGATIVE (NEGATIVE); GLUCOSE 1000 mg/dL (NEGATIVE); KETONE NEGATIVE (NEGATIVE); NITRITE NEGATIVE (NEGATIVE); PROTEIN NEGATIVE (NEGATIVE); UROBILINOGEN NORMAL (NORMAL)
[2019-11-21 17:12] VITALS: BP 141/80
[2019-11-21 19:41] LABS: HEMATOCRIT 32.9 % (36.0-48.0); HEMOGLOBIN 10.4 g/dL (12-16)
--- NOTE | 2019-11-21 20:08 | NUR ---
REPORT RECIEVED AND INITIAL ROUNDS COMPLETED. RIGHT GROIN INCISION SITE WITH DRESSING C/D/I. NO SWELLING OR BRUISING. SR PER TELEMETRY. UP AND ABOUT IN HER ROOM. REVIEWED PLAN OF CARE/INTERVENTIONS. CPOC.
[2019-11-21 20:19] VITALS: BP 130/64
--- NOTE | 2019-11-21 21:45 | NUR ---
BEDTIME MEDS GIVEN. TYLENOL GIVEN FOR PAIN, PT SAYING SHE NEEDS MORPHINE FOR PAIN TO LEFT SIDE/LEFT LEG THAT COMES AND GOES. MORPHINE 2MG SIVP GIVEN. IV IRON BEING ADMINISTERED. FSBS 247, 4 UNITS OF HUMALOG GIVEN. CPOC.
[2019-11-21 22:48] LABS: HEMATOCRIT 30.1 % (36.0-48.0); HEMOGLOBIN 9.4 g/dL (12-16)
[2019-11-22 00:21] VITALS: BP 135/75
--- NOTE | 2019-11-22 03:36 | NUR ---
RESTING IN BED WITH NO DISTRESS. CPOC.
[2019-11-22 05:29] VITALS: BP 124/62
[2019-11-22 08:25] LABS: BASOPHILS 0.3 % (0-2); EOSINOPHILS 1.4 % (0-7); HEMATOCRIT 33.7 % (36.0-48.0); HEMOGLOBIN 10.4 g/dL (12-16); IMMATURE GRANULOCYTES 0.2 % (0-5); LYMPHOCYTES 20.8 % (15-50); MCH 24.4 pg (26.0-34.0); MCHC 30.9 g/dL (31.0-37.0); MEAN PLATELET VOLUME 7.9 fL (7.4-10.4); MONOCYTES 5.6 % (2-11); NEUTROPHILS 71.7 % (40-80); PLATELET COUNT 492 10x3/uL (130-400); RDW 16.2 % (11.5-14.5); WBC 13.3 10x3/uL (4.8-10.8)
[2019-11-22 08:26] LABS: MCV 78.9 fL (80.0-100.0); RBC 4.27 10x6/uL (4.00-5.40)
[2019-11-22 08:32] VITALS: BP 152/71
[2019-11-22 09:00] LABS: ANION GAP 12.9 mmol/L (8-16); CALCIUM 8.6 mg/dL (8.5-10.1); CARBON DIOXIDE 25.3 mmol/L (21.0-32.0); MAGNESIUM - SERUM 1.9 mg/dL (1.8-2.4); PHOSPHOROUS 3.6 mg/dL (2.5-4.9); POTASSIUM - SERUM 4.2 mmol/L (3.5-5.1)
[2019-11-22 09:15] VITALS: BP 135/81
--- NOTE | 2019-11-22 11:32 | NUR ---
IV AND TELEMETRY DCD. DC PLANS GIVEN. UNDERSTANDING VOICED. ESCORTED TO CAR BY W/C.
== END 2019-11-22 11:33 | disposition home or self-care (01) | DRG 811 ==
LOC: D.ER 12:42 → D.M2 14:36 → OBSVTIME 14:55 → D.M2 16:12 → D.SDCHOLD 11-21 10:23 → D.M2 11-21 10:23
PROVIDERS: Family Medicine; Internal Medicine Interventional Cardiology; ADMIT Internal Medicine Nephrology; ATTEND Internal Medicine Nephrology
PROC: B2151ZZ Fluoroscopy of Left Heart using Low Osmolar Contrast (ICD-10-PCS; 2019-11-21)
PROC: 4A023N7 Measurement of Cardiac Sampling and Pressure, Left Heart, Percutaneous Approach (ICD-10-PCS; 2019-11-21)
PROC: B2111ZZ Fluoroscopy of Multiple Coronary Arteries using Low Osmolar Contrast (ICD-10-PCS; principal; 2019-11-21 13:51)
DX: D50.9 Iron deficiency anemia, unspecified (principal); I21.4 Non-ST elevation (NSTEMI) myocardial infarction; E87.1 Hypo-osmolality and hyponatremia; E11.9 Type 2 diabetes mellitus without complications; E83.42 Hypomagnesemia; F41.8 Other specified anxiety disorders; I10 Essential (primary) hypertension; E66.9 Obesity, unspecified; Z86.73 Personal history of transient ischemic attack (TIA), and cerebral infarction without residual deficits; Z68.37 Body mass index [BMI] 37.0-37.9, adult

== ENCOUNTER 2019-12-18 00:20 | Inpatient (IN) | payer MEDICAID ==
[~2019-12-18] VITALS: Ht 172.7 cm; Wt 102.3 kg
[~2019-12-18 00:20] MED LIST changes: +ASPIRIN325 MG PO
[2019-12-18 01:02] LABS: BASOPHILS 0.2 % (0-2); EOSINOPHILS 0.7 % (0-7); HEMATOCRIT 24.4 % (36.0-48.0); IMMATURE GRANULOCYTES 0.3 % (0-5); LYMPHOCYTES 18.3 % (15-50); MCH 26.9 pg (26.0-34.0); MCHC 29.9 g/dL (31.0-37.0); MEAN PLATELET VOLUME 8.4 fL (7.4-10.4); MONOCYTES 5.8 % (2-11); NEUTROPHILS 74.7 % (40-80); RBC 2.71 10x6/uL (4.00-5.40); RDW 23.4 % (11.5-14.5); WBC 11.9 10x3/uL (4.8-10.8)
[2019-12-18 01:09] LABS: HEMOGLOBIN 7.3 g/dL (12-16); PLATELET COUNT 601 10x3/uL (130-400)
[2019-12-18 01:13] LABS: APTT 25.9 SECONDS (22.8-39.4); INR 1.17 (0.85-1.17); PROTIME 14.9 SECONDS (11.6-15.0)
[2019-12-18 01:29] LABS: ALBUMIN 3.1 g/dL (3.4-5.0); ALKALINE PHOSPHATASE 110 U/L (30-120); ALT (SGPT) 17 U/L (10-68); BILIRUBIN - TOTAL 0.14 mg/dL (0.2-1.3); CALC OSMOLALITY 288 mosm/kg (275-300); CALCIUM 8.8 mg/dL (8.5-10.1); CARBON DIOXIDE 29.1 mmol/L (21.0-32.0); CHLORIDE - SERUM 101 mmol/L (98-107); CKMB 0.9 U/L (0.0-3.6); CREATINE KINASE 77 UL (21-215); CREATININE - SERUM 1.1 mg/dL (0.6-1.3); MAGNESIUM - SERUM 1.7 mg/dL (1.8-2.4); POTASSIUM - SERUM 4.1 mmol/L (3.5-5.1); PROTEIN - SERUM 7.2 g/dL (6.4-8.2); SODIUM 134 mmol/L (136-145); TROPONIN-I 0.033 ng/mL (0.000-0.060); UREA NITROGEN 14 mg/dL (7-18); eGFR NON AFRICAN AMERICAN 58 mL/min (90-120)
[2019-12-18 01:35] LABS: GLUCOSE 457 mg/dL (74-106)
[2019-12-18 04:07] VITALS: BP 122/71; Ht 172.7 cm; Wt 102.3 kg
--- NOTE | 2019-12-18 06:50 | NUR ---
ALERT AND ORIENTED, RESTING IN BED WITH EYES OPEN. NO C/O PAIN. NO S/S OF ACUTE DISTRESS NOTED. IV TO LEFT AC, NS INFUSING @ 100ML/HR. SITE PATENT WITHOUT REDNESS OR SWELLING. DENIES ANY NEEDS AT THIS TIME. CALL LIGHT IN REACH. WILL CONTINUE TO MONITOR.
[2019-12-18 08:11] LABS: % SATURATION 12 % (15-55); IRON 29 ug/dl (35-150); TOTAL IRON BIND CAPACITY 235 ug/dl (260-445); UNSAT IRON BIND CAPACITY 206 ug/dl (150-375)
[2019-12-18 08:12] LABS: ALBUMIN 2.7 g/dL (3.4-5.0); ANION GAP 10.5 mmol/L (8-16); BILIRUBIN - TOTAL 0.23 mg/dL (0.2-1.3); CALCIUM 8.2 mg/dL (8.5-10.1); CARBON DIOXIDE 28.4 mmol/L (21.0-32.0); CREATININE - SERUM 0.9 mg/dL (0.6-1.3); POTASSIUM - SERUM 3.9 mmol/L (3.5-5.1); PROTEIN - SERUM 6.4 g/dL (6.4-8.2)
[2019-12-18 08:16] LABS: BASOPHILS 0.2 % (0-2); EOSINOPHILS 1.1 % (0-7); HEMOGLOBIN 8.3 g/dL (12-16); IMMATURE GRANULOCYTES 0.1 % (0-5); LYMPHOCYTES 26.5 % (15-50); MCH 27.9 pg (26.0-34.0); MCHC 31.9 g/dL (31.0-37.0); MCV 87.5 fL (80.0-100.0); MEAN PLATELET VOLUME 8.3 fL (7.4-10.4); MONOCYTES 5.9 % (2-11); NEUTROPHILS 66.2 % (40-80); PLATELET COUNT 505 10x3/uL (130-400); RBC 2.97 10x6/uL (4.00-5.40); RDW 21.5 % (11.5-14.5)
[2019-12-18 09:01] VITALS: BP 117/66
[2019-12-18 12:31] LABS: HEMOGLOBIN 7.7 g/dL (12-16)
[2019-12-18 13:12] VITALS: BP 121/57
[2019-12-18 13:48] LABS: INR 1.17 (0.85-1.17); PROTIME 14.8 SECONDS (11.6-15.0)
[2019-12-18 16:44] VITALS: BP 121/71
--- NOTE | 2019-12-18 17:00 | NUR ---
STARTED INFUSION OF 1 UNIT OF PRBC. VITALS STABLE.
--- NOTE | 2019-12-18 17:35 | NUR ---
I have reviewed this patient and I concur with the Shift Assessment completed by the Licensed Practical Nurse today this shift.
--- NOTE | 2019-12-18 18:47 | NUR ---
ALERT AND ORIENTED. DENIES ANY NEEDS AT THIS TIME. CALL LIGHT IN REACH. WILL CONTINUE TO MONITOR.
[2019-12-18 20:00] VITALS: BP 123/69
[2019-12-18 22:44] LABS: HEMATOCRIT 28.6 % (36.0-48.0)
[2019-12-19] VITALS: BP 142/70
--- NOTE | 2019-12-19 03:03 | NUR ---
PATIENT IS ALERT AND ORENTED ABLE TO VOICE NEEDS AND WANTS TO STAFF, IV TO LEFT AC TELEMETRY IN PLACE, FSBS PER ORDERS WITH S/S. COMPLETED UNIT OF PRBC AT 1999 WITH NO REACTION NOTED AT THIS TIME. RESTING IN BED WITH CALL LIGHT IN REACH.
--- NOTE | 2019-12-19 06:50 | NUR ---
ALERT AND ORIENTED. NO C/O PAIN. NO S/S OF ACUTE DISTRESS NOTED. IV TO LEFT AC, SL. SITE PATENT WITHOUT REDNESS OR SWELLING. DENIES ANY NEEDS AT THIS TIME. CALL LIGHT IN REACH. WILL CONTINUE TO MONITOR.
[2019-12-19 07:12] LABS: BACTERIA FEW /hpf (NEGATIVE); BILIRUBIN NEGATIVE (NEGATIVE); GLUCOSE 100 mg/dL (NEGATIVE); KETONE NEGATIVE (NEGATIVE); NITRITE POSITIVE (NEGATIVE); RED CELLS - URINE >50 /hpf (0-5); UROBILINOGEN NORMAL (NORMAL); WHITE CELLS - URINE RARE /hpf (NEGATIVE)
[2019-12-19 07:13] LABS: BASOPHILS 0.2 % (0-2); EOSINOPHILS 1.3 % (0-7); HEMATOCRIT 28.9 % (36.0-48.0); HEMOGLOBIN 8.9 g/dL (12-16); IMMATURE GRANULOCYTES 0.2 % (0-5); MCH 27.1 pg (26.0-34.0); MCHC 30.8 g/dL (31.0-37.0); MCV 88.1 fL (80.0-100.0); MEAN PLATELET VOLUME 8.4 fL (7.4-10.4); MONOCYTES 5.3 % (2-11); PLATELET COUNT 502 10x3/uL (130-400); RBC 3.28 10x6/uL (4.00-5.40); RDW 21.4 % (11.5-14.5); WBC 10.4 10x3/uL (4.8-10.8)
[2019-12-19 07:14] LABS: HCG URINE NEGATIVE (NEGATIVE)
[2019-12-19 07:24] LABS: CALCIUM 8.4 mg/dL (8.5-10.1); CARBON DIOXIDE 27.4 mmol/L (21.0-32.0); CREATININE - SERUM 0.9 mg/dL (0.6-1.3); POTASSIUM - SERUM 4.4 mmol/L (3.5-5.1)
[2019-12-19 08:11] VITALS: BP 125/68
[2019-12-19 08:41] VITALS: BP 136/77
[2019-12-19 12:09] LABS: HEMATOCRIT 29.3 % (36.0-48.0); HEMOGLOBIN 9.4 g/dL (12-16)
[2019-12-19 13:41] VITALS: BP 148/77
[2019-12-19 16:13] VITALS: BP 132/65
--- NOTE | 2019-12-19 17:38 | NUR ---
I have reviewed this patient and I concur with the Shift Assessment completed by the Licensed Practical Nurse today this shift.
--- NOTE | 2019-12-19 18:43 | NUR ---
ALERT AND ORIENTED. NO C/O PAIN. NO S/S OF ACUTE DISTRESS NOTED. DENIES ANYTHING FURTHER. CALL LIGHT IN REACH. WILL CONTINUE TO MONITOR.
[2019-12-19 20:00] VITALS: BP 120/62
[2019-12-20] VITALS: BP 123/60; BP 146/74
[2019-12-20 04:00] VITALS: BP 152/77
[2019-12-20 09:01] VITALS: BP 129/54
[2019-12-20 09:45] LABS: BASOPHILS 0.3 % (0-2); EOSINOPHILS 1.8 % (0-7); HEMATOCRIT 30.4 % (36.0-48.0); HEMOGLOBIN 9.2 g/dL (12-16); IMMATURE GRANULOCYTES 0.4 % (0-5); LYMPHOCYTES 23.1 % (15-50); MCH 27.5 pg (26.0-34.0); MCHC 30.3 g/dL (31.0-37.0); MEAN PLATELET VOLUME 8.3 fL (7.4-10.4); MONOCYTES 5.9 % (2-11); NEUTROPHILS 68.5 % (40-80); PLATELET COUNT 445 10x3/uL (130-400); RBC 3.35 10x6/uL (4.00-5.40); RDW 21.2 % (11.5-14.5)
[2019-12-20 09:47] LABS: MCV 90.7 fL (80.0-100.0); WBC 13.5 10x3/uL (4.8-10.8)
[2019-12-20 10:13] LABS: ANION GAP 9.6 mmol/L (8-16); CALCIUM 8.5 mg/dL (8.5-10.1); CARBON DIOXIDE 28.1 mmol/L (21.0-32.0); CREATININE - SERUM 0.9 mg/dL (0.6-1.3); POTASSIUM - SERUM 3.7 mmol/L (3.5-5.1)
[2019-12-20 13:28] VITALS: BP 111/63
[2019-12-20] MEDS ORDERED: FLORAJEN3 CAPS460 MG PO (14:43)
[2019-12-20] MEDS ORDERED: SMZ-TMP DS TABL1 TAB PO (14:44)
--- NOTE | 2019-12-20 17:23 | NUR ---
DISCHARGE INSTRUCTIONS GIVEN, IV REMOVED, TELEMETRY REMOVED.
== END 2019-12-20 17:23 | disposition home or self-care (01) | DRG 760 ==
LOC: D.ER 00:20 → D.MS 01:21 → OBSVTIME 01:21 → D.MS 13:35
PROVIDERS: Family Medicine; ADMIT Internal Medicine Nephrology; ATTEND Internal Medicine Nephrology
DX: N93.9 Abnormal uterine and vaginal bleeding, unspecified (principal); I21.4 Non-ST elevation (NSTEMI) myocardial infarction; D50.9 Iron deficiency anemia, unspecified; D21.9 Benign neoplasm of connective and other soft tissue, unspecified; I10 Essential (primary) hypertension; E11.65 Type 2 diabetes mellitus with hyperglycemia; M54.9 Dorsalgia, unspecified; K59.00 Constipation, unspecified; E11.40 Type 2 diabetes mellitus with diabetic neuropathy, unspecified; I25.10 Atherosclerotic heart disease of native coronary artery without angina pectoris

== ENCOUNTER 2020-02-23 06:38 | Inpatient (IN) | payer MEDICAID ==
[2020-02-23] VITALS (7 sets, daily range): BP systolic 121–148; BP diastolic 78–90
[~2020-02-23] VITALS: Ht 172.7 cm; Wt 117.3 kg
[~2020-02-23 06:38] MED LIST changes: +FLORAJEN3 CAPS460 MG PO; +SMZ-TMP DS TABL1 TAB PO
[2020-02-23 07:20] LABS: ANION GAP 14.4 mmol/L (8-16); CALCIUM 8.6 mg/dL (8.5-10.1); CARBON DIOXIDE 25.3 mmol/L (21.0-32.0); CREATININE - SERUM 0.9 mg/dL (0.6-1.3); POTASSIUM - SERUM 3.7 mmol/L (3.5-5.1)
[2020-02-23 07:25] LABS: BILIRUBIN - TOTAL 0.22 mg/dL (0.2-1.3); PROTEIN - SERUM 6.9 g/dL (6.4-8.2)
[2020-02-23 07:27] LABS: HCG SERUM NEGATIVE (NEGATIVE)
[2020-02-23 07:35] LABS: BASOPHILS 0.3 % (0-2); EOSINOPHILS 0.8 % (0-7); HEMATOCRIT 26.4 % (36.0-48.0); HEMOGLOBIN 8.1 g/dL (12-16); IMMATURE GRANULOCYTES 0.2 % (0-5); LYMPHOCYTES 27.2 % (15-50); MCHC 30.7 g/dL (31.0-37.0); MEAN PLATELET VOLUME 8.5 fL (7.4-10.4); MONOCYTES 5.7 % (2-11); NEUTROPHILS 65.8 % (40-80); PLATELET COUNT 523 10x3/uL (130-400); WBC 11.9 10x3/uL (4.8-10.8)
--- NOTE | 2020-02-23 08:14 | NUR ---
PT PROVIDED URINE SAMPLE. LARGE CLOTS NOTED IN URINE CUP. URINE IS DARK RED. ADVISED EDP.
[2020-02-23 08:48] LABS: BILIRUBIN NEGATIVE (NEGATIVE); GLUCOSE 1000 mg/dL (NEGATIVE); KETONE NEGATIVE (NEGATIVE); NITRITE NEGATIVE (NEGATIVE); SPECIFIC GRAVITY 1.015 (1.005-1.020); UROBILINOGEN NORMAL (NORMAL)
[2020-02-23 08:49] LABS: BACTERIA MODERATE /hpf (NEGATIVE); EPITHELIAL CELLS 0-5 /hpf (0-5); RED CELLS - URINE >50 /hpf (0-5); WHITE CELLS - URINE OCC /hpf (NEGATIVE)
--- NOTE | 2020-02-23 09:57 | NUR ---
FSBS 419
--- NOTE | 2020-02-23 09:57 | NUR ---
PT C/O CHEST PAIN AND LEFT SHOULDER PAIN. ADVISED EDP.
--- NOTE | 2020-02-23 10:32 | NUR ---
CALLED REPORT TO [facility] UNABLE TO TRANSPORT AT THIS TIME, AWAITING EVS TO CLEAN ROOM.
[2020-02-23 11:00] LABS: CKMB 0.6 U/L (0.0-3.6); CREATINE KINASE 62 UL (21-215); MAGNESIUM - SERUM 1.7 mg/dL (1.8-2.4); TROPONIN-I 0.059 ng/mL (0.000-0.060)
--- NOTE | 2020-02-23 11:40 | NUR ---
SPOKE WITH HERBERT REGARDING STATUS OF ROOM, AWAITING ROOM TO BE READY FOR PATIENT.
[2020-02-23 11:47] LABS: APTT 23.1 SECONDS (22.8-39.4); INR 0.99 (0.85-1.17)
[2020-02-23 11:49] LABS: D-DIMER-QUANTITATIVE 0.28 ug/mLFEU (0.20-0.54)
--- NOTE | 2020-02-23 12:29 | NUR ---
AWAITING BED FOR PT ROOM ON FLOOR.
--- NOTE | 2020-02-23 13:30 | NUR ---
RECEIVED PT VIA STRETCHER FROM ER. STRETCHER PLACED IN LOW POSITION. PT AMBULATED TO BATHROOM WITHOUT ASSISTANCE WITH THIS NURSE STANDING BY. VOIDED WITHOUT DIFFICULTY. AMBULATED TO BED; STEADY GATE. FSBS CHECKED. BLOOD TRANSFUSION CONTINUES VIA IV PUMP AT 125CC/HR. VS TAKEN.
--- NOTE | 2020-02-23 14:19 | NUR ---
DR. WILDE CALLED TO REPORT PAIN AND FSBS RESULTS. DR. WILDE INFORMS RN TO CALL ADDY RANGEL.
--- NOTE | 2020-02-23 14:21 | NUR ---
ADDY RANGEL CONTACTED REGARDING PT. CLAIRE UNAWARE THAT PT WAS GOING TO BE ADMITTED TO DR. WILDE'S SERVICE, STATES SHE THOUGHT THEY WERE JUST CONSULTED AND DR. WALKER WAS GOING TO BE PRIMARY. THIS RN REPORTED TO CLAIRE THAT I WAS TOLD DR. WILDE WAS PRIMARY WITH DR. WALKER CONSULTED D/T VAG BLEEDING. REPORT GIVEN REGARDING PT CURRENTLY C/O OF MID AND L SIDE CHEST PAIN WITH PAIN IN L SIDE OF HER JAW AND DOWN TO HER L HIP. ALSO REPORTED CURRENT FSBS. PER CLAIRE, SHE WILL REVIEW PT CHART AND PLACE ORDERS.
--- NOTE | 2020-02-23 14:40 | NUR ---
C/O PAIN TO ENTIRE L SIDE, 04/30, TYLENOL GIVEN PER ORDER. REPORTS THAT SHE FEELS LIKE CHEST PAIN HAS INCREASED. BURGLAR ALARM INSPECTOR STRENGTH UNEQUAL WITH LEFT SIDED WEAKNESS NOTED, SMILE SYMMETRICAL, NO SLURRED SPEECH NOTED. SUNGLASSES REMAIN ON D/T PT REPORTS THAT LIGHT HURTS HER EYES D/T HAVING L RETINAL DETACHMENT AND CATARACTS. ALSO C/O NUMBESS AND TINGLING TO BLE WITH HEAVINESS TO LLE.
--- NOTE | 2020-02-23 14:43 | NUR ---
RAPID RESPONSE CALLED. ANITA FLORES REMAINS AT BEDSIDE AND Dali JACKSON RN TO BEDSIDE. REMAINS A&O X4.
--- NOTE | 2020-02-23 14:43 | NUR ---
LATOYA, PRODUCT EXPERT'S, RT, AND RN RESOURCE NURSE TO BEDSIDE.
--- NOTE | 2020-02-23 14:44 | NUR ---
JONH, LAB TO BEDSIDE.
--- NOTE | 2020-02-23 14:46 | NUR ---
DR. WILDE AND CLAIRE, TESTER REGULATOR TO BEDSIDE. REPORT GIVEN REGARDING PT C/O L SIDED CHEST PAIN, L SIDED JAW PAIN AND PAIN TO L HIP WELL NOTED L SIDED WEAKNESS. PER DR. HARRISON TRANSFER PT TO [facility] FOR HIM TO EVAL FURTHER.
--- NOTE | 2020-02-23 15:08 | NUR ---
REPORT CALLED TO ANITA BEST
[2020-02-23 15:30] LABS: CKMB 0.5 U/L (0.0-3.6); CREATINE KINASE 60 UL (21-215); TROPONIN-I 0.058 ng/mL (0.000-0.060)
--- NOTE | 2020-02-23 19:30 | NUR ---
RECEIVED BEDSIDDE REPORT. PATIENT IS ALERT AND ORIENTED, RESTING COMFORTABLY IN BED. RESPIRATIONS ARE EVEN AND UNLABORED. NO S/S OF DISTRESS. NO C/O PAIN. CALL LIGHT WITHIN REACH. CALL LIGHT WITHIN REACH.
[2020-02-23 20:29] LABS: HEMATOCRIT 31.3 % (36.0-48.0); HEMOGLOBIN 9.6 g/dL (12-16)
[2020-02-23 20:54] LABS: CKMB 0.3 U/L (0.0-3.6); CREATINE KINASE 55 UL (21-215); TROPONIN-I 0.045 ng/mL (0.000-0.060)
[2020-02-24 01:01] VITALS: BP 138/86; BMI 40.3
[2020-02-24 03:14] LABS: BASOPHILS 0.1 % (0-2); EOSINOPHILS 0.9 % (0-7); HEMATOCRIT 32.8 % (36.0-48.0); HEMOGLOBIN 10.1 g/dL (12-16); IMMATURE GRANULOCYTES 0.3 % (0-5); LYMPHOCYTES 21.1 % (15-50); MCH 27.1 pg (26.0-34.0); MCHC 30.8 g/dL (31.0-37.0); MCV 87.9 fL (80.0-100.0); MEAN PLATELET VOLUME 8.4 fL (7.4-10.4); MONOCYTES 4.5 % (2-11); NEUTROPHILS 73.1 % (40-80); PLATELET COUNT 458 10x3/uL (130-400); RDW 14.1 % (11.5-14.5); WBC 14.3 10x3/uL (4.8-10.8)
[2020-02-24 03:15] LABS: RBC 3.73 10x6/uL (4.00-5.40)
[2020-02-24 03:59] LABS: ALBUMIN 3.1 g/dL (3.4-5.0); ALKALINE PHOSPHATASE 125 U/L (30-120); ALT (SGPT) 23 U/L (10-68); CALCIUM 8.8 mg/dL (8.5-10.1); CARBON DIOXIDE 26.9 mmol/L (21.0-32.0); CHLORIDE - SERUM 102 mmol/L (98-107); CKMB 0.5 U/L (0.0-3.6); CREATINE KINASE 59 UL (21-215); POTASSIUM - SERUM 3.7 mmol/L (3.5-5.1); PROTEIN - SERUM 7.1 g/dL (6.4-8.2); SODIUM 137 mmol/L (136-145); TROPONIN-I 0.055 ng/mL (0.000-0.060); UREA NITROGEN 11 mg/dL (7-18); eGFR NON AFRICAN AMERICAN 64 mL/min (90-120)
[2020-02-24 04:01] LABS: CALC OSMOLALITY 278 mosm/kg (275-300); GLUCOSE 205 mg/dL (74-106)
[2020-02-24 04:37] VITALS: BP 130/80
--- NOTE | 2020-02-24 07:16 | NUR ---
LYING IN BED IN NO ACUTE DISTRESS. A&O X4. STATES NO NEEDS
[2020-02-24 08:29] VITALS: BP 121/78
[2020-02-24 08:50] LABS: UDS - AMPHET NEGATIVE QUAL (NEGATIVE); UDS - BARB NEGATIVE QUAL (NEGATIVE); UDS - BENZO NEGATIVE QUAL (NEGATIVE); UDS - COCAINE NEGATIVE QUAL (NEGATIVE); UDS - OPIATE POSITIVE QUAL (NEGATIVE); UDS - PCP NEGATIVE QUAL (NEGATIVE); UDS - THC NEGATIVE QUAL (NEGATIVE)
[2020-02-24 11:28] VITALS: BP 130/70
--- NOTE | 2020-02-24 13:41 | NUR ---
RESTING WITH EYES CLOSED. CALL LIGHT WITHIN REACH
[2020-02-24 15:45] VITALS: BP 130/59
--- NOTE | 2020-02-24 17:00 | NUR ---
LYING IN BED WITH EYES CLOSED. AROUSES EASILY. STATES NO NEEDS
[2020-02-24 20:00] VITALS: BP 154/91
[2020-02-25] VITALS: BP 136/81
[2020-02-25 04:00] VITALS: BP 137/73
[2020-02-25 06:30] LABS: BASOPHILS 0.1 % (0-2); EOSINOPHILS 1.1 % (0-7); HEMATOCRIT 34.6 % (36.0-48.0); HEMOGLOBIN 10.5 g/dL (12-16); IMMATURE GRANULOCYTES 0.4 % (0-5); LYMPHOCYTES 20.9 % (15-50); MCH 26.7 pg (26.0-34.0); MCHC 30.3 g/dL (31.0-37.0); MEAN PLATELET VOLUME 8.5 fL (7.4-10.4); MONOCYTES 6.1 % (2-11); NEUTROPHILS 71.4 % (40-80); PLATELET COUNT 467 10x3/uL (130-400); RBC 3.93 10x6/uL (4.00-5.40); RDW 14.1 % (11.5-14.5); WBC 14.2 10x3/uL (4.8-10.8)
[2020-02-25 06:33] LABS: CALCIUM 8.8 mg/dL (8.5-10.1); CARBON DIOXIDE 26.1 mmol/L (21.0-32.0); CHLORIDE - SERUM 102 mmol/L (98-107); POTASSIUM - SERUM 3.9 mmol/L (3.5-5.1); SODIUM 135 mmol/L (136-145); UREA NITROGEN 11 mg/dL (7-18)
[2020-02-25 06:42] LABS: CALC OSMOLALITY 278 mosm/kg (275-300); CREATININE - SERUM 0.7 mg/dL (0.6-1.3); GLUCOSE 270 mg/dL (74-106); eGFR NON AFRICAN AMERICAN > 90 mL/min (90-120)
[2020-02-25 09:00] VITALS: BP 126/76
[2020-02-25 12:00] VITALS: BP 140/65
[2020-02-25 14:29] VITALS: Ht 172.7 cm; Wt 117.3 kg
[2020-02-25 16:00] VITALS: BP 135/77
[2020-02-25 20:00] VITALS: BP 115/67
[2020-02-26 04:00] VITALS: BP 122/52; BP 138/87
[2020-02-26 05:44] LABS: BASOPHILS 0.2 % (0-2); EOSINOPHILS 1.3 % (0-7); HEMATOCRIT 31.5 % (36.0-48.0); HEMOGLOBIN 9.6 g/dL (12-16); IMMATURE GRANULOCYTES 0.2 % (0-5); MCHC 30.5 g/dL (31.0-37.0); MCV 88.5 fL (80.0-100.0); MEAN PLATELET VOLUME 8.6 fL (7.4-10.4); MONOCYTES 6.2 % (2-11); NEUTROPHILS 64.1 % (40-80); PLATELET COUNT 427 10x3/uL (130-400); RBC 3.56 10x6/uL (4.00-5.40); RDW 14.2 % (11.5-14.5); WBC 12.2 10x3/uL (4.8-10.8)
[2020-02-26 06:24] LABS: ANION GAP 10.9 mmol/L (8-16); CALCIUM 8.9 mg/dL (8.5-10.1); CARBON DIOXIDE 25.3 mmol/L (21.0-32.0); POTASSIUM - SERUM 4.2 mmol/L (3.5-5.1)
[2020-02-26 06:34] LABS: CREATININE - SERUM 0.9 mg/dL (0.6-1.3)
[2020-02-26 09:23] VITALS: BP 137/75
--- NOTE | 2020-02-26 10:16 | NUR ---
URINE SPECIMEN COLLECTED AND TAKEN TO LAB.
--- NOTE | 2020-02-26 13:04 | NUR ---
IV AND TELEMETRY DCD. DC PLANS GIVEN. UNDERSTANDING VOICED. ESCORTED TO CAR BY W/C.
--- NOTE | 2020-03-01 12:00 | MORECARE ---
CASE MANAGEMENT DISCHARGE SUMMARY PATIENT: MARCI DUENAS UNIT: [id number] ADM DATE: 02/24/20 AGE: 44 : [birth year] SEX: F [facility] AUTHOR: MARYAM EDUARDO PHYSICIAN: REFERRING PHYSICIAN: PEEWEE WILDE MD DATE OF SERVICE: 03/01/20 Discharge Plan Patient Name: MARCI DUENAS Facility: [facility]:[place] : 1975 Planned Disposition: Anticipated Discharge Date: Discharge Date: 02/26/2020 Expected LOS: 0 Initial Reviewer: [email or web address] Initial Review Date: 03/01/2020 Generated: 03/01/20 12:59 pm Patient Name: MARCI DUENAS Page 83827 at 1200 All edits/amendments must be made on the electronic document DICTATION DATE: 03/01/20 1159 DIGITAL IMAGING TECHNICIAN: JARRET 03/01/20 1159 RPT#: [id number] DC DATE:02/26/20 STATUS: DIS IN [facility] [address] [facility] [place] [address] END OF REPORT
== END 2020-02-26 13:05 | disposition home or self-care (01) | DRG 760 ==
LOC: D.ER 06:38 → D.WS 10:22 → OBSVTIME 10:22 → D.M2 10:22 → D.WS 10:22 → D.M2 15:53
PROVIDERS: Family Medicine; ADMIT Internal Medicine Nephrology; ATTEND Internal Medicine Nephrology
DX: N93.8 Other specified abnormal uterine and vaginal bleeding (principal); E87.1 Hypo-osmolality and hyponatremia; I69.354 Hemiplegia and hemiparesis following cerebral infarction affecting left non-dominant side; N39.0 Urinary tract infection, site not specified; D62 Acute posthemorrhagic anemia; D50.9 Iron deficiency anemia, unspecified; D25.9 Leiomyoma of uterus, unspecified; I25.10 Atherosclerotic heart disease of native coronary artery without angina pectoris; I10 Essential (primary) hypertension; E11.40 Type 2 diabetes mellitus with diabetic neuropathy, unspecified; K59.00 Constipation, unspecified; F41.8 Other specified anxiety disorders; R00.0 Tachycardia, unspecified

== ENCOUNTER 2020-03-08 22:10 | Inpatient (IN) | payer MEDICAID ==
[~2020-03-08] VITALS: Ht 172.7 cm; Wt 120.1 kg
[2020-03-08] MEDS ORDERED: ATIVAN0.5 MG PO (22:21)
[2020-03-08] MEDS ORDERED: GABAPENTIN100 MG PO (22:21)
[2020-03-08] MEDS ORDERED: CYCLOBENZAPRINE10 MG PO (22:23)
[2020-03-08] MEDS ORDERED: HYDROCODON-ACE1 EAC2 PO (22:23)
[2020-03-08 22:30] VITALS: BP 164/85
[2020-03-08 22:52] LABS: BILIRUBIN NEGATIVE (NEGATIVE); GLUCOSE 1000 mg/dL (NEGATIVE); KETONE SMALL mg/dL (NEGATIVE); NITRITE NEGATIVE (NEGATIVE); UROBILINOGEN NORMAL (NORMAL)
[2020-03-08 22:53] LABS: EPITHELIAL CELLS OCC /hpf (0-5); RED CELLS - URINE 0-5 /hpf (0-5); WHITE CELLS - URINE OCC /hpf (NEGATIVE)
[2020-03-08 23:00] VITALS: BP 143/84
[2020-03-08 23:13] LABS: BASOPHILS 0.1 % (0-2); EOSINOPHILS 0 % (0-7); HEMATOCRIT 38.2 % (36.0-48.0); HEMOGLOBIN 11.5 g/dL (12-16); IMMATURE GRANULOCYTES 0.3 % (0-5); LYMPHOCYTES 12.5 % (15-50); MCH 26.7 pg (26.0-34.0); MCHC 30.1 g/dL (31.0-37.0); MCV 88.6 fL (80.0-100.0); MEAN PLATELET VOLUME 9.7 fL (7.4-10.4); MONOCYTES 1.3 % (2-11); NEUTROPHILS 85.8 % (40-80); PLATELET COUNT 456 10x3/uL (130-400); RBC 4.31 10x6/uL (4.00-5.40); RDW 14.9 % (11.5-14.5); WBC 15.9 10x3/uL (4.8-10.8)
[2020-03-08 23:30] VITALS: BP 170/94
[2020-03-08 23:38] LABS: ALBUMIN 3.6 g/dL (3.4-5.0); ANION GAP 18.2 mmol/L (8-16); BILIRUBIN - TOTAL 0.21 mg/dL (0.2-1.3); CALCIUM 8.8 mg/dL (8.5-10.1); CARBON DIOXIDE 18.6 mmol/L (21.0-32.0); CREATININE - SERUM 1.5 mg/dL (0.6-1.3); MAGNESIUM - SERUM 1.8 mg/dL (1.8-2.4); POTASSIUM - SERUM 3.8 mmol/L (3.5-5.1); PROTEIN - SERUM 8.3 g/dL (6.4-8.2); THYROID STIMULATING HORMONE 0.88 uIU/mL (0.36-3.74); TROPONIN-I 0.044 ng/mL (0.000-0.060)
[2020-03-08 23:47] LABS: APTT 22.8 SECONDS (22.8-39.4)
[2020-03-08 23:48] LABS: D-DIMER-QUANTITATIVE 1.94 ug/mLFEU (0.20-0.54)
[2020-03-09] VITALS (27 sets, daily range): BP systolic 109–167; BP diastolic 56–88; Ht 172.7 cm; Wt 120.1 kg
--- NOTE | 2020-03-09 02:15 | NUR ---
FSBS 391
--- NOTE | 2020-03-09 03:30 | NUR ---
CALLED FSBS OF 423 TO [employer]. RECEIVED ORDER TO TRANSFER PT TO ICU FOR DKA. CALLED DERMATOLOGIST TO ADVISE...AWAITING A BED ASSIGNMENT.
--- NOTE | 2020-03-09 04:28 | NUR ---
PT RECIEVED FROM THE FLOOR DUE TO REQUIRING ICU MONITORING AND STARTING ON INSULIN INFUSION. PT AAOX4 AND ASSISTED TO BED, PT PLACED ON MONITOR
[2020-03-09 04:42] LABS: BASOPHILS 0.1 % (0-2); EOSINOPHILS 0 % (0-7); HEMATOCRIT 37.1 % (36.0-48.0); HEMOGLOBIN 11.4 g/dL (12-16); IMMATURE GRANULOCYTES 0.3 % (0-5); LYMPHOCYTES 9.6 % (15-50); MCH 26.7 pg (26.0-34.0); MCHC 30.7 g/dL (31.0-37.0); MCV 86.9 fL (80.0-100.0); MEAN PLATELET VOLUME 9.5 fL (7.4-10.4); MONOCYTES 3.9 % (2-11); NEUTROPHILS 86.1 % (40-80); RBC 4.27 10x6/uL (4.00-5.40); RDW 15.1 % (11.5-14.5); WBC 14.8 10x3/uL (4.8-10.8)
[2020-03-09 04:47] LABS: INR 1.04 (0.85-1.17); PLATELET COUNT 358 10x3/uL (130-400); PROTIME 13.6 SECONDS (11.6-15.0)
[2020-03-09 04:56] LABS: ANION GAP 16.2 mmol/L (8-16); CALCIUM 9.3 mg/dL (8.5-10.1); CARBON DIOXIDE 21.2 mmol/L (21.0-32.0); MAGNESIUM - SERUM 1.9 mg/dL (1.8-2.4); PHOSPHOROUS 2.7 mg/dL (2.5-4.9)
--- NOTE | 2020-03-09 05:00 | NUR ---
Patient resting in bed with eyes closed, respirations even nonlabored. Vital signs stable at this time, will monitor for changes.
[2020-03-09 05:09] LABS: POTASSIUM - SERUM 4.4 mmol/L (3.5-5.1)
[2020-03-09 11:44] LABS: ANION GAP 18.3 mmol/L (8-16); CALCIUM 8.7 mg/dL (8.5-10.1); CARBON DIOXIDE 18.5 mmol/L (21.0-32.0); CREATININE - SERUM 0.9 mg/dL (0.6-1.3); POTASSIUM - SERUM 4.8 mmol/L (3.5-5.1)
--- NOTE | 2020-03-09 19:00 | NUR ---
Report received from the off going RN. Patient lying in bed with no signs or symptoms of distress noted. Vital signs stable. Denies pain or needs at this time. Continue DKA insulin protocol. Call light in reach will continue plan of care.
[2020-03-09 19:43] LABS: CALCIUM 8.4 mg/dL (8.5-10.1)
[2020-03-09 19:44] LABS: ANION GAP 9.7 mmol/L (8-16); CARBON DIOXIDE 26.2 mmol/L (21.0-32.0); POTASSIUM - SERUM 3.9 mmol/L (3.5-5.1)
--- NOTE | 2020-03-09 21:00 | NUR ---
Spoke with Aubrey AYERS about labs and anion gap closed. Updated on insulin drip and IV fluids. See orders. We will continue plan of care.
--- NOTE | 2020-03-09 23:00 | NUR ---
REASSESSMENT COMPLETED. SEE FLOW SHEET. WILL CONT POC.
[2020-03-10] VITALS (14 sets, daily range): BP systolic 101–166; BP diastolic 47–78
[2020-03-10 00:46] LABS: ANION GAP 12.2 mmol/L (8-16); CALCIUM 8.2 mg/dL (8.5-10.1); CARBON DIOXIDE 22.7 mmol/L (21.0-32.0); POTASSIUM - SERUM 3.9 mmol/L (3.5-5.1)
--- NOTE | 2020-03-10 02:09 | NUR ---
SUPPLYS PROVIDED FOR THE PT AND THE PT GAVE HERSELF WITH A CHD BATH. FRESH LINENS PROVIDED. PT DENIES ANY OTHER NEEDS AT THIS TIME. WILL CONT POC.
--- NOTE | 2020-03-10 03:00 | NUR ---
REASSESSMENT COMPLETED. SEE FLOW SHEET. CALL LIGTH IN REACH. WILL CONT POC.
[2020-03-10 05:23] LABS: BASOPHILS 0.1 % (0-2); EOSINOPHILS 0.3 % (0-7); HEMATOCRIT 30.8 % (36.0-48.0); HEMOGLOBIN 9.3 g/dL (12-16); IMMATURE GRANULOCYTES 0.3 % (0-5); LYMPHOCYTES 25.9 % (15-50); MCH 26.4 pg (26.0-34.0); MCHC 30.2 g/dL (31.0-37.0); MCV 87.5 fL (80.0-100.0); MEAN PLATELET VOLUME 8.8 fL (7.4-10.4); MONOCYTES 5.5 % (2-11); NEUTROPHILS 67.9 % (40-80); PLATELET COUNT 346 10x3/uL (130-400); RBC 3.52 10x6/uL (4.00-5.40); RDW 15.5 % (11.5-14.5); WBC 15.5 10x3/uL (4.8-10.8)
[2020-03-10 06:01] LABS: ANION GAP 11.7 mmol/L (8-16); CALCIUM 8.3 mg/dL (8.5-10.1); CARBON DIOXIDE 25.2 mmol/L (21.0-32.0); CREATININE - SERUM 0.9 mg/dL (0.6-1.3); MAGNESIUM - SERUM 1.7 mg/dL (1.8-2.4); PHOSPHOROUS 2.7 mg/dL (2.5-4.9); POTASSIUM - SERUM 3.9 mmol/L (3.5-5.1)
--- NOTE | 2020-03-10 07:00 | NUR ---
RECEIVED BEDSIDE REPORT ON PATIENT AND ASSUMED CARE. PATIENT RESTING QUIETLY, EASILY AROUSED BY VOICE, VSS. ALERT AND ORIENTED X 4. IV 14 GA TO LEFT AC INFUSING NS AT 75 ML/HR WITH NO S/S OF INFILTRATION. CM - NSR RATE 61, RR - 18, BBS - CLEAR AND EQUAL WITH SPO2 - 99% ON RA. HEAD TO TOE ASSESSMENT COMPLETED.
--- NOTE | 2020-03-10 07:45 | NUR ---
FSBS - 123 MG/DL, NO INSULIN PER SLIDING SCALE. GIVEN BREAKFAST TRAY.
--- NOTE | 2020-03-10 08:30 | NUR ---
MAG 1.7, GIVEN IVPB MAG 2 GM PER ORDER. PATIENT ATE 100% OF BREAKFAST. NO NEEDS AT THIS TIME.
--- NOTE | 2020-03-10 09:18 | NUR ---
PATIENT RESTING QUIETLY, VSS.
--- NOTE | 2020-03-10 10:21 | NUR ---
Nutrition Follow-up: Pt sleeping soundly this AM; RD did not disturb. Nursing reports pt ate 100% of breakfast and Glu better controlled (POC 123). Diet: Diabetic PO intake: 50-100% Wt: 264# (03/10); 262.3# (03/09) Labs noted: Glu 157, Ca 8.3, Mg 1.7 Meds noted: Lantus, Protonix, Glucotrol, Humulin, NS @ 75, electrolyte protocol -Encourage PO intake and honor food preferences within diet restrictions. -Will attempt to reinforce diabetic diet education prior to d/c. -Monitor wt. -RD following.
--- NOTE | 2020-03-10 10:45 | NUR ---
PATIENT REPORT CALLED TO [facility] ON [facility], TRANSPORTED TO ROOM 2206 VIA WHEELCHAIR.
--- NOTE | 2020-03-10 11:00 | NUR ---
ARRIVES TO UNIT PER WC, CONT TO MONITOR SUGARS, IV TO LAC, NO REDNESS AT SITED, ALERT AND O,
--- NOTE | 2020-03-10 20:43 | MORECARE ---
CASE MANAGEMENT DISCHARGE SUMMARY PATIENT: MARCI DUENAS UNIT: [id number] ADM DATE: 03/09/20 AGE: 44 : 76 SEX: F ROOM/BED: D.2206 AUTHOR: MARYAM EDUARDO PHYSICIAN: REFERRING PHYSICIAN: PEEWEE WILDE MD DATE OF SERVICE: 03/10/20 Discharge Plan Patient Name: MARCI DUENAS Facility: [facility]:[place] : 1975 Planned Disposition: Home Anticipated Discharge Date: Discharge Date: Expected LOS: Initial Reviewer: [email or web address] Initial Review Date: 03/09/2020 Generated: 03/10/20 9:42 pm Patient Name: MARCI DUENAS Page 86075 at 2043 All edits/amendments must be made on the electronic document DICTATION DATE: 03/10/202041 CADDIE: JARRET 03/10/202041 RPT#: [id number] DC DATE: STATUS: ADM IN [facility] [address] [place] [address] END OF REPORT
--- NOTE | 2020-03-10 20:49 | MORECARE ---
CASE MANAGEMENT DISCHARGE SUMMARY PATIENT: MARCI DUENAS UNIT: [id number] ADM DATE: 03/09/20 AGE: 44 : 76 SEX: F ROOM/BED: D.2206 AUTHOR: MARYAM EDUARDO PHYSICIAN: REFERRING PHYSICIAN: PEEWEE WILDE MD DATE OF SERVICE: 03/10/20 Discharge Plan Patient Name: MARCI DUENAS Facility: [facility]:[place] : 1975 Planned Disposition: Home Anticipated Discharge Date: Discharge Date: Expected LOS: Initial Reviewer: [email or web address] Initial Review Date: 03/09/2020 Generated: 03/10/20 9:49 pm DCPIA - Discharge Planning Initial Assessment Updated by [email or web address]: Ellen Melchor on 03/10/20 8:44 pm * Is the patient Alert and Oriented? Yes * How many steps to enter\exit or inside your home? * [facility] * Pharmacy [facility] * Preadmission Environment Home with Family * ADLs Independent * Equipment Glucometer * List name and contact numbers for known caregivers / representatives who currently or will assist patient after discharge: BENNY MARK [phone] DIANE ROBLEDO - [phone] * Verbal permission to speak to the caregivers and representatives has been obtained from the patient. Yes * Community resources currently utilized None * Additional services required to return to the preadmission environment? No * Can the patient safely return to the preadmission environment? Yes * Has this patient been hospitalized within the prior 30 days at any hospital? Yes Last DP export: 03/10/20 7:43 p Patient Name: MARCI DUENAS Page 20956 at 204 All edits/amendments must be made on the electronic document DICTATION DATE: 03/10/202048 HOSPITAL INTERNSHIP: JARRET 03/10/202048 RPT#: [id number] DC DATE: STATUS: ADM IN [facility] [address] [place] [address] END OF REPORT
--- NOTE | 2020-03-10 20:56 | MORECARE ---
CASE MANAGEMENT DISCHARGE SUMMARY PATIENT: MARCI DUENAS UNIT: [id number] ADM DATE: 03/09/20 AGE: 44 : 77 SEX: F ROOM/BED: D.2206 AUTHOR: ALESHA,DOC PHYSICIAN: REFERRING PHYSICIAN: PEEWEE WILDE MD DATE OF SERVICE: 03/10/20 Discharge Plan Patient Name: MARCI DUENAS Facility: [facility]:[place] : 1975 Planned Disposition: Home Anticipated Discharge Date: Discharge Date: Expected LOS: Initial Reviewer: [email or web address] Initial Review Date: 03/09/2020 Generated: 03/10/20 9:55 pm Comments DCP- Discharge Planning Updated by [email or web address]: Ellen Melchor on 03/10/20 7:[address] Patient Name: MARCI DUENAS Admission Status: ER Accout number: [id number] Admission Date: 03-09-2020 : 1975 Admission Diagnosis: Attending: PEEWEE WILDE Current LOS: 1 Anticipated DC Date: Planned Disposition: Home Primary Insurance: MEDICAID [place] Discharge Planning Comments: CM met with patient to complete initial dc planning assessment. CM educated patient on the CM role and verbal consent given by patient to complete assessment. Patient lives at home with her three children where she is independent with her care. At discharge patient plans to return home and feels this is a safe discharge. CM discussed availability of home health, rehab services, and medical equipment. Patient states that she has a glucometer but doesn't have a way to check her blood pressure. Patient was questioning if she would qualify for Mom's Meals. CM isn't familiar with this program. Patient stated she would look it up online. CM gave patient information on physicians that service this [facility] per patient's request. Patient denied known discharge needs at this time. CM will continue to follow and will assist as needed with dc plans/needs. Work Ticket Distributor: Ellen Melchor DCPIA - Discharge Planning Initial Assessment Updated by [email or web address]: Ellen Melchor on 03/10/20 8:44 pm * Is the patient Alert and Oriented? Yes * How many steps to enter\exit or inside your home? * [facility] * [facility] * Preadmission Environment Home with Family * ADLs Independent * Equipment Glucometer * List name and contact numbers for known caregivers / representatives who currently or will assist patient after discharge: BENNY FLORES -[phone] DIANE ROBLEDO - [phone] * Verbal permission to speak to the caregivers and representatives has been obtained from the patient. Yes * Community resources currently utilized None * Additional services required to return to the preadmission environment? No * Can the patient safely return to the preadmission environment? Yes * Has this patient been hospitalized within the prior 30 days at any hospital? Yes Last DP export: 03/10/20 7:49 p Patient Name: MARCI DUENAS Page 14186 at 2056 All edits/amendments must be made on the electronic document DICTATION DATE: 03/10/202054 FOREST PATROLMAN: JARRET 03/10/202054 RPT#: [id number] DC DATE: STATUS: ADM IN [facility] [address] [place] [address] END OF REPORT
[2020-03-11] VITALS: BP 140/72
--- NOTE | 2020-03-11 00:11 | NUR ---
PT LYINIG IN BED AWAKE ALERT AND ORIENTED x4. NO SIGNS OF DISTRESS NOTED. RESPIRATIONS EVEN AND UNLABORED. PT C/O PAIN TO ABDOMAN. PRN PAIN MEDIATION GIVEN. PT TOLERATED WELL. CALL LIGHT AND OTHER PERSONAL ITEMS WITH IN REACH. WILL CONTINUE TO MONITOR
--- NOTE | 2020-03-11 02:56 | NUR ---
I have reviewed this patient and I concur with the Shift Assessment completed by the Licensed Practical Nurse today this shift.
[2020-03-11 04:00] VITALS: BP 123/63
[2020-03-11 05:37] LABS: BASOPHILS 0.2 % (0-2); EOSINOPHILS 1.4 % (0-7); HEMATOCRIT 31.4 % (36.0-48.0); HEMOGLOBIN 9.5 g/dL (12-16); IMMATURE GRANULOCYTES 0.2 % (0-5); MCH 26.2 pg (26.0-34.0); MCHC 30.3 g/dL (31.0-37.0); MCV 86.7 fL (80.0-100.0); MONOCYTES 7.3 % (2-11); NEUTROPHILS 60.9 % (40-80); PLATELET COUNT 386 10x3/uL (130-400); RBC 3.62 10x6/uL (4.00-5.40); RDW 15.3 % (11.5-14.5); WBC 12.1 10x3/uL (4.8-10.8)
[2020-03-11 06:12] LABS: CALCIUM 8.2 mg/dL (8.5-10.1); CARBON DIOXIDE 25.5 mmol/L (21.0-32.0); CREATININE - SERUM 0.9 mg/dL (0.6-1.3); POTASSIUM - SERUM 3.5 mmol/L (3.5-5.1)
--- NOTE | 2020-03-11 07:40 | NUR ---
PT C/O FEELING ANXIETY PRN MEDIACTION GIVEN. PT TOLERATED WELL. RESPIRATIONS EVEN AND UNLABORED. CALL LIGHT WITH IN REACH. PT STATES THAT SHE DOES HAVE SOME BLEEDING WHEN SHE URINATE FROM PREVIOUS SURGERY. NO FURTHER COMPLAINTS AT THIS TIME
[2020-03-11 08:30] VITALS: BP 127/64
--- NOTE | 2020-03-11 08:37 | NUR ---
SHE IS EATING BREAKFAST, ASKED FOR SOMETHING FOR PAIN. PRN GIVEN FOR PAIN. INSTRUCTED HER TO VOID IN THE "HAT" SHE STATES HER URINE IS STILL A LITTLE BLOODY FOR THE PRECEDURE SHE HAD DONE 2 DAYS AGO.
[2020-03-11] MEDS ORDERED: LANTUS INS100 UNITS/ SC (12:09)
[2020-03-11] MEDS ORDERED: HUMULIN R100 UNIT/1 SC (12:12)
[2020-03-11 12:25] VITALS: BP 134/65
--- NOTE | 2020-03-11 14:19 | MORECARE ---
CASE MANAGEMENT DISCHARGE SUMMARY PATIENT: MARCI DUENAS UNIT: [id number] ADM DATE: 03/09/20 AGE: 44 : 77 SEX: F ROOM/BED: D.2206 AUTHOR: ALESHA,DOC PHYSICIAN: REFERRING PHYSICIAN: PEEWEE WILDE MD DATE OF SERVICE: 03/11/20 Discharge Plan Patient Name: MARCI DUENAS Facility: [facility]:[place] : 1975 Planned Disposition: Home Anticipated Discharge Date: Discharge Date: Expected LOS: Initial Reviewer: [email or web address] Initial Review Date: 03/09/2020 Generated: 03/11/20 3:19 pm Comments DCP- Discharge Planning Updated by [email or web address]: Ellen Melchor on 03/10/20 7:[address] Patient Name: MARCI DUENAS Admission Status: ER Accout number: [id number] Admission Date: 03-09-2020 : 1975 Admission Diagnosis: Attending: PEEWEE WILDE Current LOS: 1 Anticipated DC Date: Planned Disposition: Home Primary Insurance: MEDICAID [place] Discharge Planning Comments: CM met with patient to complete initial dc planning assessment. CM educated patient on the CM role and verbal consent given by patient to complete assessment. Patient lives at home with her three children where she is independent with her care. At discharge patient plans to return home and feels this is a safe discharge. CM discussed availability of home health, rehab services, and medical equipment. Patient states that she has a glucometer but doesn't have a way to check her blood pressure. Patient was questioning if she would qualify for Mom's Meals. CM isn't familiar with this program. Patient stated she would look it up online. CM gave patient information on physicians that service this [facility] per patient's request. Patient denied known discharge needs at this time. CM will continue to follow and will assist as needed with dc plans/needs. Bow Maker Gift Wrapping: Ellen Melchor DCPIA - Discharge Planning Initial Assessment Updated by [email or web address]: Ellen Melchor on 03/10/20 8:44 pm * Is the patient Alert and Oriented? Yes * How many steps to enter\exit or inside your home? * [facility] * [facility] * Preadmission Environment Home with Family * ADLs Independent * Equipment Glucometer * List name and contact numbers for known caregivers / representatives who currently or will assist patient after discharge: BENNY FLORES -[phone] DIANE ROBLEDO - [phone] * Verbal permission to speak to the caregivers and representatives has been obtained from the patient. Yes * Community resources currently utilized None * Additional services required to return to the preadmission environment? No * Can the patient safely return to the preadmission environment? Yes * Has this patient been hospitalized within the prior 30 days at any hospital? Yes External Providers External Provider: [facility] Next Contact Date: Service Request Date: Service Type: Resolution: Reviewer: Comments: Last DP export: 03/10/20 7:56 p Patient Name: MARCI DUENAS Page 94869 at 1419 All edits/amendments must be made on the electronic document DICTATION DATE: 03/11/201418 TOOL SHARPENER: JARRET 03/11/201418 RPT#: [id number] DC DATE: STATUS: ADM IN [facility] [address] [place] [address] END OF REPORT
--- NOTE | 2020-03-11 14:28 | MORECARE ---
CASE MANAGEMENT DISCHARGE SUMMARY PATIENT: MARCI DUENAS UNIT: [id number] ADM DATE: 03/09/20 AGE: 44 : 77 SEX: F ROOM/BED: D.2206 AUTHOR: ALESHADOC PHYSICIAN: REFERRING PHYSICIAN: PEEWEE WILDE MD DATE OF SERVICE: 03/11/20 Discharge Plan Patient Name: MARCI DUENAS Facility: [facility]:[place] : 1975 Planned Disposition: Home Anticipated Discharge Date: Discharge Date: Expected LOS: Initial Reviewer: [email or web address] Initial Review Date: 03/09/2020 Generated: 03/11/20 3:27 pm Comments DCP- Discharge Planning Updated by [email or web address]: Dora Kayleen on 03/11/20 1:[address] SPOKE WITH PATIENT ABOUT [employer]OM[employer] AND HOME HEALTH. SHE SIGNED THE JENNIFER FOR [facility]. I WAS UNABLE TO GET THROUGH TO [facility] TO SEE IF SHE WOULD QUALIFY. I DID SPEAK WITH [employer] AND THEY DO ACCEPT HER INSURANCE. AND SAID THAT SHE WOULD NEED TO GO HER INSURANCE TO GET AUTH. I HAVE EXPLAINED ALL OF THIS TO HER AND SHE KNOW WHERES THE [facility] OFFICE IS AND WILL INQUIRE ABOUT GETTING APPROVED. I HAVE SENT HER HOME WITH THE INFORMATION PACKET TO HELP HER. CM WILL CONTINUE TO FOLLOW AND ASSIST. HER DAUGHTER WILL BE DRIVING HER HOME AND SHE FEELS SAFE. DCP- Discharge Planning Updated by [email or web address]: Ellen Melchor on 03/10/20 7:[address] Patient Name: MARCI DUENAS Admission Status: ER Accout number: [id number] Admission Date: 03-09-2020 : 1975 Admission Diagnosis: Attending: PEEWEE WILDE Current LOS: 1 Anticipated DC Date: Planned Disposition: Home Primary Insurance: MEDICAID [place] Discharge Planning Comments: CM met with patient to complete initial dc planning assessment. CM educated patient on the CM role and verbal consent given by patient to complete assessment. Patient lives at home with her three children where she is independent with her care. At discharge patient plans to return home and feels this is a safe discharge. CM discussed availability of home health, rehab services, and medical equipment. Patient states that she has a glucometer but doesn't have a way to check her blood pressure. Patient was questioning if she would qualify for Mom's Meals. CM isn't familiar with this program. Patient stated she would look it up online. CM gave patient information on physicians that service this hospital per patient's request. Patient denied known discharge needs at this time. CM will continue to follow and will assist as needed with dc plans/needs. Manager Retail Store: Ellen Melchor DCPIA - Discharge Planning Initial Assessment Updated by [email or web address]: Ellen Melchor on 03/10/20 8:44 pm * Is the patient Alert and Oriented? Yes * How many steps to enter\exit or inside your home? * [facility] * [facility] * Preadmission Environment Home with Family * ADLs Independent * Equipment Glucometer * List name and contact numbers for known caregivers / representatives who currently or will assist patient after discharge: BENNY MARK -[phone] DIANE ROBLEDO - [phone] * Verbal permission to speak to the caregivers and representatives has been obtained from the patient. Yes * Community resources currently utilized None * Additional services required to return to the preadmission environment? No * Can the patient safely return to the preadmission environment? Yes * Has this patient been hospitalized within the prior 30 days at any hospital? Yes Last DP export: 03/11/20 1:19 p Patient Name: MARCI DUENAS Page 18548 at 1428 All edits/amendments must be made on the electronic document DICTATION DATE: 03/11/201426 KNOWLEDGE MANAGEMENT CONSULTANT: JARRET 03/11/201426 RPT#: [id number] DC DATE: STATUS: ADM IN [facility] [address] [place] [address] END OF REPORT
--- NOTE | 2020-03-11 16:33 | NUR ---
SHE MARLENE UP HER OWN INSULIN AND DID HER OWN FINGERSTICK. SHE INFECTED THE INSULIN INTO HER ABDOMEN. HER IV IS OUT. I WALKED WITH HER TO THE FRONT DOOR. HER RIDE WAS WAITING FOR HER THERE.
== END 2020-03-11 16:35 | disposition home health service (06) | DRG 638 ==
LOC: D.ER 22:10 → D.CVICU 03-09 02:00 → D.MS 03-09 02:00 → D.CVICU 03-09 04:27 → D.MS 03-10 11:08
PROVIDERS: Family Medicine; ADMIT Internal Medicine Nephrology; ATTEND Internal Medicine Nephrology
DX: E11.65 Type 2 diabetes mellitus with hyperglycemia (principal); I69.354 Hemiplegia and hemiparesis following cerebral infarction affecting left non-dominant side; E87.1 Hypo-osmolality and hyponatremia; D50.9 Iron deficiency anemia, unspecified; D25.9 Leiomyoma of uterus, unspecified; E11.40 Type 2 diabetes mellitus with diabetic neuropathy, unspecified; E66.01 Morbid (severe) obesity due to excess calories; Z68.39 Body mass index [BMI] 39.0-39.9, adult; I10 Essential (primary) hypertension; I25.10 Atherosclerotic heart disease of native coronary artery without angina pectoris

== ENCOUNTER 2020-07-31 16:58 | Emergency (ER) | payer MEDICAID ==
[~2020-07-31] VITALS: Ht 172.7 cm; Wt 113.6 kg
[~2020-07-31 16:58] MED LIST changes: +ATIVAN0.5 MG PO; +GABAPENTIN100 MG PO; +HUMULIN R100 UNIT/1 SC; +HYDROCODON-ACE1 EAC2 PO; +LANTUS INS100 UNITS/ SC
[2020-07-31 17:06] VITALS: Ht 172.7 cm; Wt 113.6 kg
[2020-07-31] MEDS ORDERED: ACETAMINOPHEN500 M1 PO (18:06)
[2020-07-31] MEDS ORDERED: IBUPROFEN800 MG PO (18:06)
[2020-07-31] MEDS ORDERED: CYCLOBENZAPRINE10 MG PO (18:06)
[2020-07-31 18:43] VITALS: BP 146/87
== END 2020-07-31 18:43 | disposition home or self-care (01) ==
LOC: D.ER 16:58
DX: S50.311A Abrasion of right elbow, initial encounter (principal); M79.18 Myalgia, other site; T14.8XXA Other injury of unspecified body region, initial encounter; S00.03XA Contusion of scalp, initial encounter; W07.XXXA Fall from chair, initial encounter; Y93.9 Activity, unspecified; Y92.9 Unspecified place or not applicable; Z86.73 Personal history of transient ischemic attack (TIA), and cerebral infarction without residual deficits; E11.40 Type 2 diabetes mellitus with diabetic neuropathy, unspecified; I25.2 Old myocardial infarction; I10 Essential (primary) hypertension; Z79.84 Long term (current) use of oral hypoglycemic drugs

== ENCOUNTER 2020-08-06 01:08 | Inpatient (IN) | payer MEDICAID ==
[~2020-08-06] VITALS: Ht 172.7 cm; Wt 122.7 kg
[2020-08-06] VITALS (9 sets, daily range): BP systolic 105–136; BP diastolic 38–77; Ht 172.7 cm; Wt 122.7 kg
--- NOTE | ~2020-08-06 | EC ---
PATIENT:MARCI DUENAS DATE OF SERVICE: 08/06/20 SEX: F MEDICAL RECORD: [id number] DATE OF : [birth year] LOCATION:D.M2 D.211 AGE OF PATIENT: 44 ADMISSION DATE: 08/06/20 REFERRING PHYSICIAN: INTERPRETING PHYSICIAN: EDMAR BUTLER MD ECHOCARDIOGRAM REPORT ECHO CHARGES 4 ECHO COMPLETE Date: 08/06/20 CLINICAL DIAGNOSIS: ELEVATED TROPONIN ECHOCARDIOGRAPHIC MEASUREMENTS (adult normal given) AC root (d.<3.7cm) 3.4 cm LV Septum d (<1.2 cm> 1.2 cm Valve Excursion 2.0 cm LV Septum (systole) 1.6 cm Left Atria (s.<4.0cm> 4.1 cm LVPW d(<1.2cm) 1.3 cm RV (d.<2.3cm) 4.0 cm LVPW (sytole) 1.5 cm LV diastole(<5.6CM) 4.4 cm MV E-F(>70mm/sec) cm LV systole 2.7 cm LVOT Diameter 2.1 cm MV exc.(>10mm) cm Est.ejection fraction (50-75%) % DOPPLER: LVIT cm/sec A 76 cm/sec E 90 cm/sec LA cm/sec RVSP 27 mmHg LVOT 102 cm/sec AOP1/2T m/s Asc. Ao 134 cm/sec RVOT 80 cm/sec RA cm/sec PA cm/sec AV Gradient Peak 7 mmHg AV Mean 3 mmHg AV Area 2.6 cm MV Gradient Peak 3 mmHg MV Mean 1 mmHg MV Area cm COMMENTS: Chief Engineer Waterworks: Edwardo ABRAHAM Fulfillment Coordinator: 3 Dr. Mcguire TAPE# Pericardial Effusion N DATE OF SERVICE: Adequate 2D, color flow imaging, spectral Doppler, and M-Mode. Borderline LVH. LV internal dimensions are normal. Wall motion is normal. EF is greater than or equal to 55%. Aortic valve is tricuspid. No evidence of stenosis by Doppler interrogation. Left atrium is upper limits of normal, mildly dilated at 4.1 cm. Mitral valve shows no prolapse. Trivial MR. Right-sided chambers are grossly normal. Trivial TR. ECHOCARDIOGRAM REPORT [id number] MARCI DUENAS TRANSINT:[id number] Voice Confirmation ID: [id number] DOCUMENT ID: [id number] EDMAR BUTLER MD CC: [id number] DICTATION DATE: 08/09/20 0928 PAN SHOVER: 08/09/20 1640 DIS IN 08/08/20 [facility] [address] [place] [id number]
[~2020-08-06 01:08] MED LIST changes: +ACETAMINOPHEN500 M1 PO; +IBUPROFEN800 MG PO
[2020-08-06 01:41] LABS: BASOPHILS 0.2 % (0-2); EOSINOPHILS 0.9 % (0-7); HEMATOCRIT 42.4 % (36.0-48.0); HEMOGLOBIN 13.9 g/dL (12-16); IMMATURE GRANULOCYTES 0.4 % (0-5); LYMPHOCYTES 28.1 % (15-50); MCH 29.1 pg (26.0-34.0); MCHC 32.8 g/dL (31.0-37.0); MCV 88.7 fL (80.0-100.0); MEAN PLATELET VOLUME 9.6 fL (7.4-10.4); MONOCYTES 6.3 % (2-11); NEUTROPHILS 64.1 % (40-80); PLATELET COUNT 355 10x3/uL (130-400); RBC 4.78 10x6/uL (4.00-5.40); RDW 13.5 % (11.5-14.5); WBC 11.1 10x3/uL (4.8-10.8)
[2020-08-06 01:45] LABS: APTT 24.2 SECONDS (22.8-39.4); INR 0.99 (0.85-1.17); PROTIME 13.1 SECONDS (11.6-15.0)
[2020-08-06 01:47] LABS: CALC OSMOLALITY 290 mosm/kg (275-300); CALCIUM 9.6 mg/dL (8.5-10.1); CARBON DIOXIDE 31.6 mmol/L (21.0-32.0); CHLORIDE - SERUM 97 mmol/L (98-107); CREATININE - SERUM 1.4 mg/dL (0.6-1.3); POTASSIUM - SERUM 3.5 mmol/L (3.5-5.1); SODIUM 137 mmol/L (136-145); UREA NITROGEN 19 mg/dL (7-18); eGFR NON AFRICAN AMERICAN 43 mL/min (90-120)
[2020-08-06 01:49] LABS: GLUCOSE 367 mg/dL (74-106)
[2020-08-06 02:04] LABS: ALBUMIN 3.8 g/dL (3.4-5.0); ALKALINE PHOSPHATASE 126 U/L (30-120); ALT (SGPT) 19 U/L (10-68); BILIRUBIN - TOTAL 0.25 mg/dL (0.2-1.3); CKMB 1.4 U/L (0.0-3.6); CREATINE KINASE 221 UL (21-215); PROTEIN - SERUM 8.6 g/dL (6.4-8.2)
[2020-08-06 02:11] LABS: TROPONIN-I 0.098 ng/mL (0.000-0.060)
--- NOTE | 2020-08-06 02:21 | NUR ---
PT GIVEN BLANKETS AND HEAD OF BED ADJUSTED TO LEVEL OF COMFORT. DENIES FURTHER NEEDS, PT ON CARDIAC MONTIOR AND CALL LIGHT WITHIN REACH.
--- NOTE | 2020-08-06 03:45 | NUR ---
COVID SWAB TAKEN TO LAB
--- NOTE | 2020-08-06 03:48 | NUR ---
PT SALES TECHNICIAN LIGHT, STATES SHE NEEDS TO USE RESTROOM. PT UNHOOKED FROM MONITOR AND AMBULATED TO RESTROOM INDEPENDENTLY WITH A STEADY GAIT. URINE SPECIMEN SENT TO LAB.
--- NOTE | 2020-08-06 04:02 | NUR ---
PT STATES SHE IS FEELING NAUSEOUS, ORDERED PRN NAUSEA MEDICATION GIVEN. PT DENIES FURTHER NEEDS AT THIS TIME. PT ON MONITOR. CALL LIGHT IN REACH.
[2020-08-06 04:19] LABS: BILIRUBIN NEGATIVE (NEGATIVE); KETONE NEGATIVE (NEGATIVE); NITRITE NEGATIVE (NEGATIVE); UROBILINOGEN NORMAL mg/dL (< 2)
[2020-08-06 04:30] LABS: UDS - AMPHET NEGATIVE QUAL (NEGATIVE); UDS - BARB NEGATIVE QUAL (NEGATIVE); UDS - BENZO NEGATIVE QUAL (NEGATIVE); UDS - COCAINE NEGATIVE QUAL (NEGATIVE); UDS - OPIATE NEGATIVE QUAL (NEGATIVE); UDS - PCP NEGATIVE QUAL (NEGATIVE); UDS - THC NEGATIVE QUAL (NEGATIVE)
[2020-08-06 07:53] LABS: CREATINE KINASE 161 UL (21-215)
--- NOTE | 2020-08-06 07:56 | NUR ---
BREAKFAST MEAL TRAY PROVIDED.
[2020-08-06 07:58] LABS: TROPONIN-I 0.089 ng/mL (0.000-0.060)
--- NOTE | 2020-08-06 08:33 | NUR ---
DR. BOCANEGRA AT BEDSIDE
--- NOTE | 2020-08-06 12:03 | NUR ---
FSBS 332
[2020-08-06 15:46] LABS: CKMB 1.3 U/L (0.0-3.6); CREATINE KINASE 158 UL (21-215)
[2020-08-06 15:47] LABS: TROPONIN-I 0.101 ng/mL (0.000-0.060)
--- NOTE | 2020-08-06 19:00 | NUR ---
REPORT TO ANITA WILLARD
--- NOTE | 2020-08-06 19:37 | NUR ---
FSBS 221. PT GIVEN 4 UNITS REGULAR INSULIN SC PER SLIDING SCALE AND MEAL TRAY. DENIES FURTHER NEEDS. CALL LIGHT IN REACH.
[2020-08-06 22:48] LABS: CKMB 1.4 U/L (0.0-3.6); CREATINE KINASE 149 UL (21-215)
[2020-08-06 22:49] LABS: TROPONIN-I 0.117 ng/mL (0.000-0.060)
[2020-08-07 05:00] VITALS: BP 120/98
--- NOTE | 2020-08-07 07:00 | NUR ---
RECEIVED REPORT. ASSUMED CARE OF PATIENT. PATIENT RESTING WELL WITH EYES CLOSED, EASILY AROUSED. RESP EVEN AND UNLABORED. PATIENT REMAINS SR ON TELEMETRY, RATE OF 96. CALL LIGHT WITHIN REACH. NO DISTRESS. DENIES ANY CHEST PAIN AT THIS TIME BUT REQUESTING SLEEP AID.
[2020-08-07 10:53] VITALS: BP 144/85
--- NOTE | 2020-08-07 11:35 | NUR ---
FSBS 325. 8 UNITS HUMULIN ADMINISTERED PER SLIDING SCALE.
--- NOTE | 2020-08-07 15:27 | NUR ---
TELEMETRY REAPPLIED AT THIS TIME. PATIENT SHOWER AND LINEN CHANGE COMPLETED. DIET LEMON CHEVAK PROVIDED.
[2020-08-07 16:35] VITALS: BP 135/102
--- NOTE | 2020-08-07 17:13 | NUR ---
FSBS 334. 8 UNITS HUMULIN ADMINISTERED PER SLIDING SCALE.
[2020-08-07 20:30] VITALS: BP 132/76; BP 135/75
--- NOTE | 2020-08-08 00:16 | NUR ---
PT RESTING WITH EYES CLOSED. RESP EVEN AND REGULAR. SR UP X1, CALL LIGHT WITHIN REACH.
--- NOTE | 2020-08-08 02:11 | NUR ---
PT RESTING WITH EYES CLOSED. RESP EVEN AND REGULAR. CALL LIGHT WITHIN REACH.
[2020-08-08 04:30] VITALS: BP 120/65
--- NOTE | 2020-08-08 04:32 | NUR ---
PT RESTING WITH EYES CLOSED. RESP EVEN AND REGULAR. CALL LIGHT WITHIN REACH.
--- NOTE | 2020-08-08 05:52 | NUR ---
VSS THROUGHOUT NIGHT. SR PER CM. PT RESTED WELL AFTER ATIVAN AN MELATONIN ADMINISTRATION. NEEDS MET; WILL CONTINUE TO MONITOR.
--- NOTE | 2020-08-08 07:00 | NUR ---
RECEIVED REPORT. ASSUMED CARE OF PATIENT. CALL LIGHT WITHIN REACH. PATIENT LYING IN BED WITH ATTENTION TOWARD CELLPHONE. NO DISTRESS. BEDSIDE SHIFT REPORT COMPLETE, WHITE BOARD UPDATED. PATIENT REMAINS SR ON TELEMETRY, RATE 78.
[2020-08-08 08:34] VITALS: BP 145/69
--- NOTE | 2020-08-08 11:27 | NUR ---
FSBS 393. 10 UNITS HUMULIN ADMINISTERED PER SLIDING SCALE.
[2020-08-08 12:11] VITALS: BP 134/78
--- NOTE | 2020-08-08 13:31 | NUR ---
TELEMETRY REMOVED AND RETURNED TO MANAGER INVESTMENT. 20 GAUGE IV REMOVED FROM RIGHT AC. CATHETER TIP INTACT. NO BLEEDING FROM SITE. 2X2 GAUZE APPLIED AND SECURED WITH BANDAID. DISCHARGE INSTRUCTIONS PROVIDED AT THIS TIME. PATIENT VERBALIZED UNDERSTANDING OF ALL INSTRUCTIONS PROVIDED. PATIENT NOW GETTING DRESSED AND IS AWAITING HER FAMILY ARRIVAL TO TAKE HER HOME.
--- NOTE | 2020-08-08 14:02 | NUR ---
PATIENT LEFT UNIT VIA WHEELCHAIR AT THIS TIME. PATIENT LEFT UNIT WITH ALL PERSONAL BELONGINGS. NO DISTRESS UPON LEAVING UNIT. DISCHARGED HOME WITH FAMILY.
--- NOTE | 2020-08-08 18:39 | MORECARE ---
CASE MANAGEMENT DISCHARGE SUMMARY PATIENT: MARCI DUENAS UNIT: [id number] ADM DATE: 08/06/20 AGE: 44 : 77 SEX: F ROOM/BED: D.8234 AUTHOR: ALESHA,DOC PHYSICIAN: REFERRING PHYSICIAN: KATHY DAVISON MD DATE OF SERVICE: 08/08/20 Discharge Plan Patient Name: MARCI DUENAS Facility: [facility]:[place] : 1975 Planned Disposition: Home with Home Health Anticipated Discharge Date: 08/08/20 Discharge Date: 08/08/2020 Expected LOS: 2 Initial Reviewer: [email or web address] Initial Review Date: 08/08/2020 Generated: 08/08/20 7:39 pm DCPIA - Discharge Planning Initial Assessment Updated by [email or web address]: Sterling Cardona on 08/08/20 6:37 pm * Is the patient Alert and Oriented? Yes * How many steps to enter\exit or inside your home? 3/0 * PCP Dr Rubin * Pharmacy [facility] * Preadmission Environment Home with Family * ADLs Independent * Equipment None * Other Equipment n/a * List name and contact numbers for known caregivers / representatives who currently or will assist patient after discharge: Kale Chou - [phone] friend * Verbal permission to speak to the caregivers and representatives has been obtained from the patient. No * Community resources currently utilized None * Please name any agencies selected above. n/a * Additional services required to return to the preadmission environment? Yes * Can the patient safely return to the preadmission environment? Yes * Has this patient been hospitalized within the prior 30 days at any hospital? No External Providers External Provider: [facility] [[email or web address] Next Contact Date: Service Request Date: Service Type: Resolution: Reviewer: Comments: Coverage Notice Reviewer: [id number] - Sterling Cardona Notice Issued Date-Time: 08/08/2020 12:29 Notice Type: Patient Choice Letter Notice Delivered To: Patient Relationship to Patient: Self Inductor Tester Name: Delivery Method: HAND - Hand Delivered Pao Days: Prior Verbal Notification: Recipient Understood Notice: Yes Recipient Signature: Yes Med Rec Note Co-signed by Attending: Coverage Notice Comment: [facility] Patient Name: MARCI DUENAS Page 34639 at 1839 All edits/amendments must be made on the electronic document DICTATION DATE: 08/08/201838 GROOVER OPERATOR: JARRET 08/08/201838 RPT#: [id number] DC DATE:08/08/20 STATUS: DIS IN [facility] [address] [place] [address] END OF REPORT
--- NOTE | 2020-08-08 18:46 | MORECARE ---
CASE MANAGEMENT DISCHARGE SUMMARY PATIENT: MARCI DUENAS UNIT: [id number] ADM DATE: 08/06/20 AGE: 44 : 77 SEX: F ROOM/BED: D.7020 AUTHOR: ALESHA,DOC PHYSICIAN: REFERRING PHYSICIAN: KATHY DAVISON MD DATE OF SERVICE: 08/08/20 Discharge Plan Patient Name: MARCI DUENAS Facility: [facility]:[place] : 1975 Planned Disposition: Home with Home Health Anticipated Discharge Date: 08/08/20 Discharge Date: 08/08/2020 Expected LOS: 2 Initial Reviewer: SHAYY Initial Review Date: 08/08/2020 Generated: 08/08/20 7:46 pm Comments DCP- Discharge Planning Updated by [id number]: Sterling Cardona on 08/08/20 5:[address] Patient Name: MARCI DUENAS Admission Status: ER Accout number: [id number] Admission Date: 08-06-2020 : 1975 Admission Diagnosis: Attending: MIHIR Current LOS: 2 Anticipated DC Date: 08-08-2020 Planned Disposition: Home with Home Health Primary Insurance: MEDICAID [place] Discharge Planning Comments: CM met with patient for DC planning. Patient is in agreement with DC Plan. Patient lives home with family. Patient has 3 steps to enter her home and she feels it is safe. PCP: Dr. Rubin. Pharmacy: [facility]. DME: NONE. Emergency contact: Kale Chou (Friend) [phone]. CM discussed HHS, OP Therapy, SNF, Rehab. Patient states she would like to continue HHS with [facility]. JENNIFER signed for same. Clinicals faxed to [facility]. Patient voices no other needs at this time. CM will follow and assist PRN. Recruitment Manager: Sterling Cardona DCPIA - Discharge Planning Initial Assessment Updated by [email or web address]: Sterling Cardona on 08/08/20 6:37 pm * Is the patient Alert and Oriented? Yes * How many steps to enter\exit or inside your home? 3/0 * PCP Dr Rubin * Pharmacy [facility] [address] * Preadmission Environment Home with Family * ADLs Independent * Equipment None * Other Equipment n/a * List name and contact numbers for known caregivers / representatives who currently or will assist patient after discharge: Kale Chou - [phone] friend * Verbal permission to speak to the caregivers and representatives has been obtained from the patient. No * Community resources currently utilized None * Please name any agencies selected above. n/a * Additional services required to return to the preadmission environment? Yes * Can the patient safely return to the preadmission environment? Yes * Has this patient been hospitalized within the prior 30 days at any hospital? No Coverage Notice Reviewer: [id number] Samara Cardona Notice Issued Date-Time: 08/08/2020 12:29 Notice Type: Patient Choice Letter Notice Delivered To: Patient Relationship to Patient: Self Level Vial Curvature Gauger Name: Delivery Method: HAND - Hand Delivered Pao Days: Prior Verbal Notification: Recipient Understood Notice: Yes Recipient Signature: Yes Med Rec Note Co-signed by Attending: Coverage Notice Comment: Ariana Loco DP export: 08/08/20 5:39 Patient Name: MARCI DUENAS Page 22017 at 1846 All edits/amendments must be made on the electronic document DICTATION DATE: 08/08/201845 BOBBIN WINDER TENDER: JARRET 08/08/201845 RPT#: [id number] DC DATE:08/08/20 STATUS: DIS IN [facility] [address] [place] [address] END OF REPORT
--- NOTE | 2020-08-09 09:31 | CN ---
PATIENT NAME:MARCI DUENAS MEDICAL RECORD: [id number] : [birth year] LOCATION:[facility] [address].2118 ADMIT DATE: 08/06/20 ACCOUNT: [id number] CONSULTING PHYSICIAN: EDMAR BUTLER MD REFERRING PHYSICIAN: KATHY DAVISON MD DATE OF CONSULTATION: 08/06/2020 HISTORY OF PRESENT ILLNESS: A 44-year-old female with no known history of coronary artery disease. She has a history actually of normal coronary anatomy status post recent catheterization back in November of this year, has chronic elevated troponin, increased in the phase of anemia previously, became hypertensive at home, began having chest pain, shortness of breath, has a history of anxiety as well, troponin was elevated. We are asked to see her concerning her cardiovascular status. PAST MEDICAL HISTORY: Otherwise includes; 1. History of hypertension. 2. Hyperlipidemia. 3. Diabetes mellitus. MEDICATIONS: Include Glucotrol 20 mg p.o. b.i.d., insulin before meals and at bedtime, Ativan 0.5 mg p.o. b.i.d. p.r.n., aspirin 325 every day, metoprolol 150 b.i.d., Eliquis 5 b.i.d., Flexeril 10 t.i.d. ALLERGIES: None. SOCIAL HISTORY: Nonsmoker and nondrinker. Easily able to take care of all her ADLs. REVIEW OF SYSTEMS: The patient reports easy bruising but reports no swollen glands. The patient reports no fever, no night sweats, no significant weight gain, no significant weight loss. No significant exercise tolerance. The patient reports no dry eyes, no irritation, no vision change. Patient reports no difficulty hearing and no ear pain. Patient reports no frequent nose bleeds or nose and sinus problems. Patient reports on arm pain on exertion. No shortness of breath while lying down. No history of heart murmur. Patient reports no cough, no wheezing or coughing up blood. Patient reports no abdominal pain, no vomiting. Normal appetite. No diarrhea and not vomiting blood. No nausea and no constipation. Patient reports no incontinence. No difficulty urinating. No hematuria. No increased frequency. Patient reports no muscle aches. No weakness, no arthralgias, no back pain. No swelling of the extremities. Patient reports no abnormal mole, no jaundice, no rashes. Reports no loss of consciousness. No weakness and no numbness. No seizures, dizziness, or headaches. The patient reports no depression, no sleep disturbance, feeling safe in a relationship and no alcohol abuse. Patient reports on fatigue. Reports no runny nose or sinus pressure. No itching, no hives, and no frequent sneezing. PHYSICAL EXAMINATION: GENERAL: Pleasant female in no acute distress, appears stated age. VITAL SIGNS: Blood pressure 136/68, pulse 77 and regular. HEENT: Normocephalic, atraumatic. NECK: No bruits noted. HEART: Regular, S4 gallop is noted. LUNGS: Good air excursion. CONSULT REPORT [id number] MARCI DUENAS ABDOMEN: Soft, nontender. EXTREMITIES: Pulses 2+. No edema. IMPRESSION AND PLAN: Chronically elevated troponin, may be some demand ischemia with recent hypertensive episode. At this point in time, we will check echo for focal wall motion. If wall motion is normal, we would not pursue a more invasive workup especially in lieu of angiography normal earlier this year. TRANSINT:[id number] Voice Confirmation ID: [id number] DOCUMENT ID: [id number] EDMAR BUTLER MD at 0931 CC: [id number] DICTATION DATE: 08/06/20 100 DRINK BOX MECHANIC: 08/06/20 174 DIS IN 08/08/20 [facility] [address] [place] [address]
--- NOTE | 2020-08-09 09:32 | MORECARE ---
CASE MANAGEMENT DISCHARGE SUMMARY PATIENT: MARCI DUENAS UNIT: [id number] ADM DATE: 08/06/20 AGE: 44 : 77 SEX: F ROOM/BED: D.9868 AUTHOR: ALESHA,DOC PHYSICIAN: REFERRING PHYSICIAN: KATHY DAVISON MD DATE OF SERVICE: 08/09/20 Discharge Plan Patient Name: MARCI DUENAS Facility: [facility]:[place] : 1975 Planned Disposition: Home with Home Health Anticipated Discharge Date: 08/08/20 Discharge Date: 08/08/2020 Expected LOS: 2 Initial Reviewer: SHAYY Initial Review Date: 08/08/2020 Generated: 08/09/20 10:32 am Comments DCP- Discharge Planning Updated by [id number]: Sterling Cardona on 08/08/20 5:[address] Patient Name: MARCI DUENAS Admission Status: ER Accout number: [id number] Admission Date: 08-06-2020 : 1975 Admission Diagnosis: Attending: MIHIR Current LOS: 2 Anticipated DC Date: 08-08-2020 Planned Disposition: Home with Home Health Primary Insurance: MEDICAID [place] Discharge Planning Comments: CM met with patient for DC planning. Patient is in agreement with DC Plan. Patient lives home with family. Patient has 3 steps to enter her home and she feels it is safe. PCP: Dr. Rubin. Pharmacy: [facility]. DME: NONE. Emergency contact: Kale Chou (Friend) [phone]. CM discussed HHS, OP Therapy, SNF, Rehab. Patient states she would like to continue HHS with [facility]. JENNIFER signed for same. Clinicals faxed to [facility]. Patient voices no other needs at this time. CM will follow and assist PRN. Pole Climber: Sterling Cardona DCPIA - Discharge Planning Initial Assessment Updated by [email or web address]: Sterling Cardona on 08/08/20 6:37 pm * Is the patient Alert and Oriented? Yes * How many steps to enter\exit or inside your home? 3/0 * PCP Dr Rubin * Pharmacy [facility] [address] * Preadmission Environment Home with Family * ADLs Independent * Equipment None * Other Equipment n/a * List name and contact numbers for known caregivers / representatives who currently or will assist patient after discharge: Kale Chou - [phone] friend * Verbal permission to speak to the caregivers and representatives has been obtained from the patient. No * Community resources currently utilized None * Please name any agencies selected above. n/a * Additional services required to return to the preadmission environment? Yes * Can the patient safely return to the preadmission environment? Yes * Has this patient been hospitalized within the prior 30 days at any hospital? No Coverage Notice Reviewer: [id number] Samara Cardona Notice Issued Date-Time: 08/08/2020 12:29 Notice Type: Patient Choice Letter Notice Delivered To: Patient Relationship to Patient: Self Entry Level Sales Associate Name: Delivery Method: HAND - Hand Delivered Pao Days: Prior Verbal Notification: Recipient Understood Notice: Yes Recipient Signature: Yes Med Rec Note Co-signed by Attending: Coverage Notice Comment: Ariana Loco DP export: 08/08/20 5:46 Patient Name: MARCI DUENAS Page [id number] at 0932 All edits/amendments must be made on the electronic document DICTATION DATE: 08/09/20931 SOIL FERTILITY SPECIALIST: JARRET 08/09/20931 RPT#: [id number] DC DATE:08/08/20 STATUS: DIS IN [facility] [address] [place] [address] END OF REPORT
== END 2020-08-08 14:57 | disposition home health service (06) | DRG 313 ==
LOC: D.ER 01:08 → OBSVTIME 03:18 → D.EDHOLD 03:18 → D.M2 20:10
PROVIDERS: Family Medicine; ADMIT Emergency Medicine; ATTEND Emergency Medicine
DX: R07.9 Chest pain, unspecified (principal); E11.9 Type 2 diabetes mellitus without complications; I10 Essential (primary) hypertension; D64.9 Anemia, unspecified; F41.9 Anxiety disorder, unspecified; R77.8 Other specified abnormalities of plasma proteins; Z86.73 Personal history of transient ischemic attack (TIA), and cerebral infarction without residual deficits